=== PATIENT | female | born 1955 | race Caucasian/White ===

== ENCOUNTER 2018-06-19 13:49 | Inpatient (IN) | payer MEDICARE ==
[2018-06-19] MEDS ORDERED: LIDOCAINE 5% (700 MG) TRANSDERMAL ADH..PATCH TP ONE (14:19)
[2018-06-19] MEDS ORDERED: ACETAMINOPHEN 325 MG TABLET PO ONE (14:19)
[2018-06-19] MEDS ORDERED: IBUPROFEN 600 MG TABLET PO ONE (14:19)
--- NOTE | 2018-06-19 14:20 | ER Document Report ---
ED Medical Screen (RME) - General Chief Complaint: Fall Injury Stated Complaint: LEG INJURY Time Seen by Provider: 06/19/18 14:18 TRAVEL OUTSIDE OF THE [place] IN LAST 30 DAYS: No - HPI Notes: 06/19/18 14:20 Left thigh pain after fall last night patient very anxious tachycardia improved upon entering the examination - Related Data Allergies/Adverse Reactions: merbromin [From Mercurochrome] Allergy (Verified 06/19/18 14:18) Past Medical History - Social History Chew tobacco use (# tins/day): No Frequency of alcohol use: None Drug Abuse: None - Past Medical History Cardiac Medical History: Reports: Hx Hypercholesterolemia Endocrine Medical History: Reports: Hx Diabetes Mellitus Type 2 Renal/ Medical History: Denies: Hx Peritoneal Dialysis Psychiatric Medical History: Reports: Hx Schizophrenia - Immunizations Hx Diphtheria, Pertussis, Tetanus Vaccination: Yes Review of Systems - Review of Systems Musculoskeletal: Other - Thigh pain Physical Exam - Vital signs Vitals: Temp Pulse Resp BP Pulse Ox 97.7 F 127 H 24 H 108/57 L 95 06/19/18 14:02 06/19/18 14:02 06/19/18 14:02 06/19/18 14:02 06/19/18 14:02 - Respiratory Respiratory status: No respiratory distress Chest status: Nontender Breath sounds: Normal Chest palpation: Normal Course - Vital Signs Vital signs: Temp Pulse Resp BP Pulse Ox 97.7 F 127 H 24 H 108/57 L 95 06/19/18 14:02 06/19/18 14:02 06/19/18 14:02 06/19/18 14:02 06/19/18 14:02
--- NOTE | 2018-06-19 14:46 | ER Document Report ---
ED Fall - General Chief Complaint: Fall Injury Stated Complaint: LEG INJURY Time Seen by Provider: 06/19/18 14:18 Notes: 62-year-old female with history of schizophrenia and diabetes who fell last night. States that her foot was asleep and gave out from underneath her. Fell and landed on the left side of her body. Had immediate pain in the left hip. Had pain with standing. Did not want to move. This morning family member stated that she needed to get up but she refused to because of the pain. They were able to get her in the car and brought her to the ER for evaluation. Denies any shortness of breath. Denies any abdominal pain. Denies any other major symptoms. Points to the left hip at the area of the worst pain. TRAVEL OUTSIDE OF THE [place] IN LAST 30 DAYS: No - HPI Occurred: Yesterday Where: Home Context: Tripped Associated symptoms: None Location of injury/pain: Hip Quality of pain: Achy Severity: Moderate Pain Level: 3 - Related data Allergies/Adverse Reactions: merbromin [From Mercurochrome] Allergy (Verified 06/19/18 14:18) Past Medical History - General Information source: Patient - Social History Smoking Status: Current Every Day Smoker Chew tobacco use (# tins/day): No Frequency of alcohol use: None Drug Abuse: None Lives with: Family Family History: Reviewed & Not Pertinent Patient has suicidal ideation: No Patient has homicidal ideation: No - Past Medical History Cardiac Medical History: Reports: Hx Hypercholesterolemia Endocrine Medical History: Reports: Hx Diabetes Mellitus Type 2 Renal/ Medical History: Denies: Hx Peritoneal Dialysis Psychiatric Medical History: Reports: Hx Schizophrenia - Immunizations Hx Diphtheria, Pertussis, Tetanus Vaccination: Yes Review of Systems - Review of Systems Notes: Constitutional: denies: Chills, Diaphoresis, Fever, Malaise, Weakness EENT: denies: Eye discharge, Blurred vision, Tearing, Double vision, Nose congestion, Nose discharge, Throat swelling, Mouth pain Cardiovascular: denies: Palpitations, Heart racing, Orthopnea, Dyspnea, Chest pain Respiratory: denies: Cough, Hurts to breathe, Wheezing, Shortness of breath Gastrointestinal: denies: Abdominal pain, Diarrhea, Nausea, Vomiting, Black stools, bright red blood in stool Genitourinary: denies: Burning, Dysuria, Discharge, Frequency, Flank pain, Hematuria Musculoskeletal: Does complain of pain in the left hip and left knee. Mild deformity of the hip on the left. Hematologic/Lymphatic: denies: Anemia, Easy bleeding, Easy bruising, Blood clots Neurological/Psychological: denies: Confusion, Dementia, Depression, Loss of consciousness Skin: No lesions, no masses, no skin breakdown, no abscesses Physical Exam - Vital signs Vitals: Temp Pulse Resp BP Pulse Ox 97.7 F 127 H 24 H 108/57 L 95 06/19/18 14:02 06/19/18 14:02 06/19/18 14:02 06/19/18 14:02 06/19/18 14:02 Interpretation: Normal - General General appearance: Appears well, Alert - HEENT Head: Normocephalic, Atraumatic Eyes: Normal Pupils: PERRL - Respiratory Respiratory status: No respiratory distress Chest status: Nontender Breath sounds: Normal Chest palpation: Normal - Cardiovascular Rhythm: Regular Heart sounds: Normal auscultation Murmur: No - Abdominal Inspection: Normal Distension: No distension Bowel sounds: Normal Tenderness: Nontender Organomegaly: No organomegaly - Back Back: Normal, Nontender - Extremities General upper extremity: Normal inspection, Nontender, Normal color, Normal ROM , Normal temperature General lower extremity: Normal inspection, Tender, Normal color, Normal temperature, Other - There is pain to palpation of the left hip. Pain with range of motion. Slightly shortened and externally rotated left hip.. No: Nontender, Normal ROM, Normal weight bearing, Shirley's sign - Neurological Neuro grossly intact: Yes Cognition: Normal Orientation: AAOx4 [place] Coma Scale Eye Opening: Spontaneous [place] Coma Scale Verbal: Oriented [place] Coma Scale Motor: Obeys Commands [place] Coma Scale Total: 15 Speech: Normal Motor strength normal: LUE, RUE, LLE, RLE Sensory: Normal - Psychological Associated symptoms: Normal affect, Normal mood - Skin Skin Temperature: Warm Skin Moisture: Dry Skin Color: Normal Course - Re-evaluation Re-evalutation: 06/19/18 15:09 Patient has a femoral neck fracture on the left. Will consult with orthopedic surgery. N.p.o. Will get pre surgical screening labs. Pain medication and reassess. 06/19/18 16:13 Patient has an elevated WBC count with some acute renal failure. Consulted with Dr. Lerma as was unable to get in touch with Dr. Hill. He recommends we admit the patient to the medicine service at this time and they will sort out the orthopedic issues later but patient does not appear to need surgery immediately. 06/19/18 16:14 Laboratory 06/19/18 06/19/18 06/19/18 15:18 15:18 15:18 WBC 17.4 H RBC 3.87 Hgb 13.6 Hct 39.7 MCV 103 H MCH 35.1 H MCHC 34.2 RDW 13.5 Plt Count 189 Seg Neutrophils % 85.8 H Lymphocytes % 7.2 L Monocytes % 6.7 Eosinophils % 0.0 Basophils % 0.3 Absolute Neutrophils 14.9 H Absolute Lymphocytes 1.2 Absolute Monocytes 1.2 Absolute Eosinophils 0.0 Absolute Basophils 0.1 PT 13.3 INR 0.96 APTT 26.3 Sodium 138.5 Potassium 5.0 Chloride 104 Carbon Dioxide 20 L Anion Gap 15 BUN 44 H Creatinine 2.58 H Est GFR ( Amer) 23 L Est GFR (Non-Af Amer) 19 L Glucose 274 H Calcium 11.6 H Total Bilirubin 0.8 Direct Bilirubin 0.4 Neonat Total Bilirubin Not Reportable Neonat Direct Bilirubin Not Reportable Neonat Indirect Bili Not Reportable AST 71 H ALT 23 Alkaline Phosphatase 71 Total Protein 7.9 Albumin 4.4 Femur X-Ray 06/19/18 14:18 IMPRESSION: Moderately displaced fracture of the femoral neck. Hip X-Ray 06/19/18 14:18 IMPRESSION: Moderately displaced left femoral neck fracture. Knee X-Ray 06/19/18 14:18 IMPRESSION: No evidence of acute osseous injury. - Vital Signs Vital signs: Temp Pulse Resp BP Pulse Ox 97.7 F 127 H 24 H 148/67 H 94 06/19/18 14:02 06/19/18 14:02 06/19/18 16:01 06/19/18 16:00 06/19/18 16:01 - Laboratory Result Diagrams: 06/19/18 15:18 06/19/18 15:18 Laboratory results interpreted by me: 06/19/18 06/19/18 15:18 15:18 WBC 17.4 H MCV 103 H MCH 35.1 H Seg Neutrophils % 85.8 H Lymphocytes % 7.2 L Absolute Neutrophils 14.9 H Carbon Dioxide 20 L BUN 44 H Creatinine 2.58 H Est GFR ( Amer) 23 L Est GFR (Non-Af Amer) 19 L Glucose 274 H Calcium 11.6 H AST 71 H - EKG Interpretation by Me EKG shows normal: [place], Intervals, QRS Complexes, ST-T Waves Rate: Tachycardia Discharge - Discharge Clinical Impression: Fracture of femoral neck, left, closed Qualifiers: Encounter type: initial encounter Qualified Code(s): S72.002A - Fracture of unspecified part of neck of left femur, initial encounter for closed fracture Acute renal failure (ARF) Qualifiers: Acute renal failure type: unspecified Qualified Code(s): N17.9 - Acute kidney failure, unspecified Condition: Good Disposition: ADMITTED INPATIENT [facility] Admitted: Telemetry
[2018-06-19 15:29] LABS: ABSOLUTE BASOPHILS # (AUTO) 0.1 10^3/uL (0.0-0.2); ABSOLUTE LYMPHOCYTES (AUTO) 1.2 10^3/uL (0.5-4.7); ABSOLUTE MONOCYTES (AUTO) 1.2 10^3/uL (0.1-1.4); ABSOLUTE NEUT (AUTO) 14.9 10^3/uL (1.7-8.2); BASOPHILS % (AUTO) 0.3 % (0-2); HEMATOCRIT 39.7 % (36.0-47.0); HEMOGLOBIN 13.6 g/dL (12.0-15.5); LYMPHOCYTES % (AUTO) 7.2 % (13-45); MEAN CORPUSCULAR HEMOGLOBIN 35.1 pg (27.0-33.4); MEAN CORPUSCULAR HGB CONC 34.2 g/dL (32.0-36.0); MEAN CORPUSCULAR VOLUME 103 fl (80-97); MONOCYTES % (AUTO) 6.7 % (3-13); PLATELET COUNT 189 10^3/uL (150-450); RED BLOOD COUNT 3.87 10^6/uL (3.72-5.28); RED CELL DISTRIBUTION WIDTH 13.5 % (11.5-14.0); SEGMENTED NEUTROPHILS % (AUTO) 85.8 % (42-78); TOTAL CELLS COUNTED % (AUTO) 100 %; WHITE BLOOD COUNT 17.4 10^3/uL (4.0-10.5)
--- NOTE | 2018-06-19 15:31 | RADIOLOGY REPORT (SQ) ---
EXAM DESCRIPTION: FEMUR LEFT COMPLETED DATE/TIME: 06/19/2018 2:56 pm REASON FOR STUDY: fall leg pain COMPARISON: None. NUMBER OF VIEWS: Four views. TECHNIQUE: Two radiographic images acquired of the left femur to include hip and knee in at least on e projection. LIMITATIONS: None. FINDINGS: MINERALIZATION: Osteopenia. BONES: Moderately displaced fracture of the femoral neck. The femoral head remains well seated withi n the acetabulum. SOFT TISSUES: No obvious swelling or foreign body. OTHER: No other significant finding. IMPRESSION: Moderately displaced fracture of the femoral neck. TECHNICAL DOCUMENTATION: JOB ID: [id number] [email or web address]- All Rights Reserved Reading location - IP/workstation name: [email or web address]
--- NOTE | 2018-06-19 15:32 | RADIOLOGY REPORT (SQ) ---
EXAM DESCRIPTION: KNEE LEFT 3 VIEWS COMPLETED DATE/TIME: 06/19/2018 2:56 pm REASON FOR STUDY: fall leg pain COMPARISON: None. NUMBER OF VIEWS: Three views. TECHNIQUE: Frontal, lateral, and oblique radiographic images acquired of the left knee. LIMITATIONS: None. FINDINGS: MINERALIZATION: Osteopenia. BONES: No acute fracture or dislocation. No worrisome bone lesions. JOINT: No effusion. SOFT TISSUES: No soft tissue swelling. No radio-opaque foreign body. OTHER: No other significant finding. IMPRESSION: No evidence of acute osseous injury. TECHNICAL DOCUMENTATION: JOB ID: [id number] [employer]- All Rights Reserved Reading location - IP/workstation name: [email or web address]
--- NOTE | 2018-06-19 15:33 | RADIOLOGY REPORT (SQ) ---
EXAM DESCRIPTION: HIP LEFT AP/LATERAL COMPLETED DATE/TIME: 06/19/2018 2:56 pm REASON FOR STUDY: fall leg pain COMPARISON: None. NUMBER OF VIEWS: Two views. TECHNIQUE: AP pelvis and additional frog-leg view of the left hip. LIMITATIONS: None. FINDINGS: MINERALIZATION: Normal. LEFT HIP: Moderately displaced femoral neck fracture. RIGHT HIP: No fracture or dislocation. No worrisome bone lesions. PUBIS AND ISCHIUM: No fracture. PELVIS: No fracture. SACRUM: No fracture or dislocation. No worrisome bone lesions. LOWER LUMBAR SPINE: No fracture or dislocation. No worrisome bone lesions. No significant disc disea se. SOFT TISSUES: No findings. OTHER: No other significant finding. IMPRESSION: Moderately displaced left femoral neck fracture. TECHNICAL DOCUMENTATION: JOB ID: [id number] [employer]- All Rights Reserved Reading location - IP/workstation name: [email or web address]
[2018-06-19 15:36] LABS: INTERNATIONAL RATION (INR) 0.96; PROTHROMBIN TIME 13.3 SEC (11.4-15.4)
[2018-06-19 15:37] LABS: PARTIAL THROMBOPLASTIN TIME 26.3 SEC (23.5-35.8)
[2018-06-19] MEDS ORDERED: FENTANYL CITRATE INJ/PF 100 MCG/2 ML AMPUL IV ONE (15:37)
[2018-06-19 15:43] LABS: ALANINE AMINOTRANSFERASE 23 U/L (9-52); ALBUMIN 4.4 g/dL (3.5-5.0); ALKALINE PHOSPHATASE 71 U/L (38-126); ANION GAP 15 (5-19); ASPARTATE AMINO TRANSFERASE 71 U/L (14-36); BILIRUBIN,DIRECT 0.4 mg/dL (0.0-0.4); BILIRUBIN,TOTAL 0.8 mg/dL (0.2-1.3); BLOOD UREA NITROGEN 44 mg/dL (7-20); CALCIUM 11.6 mg/dL (8.4-10.2); CARBON DIOXIDE 20 mmol/L (22-30); CHLORIDE 104 mmol/L (98-107); GLUCOSE 274 mg/dL (75-110); SODIUM 138.5 mmol/L (137-145); TOTAL PROTEIN 7.9 g/dL (6.3-8.2)
[2018-06-19] MEDS ORDERED: NORMAL SALINE 1000 ML 1,000 ML IV ONE (15:46)
[2018-06-19] MEDS ORDERED: NICOTINE 21 MG/24 HR PATCH.TD24 TD ONE (16:29)
[2018-06-19] MEDS ORDERED: ACETAMINOPHEN 650 MG SUPP.RECT PR PRN (18:20)
[2018-06-19] MEDS ORDERED: MAG HYDROX/AL HYDROX/SIMETH SUSP 30 ML UDCUP PO PRN (18:20)
[2018-06-19] MEDS ORDERED: TEMAZEPAM 15 MG CAPSULE PO PRN (18:20)
[2018-06-19] MEDS ORDERED: MAGNESIUM HYDROXIDE SUSP 30 ML UDCUP PO PRN (18:20)
[2018-06-19] MEDS ORDERED: ONDANSETRON HCL INJ/PF 4 MG/2 ML SDV IV PRN (18:20)
[2018-06-19] MEDS ORDERED: ONDANSETRON 4 MG TAB.RAPDIS PO PRN (18:20)
[2018-06-19] MEDS ORDERED: MORPHINE SULFATE 10 MG/ML INJ IV PRN (18:30)
[2018-06-19] MEDS ORDERED: NICOTINE 21 MG/24 HR PATCH.TD24 TD PRN (18:34)
[2018-06-19] MEDS ORDERED: PROMETHAZINE HCL INJ 25 MG/1 ML VIAL IV PRN (18:40)
[2018-06-19 19:44] LABS: CREATINE KINASE MB 14.2 ng/mL (<4.55)
[2018-06-19 19:51] LABS: TROPONIN I 4.48 ng/mL
[2018-06-19] MEDS: 1/2 NORMAL SALINE 1,000 ML IV PRN (19:52)
[2018-06-19] MEDS ORDERED: DOCUSATE SODIUM 100 MG CAPSULE PO ONE (20:00)
--- NOTE | 2018-06-19 20:45 | PDOC H&P ---
History of Present Illness Admission Date/PCP: 06/19/18 16:18 HOLDEN RHODES MD Patient complains of: Fall with injury to left hip History of Present Illness: SHIRLEY MONTAGUE is a 62 year old female who complains of a painful left hip since a fall last evening. He states that she was seated and when she stood to walk she noticed that her left foot was "asleep" causing her left leg to get out from underneath her and a subsequent fall to the floor where she landed on the left side of her body striking her hip and pelvic region as the point of first contact. She noted immediate pain in her left hip and had worse pain when she tried to get up and stand. She stayed in the same position for quite some time until her family members found her in the morning and convinced her that she needed to get up and get some help. She refused to stand or move and so they help to lift her to the car and brought her to the emergency room for evaluation. She indicates that the pain that she has is located in the left hip and is not radiating. The pain is described as a sharp grating pain, worse with any movement and lessened by rest/remaining still. At its worst the pain is a 10 out of 10 in severity and at rest the pain is a 0-1 out of 10. She has not had prior similar episodes and has not identified any additional aggravating or ameliorating factors for her hip pain. She has a past history of schizophrenia and diabetes and takes numerous medications. In the emergency room she was found to have significant renal failure with a creatinine of 2.58 and a BUN of 44. She was admitted to the hospitalist service for medical stabilization prior to surgical attention to her left hip. Dr. Hill will be consulted for orthopedic management. Past Medical History Cardiac Medical History: Reports: Hyperlipidema, Other - Diabetes mellitus type 2 Denies: Atrial Fibrillation, Congestive Heart Failure, Coronary Artery Disease, DVT, Myocardial Infarction, Hypertension, Peripheral Vascular Disease, Pulmonary Embolism, Heart Murmur Pulmonary Medical History: Denies: Asthma, Chronic Obstructive Pulmonary Disease (COPD), Respiratory Failure EENT Medical History: Reports: None Neurological Medical History: Denies: Hemorrhagic CVA, Ischemic CVA, Seizures Endocrine Medical History: Reports: Diabetes Mellitus Type 2 Denies: Diabetes Mellitus Type 1, Hyperthyroidism, Hypothyroidism Renal/ Medical History: Denies: Chronic Kidney Disease, Nephrolithiasis Malignancy Medical History: Reports: None GI Medical History: Denies: Crohn's Disease, Peptic Ulcer Disease, Ulcerative Colitis Musculoskeltal Medical History: Denies: Arthritis, Gout Skin Medical History: Denies: Eczema, Psoriasis Psychiatric Medical History: Reports: Tobacco Dependency, Other - Schizophrenia Denies: Alcohol Dependency Traumatic Medical History: Reports: None Hematology: Denies: Hemophilia, Bleeding Tendencies Infectious Medical History: Reports: None Past Surgical History Past Surgical History: Reports: None Social History Information Source: Patient Lives with: Family Smoking Status: Current Every Day Smoker Cigarettes Packs Per Day: 1.5 Number of Years Smokin Frequency of Alcohol Use: None Hx Recreational Drug Use: No Drugs: None Hx Prescription Drug Abuse: No Family History Family History: DM Parental Family History Reviewed: Yes Children Family History Reviewed: NA Sibling(s) Family History Reviewed.: Yes Medication/Allergy Home Medications: Calcium Carbonate/Vitamin D3 [Calcium 600 + Vit D Caplet] 1 tab-cap PO DAILY Linagliptin [Tradjenta] 5 mg PO QPM 06/19/18 Lisinopril [Prinivil 10 mg Tablet] 10 mg PO DAILY 06/19/18 Multivitamin [Multiple Vitamins] 1 each PO QPM 06/19/18 Quetiapine Fumarate [Seroquel 100 mg Tablet] 100 mg PO DAILY 06/19/18 Rosuvastatin Calcium [Crestor 5 mg Tablet] 5 mg PO DAILY 06/19/18 Thiothixene 5 mg PO QID 06/19/18 Allergies/Adverse Reactions: merbromin [From Mercurochrome] Allergy (Verified 06/19/18 14:18) Review of Systems Constitutional: ABSENT: chills, fever(s) Eyes: ABSENT: visual disturbances, other - Ocular pain Ears: ABSENT: hearing changes, other - ear pain Nose, Mouth, and Throat: ABSENT: mouth pain, sore throat Cardiovascular: ABSENT: chest pain, dyspnea on exertion, edema, palpitations Respiratory: ABSENT: cough, dyspnea Gastrointestinal: ABSENT: abdominal pain, constipation, diarrhea, nausea, vomiting Genitourinary: ABSENT: dysuria, hematuria Musculoskeletal: ABSENT: back pain, deformity Integumentary: ABSENT: pruritus, rash Neurological: ABSENT: convulsions, vertigo Psychiatric: ABSENT: anxiety, depression, hallucinations Endocrine: ABSENT: cold intolerance, heat intolerance Hematologic/Lymphatic: ABSENT: easy bleeding, easy bruising Allergic/Immunologic: ABSENT: seasonal rhinorrhea, other - Insect bite allergy Physical Exam Vital Signs: Temp Pulse Resp BP Pulse Ox 98.2 F 105 H 14 128/61 H 93 06/19/18 17:25 06/19/18 17:25 06/19/18 17:25 06/19/18 17:25 06/19/18 17:25 Intake & Output 06/17/18 06/18/18 06/19/18 23:59 23:59 23:59 Intake Total 1000 Balance 1000 Weight 69.8 kg General appearance: PRESENT: no acute distress, cooperative Head exam: PRESENT: atraumatic, normocephalic Eye exam: ABSENT: conjunctival injection, scleral icterus Ear exam: PRESENT: normal external ear exam. ABSENT: drainage Mouth exam: PRESENT: neck supple, tongue midline Neck exam: ABSENT: thyromegaly, tracheal deviation Respiratory exam: PRESENT: clear to auscultation yasmeen, symmetrical, unlabored Cardiovascular exam: PRESENT: RRR. ABSENT: clicks, gallop, rubs Pulses: PRESENT: normal radial pulses, normal dorsalis pedis pul Vascular exam: PRESENT: normal capillary refill. ABSENT: pallor GI/Abdominal exam: PRESENT: normal bowel sounds, soft Rectal exam: PRESENT: deferred Extremities exam: PRESENT: tenderness - Left hip. ABSENT: joint swelling, pedal edema Musculoskeletal exam: PRESENT: deformity - Shortened and externally rotated left lower extremity. ABSENT: dislocation Neurological exam: PRESENT: alert, oriented to person, oriented to place, oriented to time, oriented to situation, CN II-XII grossly intact. ABSENT: motor sensory deficit Psychiatric exam: PRESENT: appropriate affect, normal mood Skin exam: ABSENT: jaundice, rash, urticaria Results Laboratory Results: 06/19/18 19:09 Creatine Kinase 220 H Impressions: Femur X-Ray 06/19/18 14:18 IMPRESSION: Moderately displaced fracture of the femoral neck. Hip X-Ray 06/19/18 14:18 IMPRESSION: Moderately displaced left femoral neck fracture. Knee X-Ray 06/19/18 14:18 IMPRESSION: No evidence of acute osseous injury. Assessment & Plan - Diagnosis (1) Fracture of femoral neck, left, closed Qualifiers: Encounter type: initial encounter Qualified Code(s): S72.002A - Fracture of unspecified part of neck of left femur, initial encounter for closed fracture Is this a current diagnosis for this admission?: Yes Plan: Dr. Hill has been consulted for management of her hip fracture. We will provide analgesia for her utilizing morphine with a sliding scale giving her 2 mg IV every 3 hours as needed pain 1-2/5, 3 mg IV every 2 hours as needed pain 3 -4/5, 4 mg IV every 1 hour as needed pain 5/5. We will also provide supportive cares and other symptomatic cares as needed. (2) Acute renal failure (ARF) Qualifiers: Acute renal failure type: unspecified Qualified Code(s): N17.9 - Acute kidney failure, unspecified Is this a current diagnosis for this admission?: Yes Plan: Run his renal failure is of uncertain duration but we will treat this by addressing her medications and discontinuing the lisinopril she has been taking will also control her blood sugar as well as possible and evaluate her diabetic control with a hemoglobin A1c in the morning. Additionally will avoid any medications that may worsen renal failure and we will hydrate her and reevaluate our therapy in the morning. (3) Hyperlipidemia Qualifiers: Hyperlipidemia type: unspecified Qualified Code(s): E78.5 - Hyperlipidemia , unspecified Is this a current diagnosis for this admission?: Yes Plan: Shirley will be continued on her formulary substitution for Crestor during her hospital course. (4) Schizophrenia Qualifiers: Schizophrenia type: unspecified Qualified Code(s): F20.9 - Schizophrenia, unspecified Is this a current diagnosis for this admission?: Yes Plan: Shirley has chronic schizophrenia and will be maintained on her usual medications or reasonable substitutions per our formulary. (5) Nicotine dependence with current use Is this a current diagnosis for this admission?: Yes Plan: Patient will be given the opportunity to use a nicotine patch as needed for her nicotine withdrawal symptoms should they occur. - Time Time Spent: 50 to 70 Minutes Smoking Cessation Education: 3 to 10 minutes Medications reviewed and adjusted accordingly: Yes - Plan Summary Plan Summary: Admit to the surgical floor for ongoing treatment of her left femoral neck fracture with Dr. Hill consulting.
[2018-06-19] MEDS: METOPROLOL SUCCINATE 50 MG TAB.SR.24H PO SCH (21:07)
[2018-06-19] MEDS: PANTOPRAZOLE SODIUM 40 MG VIAL IV SCH (21:08)
[2018-06-19] MEDS: QUETIAPINE FUMARATE 100 MG TABLET PO SCH (21:08)
[2018-06-19] MEDS: CHLORPROMAZINE HCL 10 MG TABLET PO SCH (21:09)
--- NOTE | 2018-06-19 21:47 | EKG REPORT ---
SEVERITY:- OTHERWISE NORMAL ECG - SINUS TACHYCARDIA : Confirmed by: Vito Garces MD 19-Jun-2018 21:46:20
[2018-06-19] MEDS: MORPHINE SULFATE 10 MG/ML INJ IV PRN (22:50)
[2018-06-20] MEDS: 1/2 NORMAL SALINE 1,000 ML IV PRN ×3 (00:08→11:35)
[2018-06-20 02:49] LABS: CREATINE KINASE MB 10.6 ng/mL (<4.55); TROPONIN I 4.1 ng/mL
[2018-06-20] MEDS: MORPHINE SULFATE 10 MG/ML INJ IV PRN ×3 (03:30→13:06)
[2018-06-20 07:38] LABS: ABSOLUTE BASOPHILS # (AUTO) 0.1 10^3/uL (0.0-0.2); ABSOLUTE EOSINOPHILS # (AUTO) 0.1 10^3/uL (0.0-0.6); ABSOLUTE LYMPHOCYTES (AUTO) 2.9 10^3/uL (0.5-4.7); ABSOLUTE MONOCYTES (AUTO) 1.4 10^3/uL (0.1-1.4); ABSOLUTE NEUT (AUTO) 9.8 10^3/uL (1.7-8.2); BASOPHILS % (AUTO) 0.4 % (0-2); HEMATOCRIT 34.7 % (36.0-47.0); HEMOGLOBIN 11.7 g/dL (12.0-15.5); LYMPHOCYTES % (AUTO) 20.5 % (13-45); MEAN CORPUSCULAR HEMOGLOBIN 35.4 pg (27.0-33.4); MEAN CORPUSCULAR HGB CONC 33.8 g/dL (32.0-36.0); MEAN CORPUSCULAR VOLUME 105 fl (80-97); MONOCYTES % (AUTO) 9.9 % (3-13); PLATELET COUNT 161 10^3/uL (150-450); RED BLOOD COUNT 3.32 10^6/uL (3.72-5.28); RED CELL DISTRIBUTION WIDTH 13.4 % (11.5-14.0); SEGMENTED NEUTROPHILS % (AUTO) 68.2 % (42-78); TOTAL CELLS COUNTED % (AUTO) 100 %; WHITE BLOOD COUNT 14.4 10^3/uL (4.0-10.5)
[2018-06-20 07:59] LABS: ANION GAP 6 (5-19); BLOOD UREA NITROGEN 35 mg/dL (7-20); CALCIUM 9.1 mg/dL (8.4-10.2); CARBON DIOXIDE 23 mmol/L (22-30); CHLORIDE 112 mmol/L (98-107); CHOLESTEROL 142.41 mg/dL (0-200); CREATINE KINASE 304 U/L (30-135); GLUCOSE 146 mg/dL (75-110); POTASSIUM 4.9 mmol/L (3.6-5.0); SODIUM 140.5 mmol/L (137-145); TRIGLYCERIDES 155 mg/dL (<150)
[2018-06-20 08:11] LABS: DIRECT LDL 82 mg/dL (<100)
[2018-06-20 08:12] LABS: CREATINE KINASE MB 8.6 ng/mL (<4.55); TROPONIN I 3.1 ng/mL
[2018-06-20] MEDS: CHLORPROMAZINE HCL 10 MG TABLET PO SCH ×3 (09:27→22:34)
[2018-06-20] MEDS: METOPROLOL SUCCINATE 50 MG TAB.SR.24H PO SCH (09:27)
[2018-06-20] MEDS: DOCUSATE SODIUM 100 MG CAPSULE PO SCH (09:27)
[2018-06-20] MEDS: PANTOPRAZOLE SODIUM 40 MG VIAL IV SCH ×2 (09:27→22:35)
[2018-06-20] MEDS ORDERED: BUDESONIDE NEB 0.5 MG/2 ML AMPUL NEB SCH (10:00)
[2018-06-20] MEDS: IPRATROPIUM BROMIDE 0.02% NEB 0.5 MG/2.5 ML AMPUL NEB SCH ×2 (11:20→16:05)
[2018-06-20] MEDS: LEVALBUTEROL HCL NEB 1.25 MG/3 ML AMPUL NEB SCH ×2 (11:20→16:06)
--- NOTE | 2018-06-20 13:31 | PDOC PROGRESS REPORT ---
Subjective Progress Note for:: 06/20/18 Subjective:: EDITH MONTAGUE is a 62 year old female who complains of a painful left hip since a fall last evening. He states that she was seated and when she stood to walk she noticed that her left foot was "asleep" causing her left leg to get out from underneath her and a subsequent fall to the floor where she landed on the left side of her body striking her hip and pelvic region as the point of first contact. She noted immediate pain in her left hip and had worse pain when she tried to get up and stand. She stayed in the same position for quite some time until her family members found her in the morning and convinced her that she needed to get up and get some help. She refused to stand or move and so they help to lift her to the car and brought her to the emergency room for evaluation. She indicates that the pain that she has is located in the left hip and is not radiating. The pain is described as a sharp grating pain, worse with any movement and lessened by rest/remaining still. At its worst the pain is a 10 out of 10 in severity and at rest the pain is a 0-1 out of 10. She has not had prior similar episodes and has not identified any additional aggravating or ameliorating factors for her hip pain. She has a past history of schizophrenia and diabetes and takes numerous medications. In the emergency room she was found to have significant renal failure with a creatinine of 2.58 and a BUN of 44. She was admitted to the hospitalist service for medical stabilization prior to surgical attention to her left hip. Dr. Hill will be consulted for orthopedic management. 06/20/18: Edith is doing very well today she slept well and she has been tolerating her IVs and the changes that were made to her medical regimen. She acknowledges that she has had good pain control and she denies new problems or symptoms. She has had no nausea, vomiting, chest pain, dyspnea or palpitations. Her cardiac enzymes have been consistently elevated without substantial change other than that attributed to dilution (due to IV rehydration) over the course of the serial evaluations. Her troponin was 4.48 initially and dropped to 3.1 over the 12-hour course. Her CK-MB was also significantly elevated at 14 and dropped to 8 over the 12-hour course. Again these are considered to be delusional changes as the patient's creatinine was initially 2.58 and dropped to 2.10. Her EKG's show a normal sinus rhythm without evidence of ectopy or cardiac ischemia or injury. Electrolytes are normal and her hemoglobin A1c is 6.2. With these findings and with her general improvement after hydration overnight she is judged to be medically stable for surgical intervention for her left hip fracture. Dr. Hill has been informed that the patient is adequately stable and ready for surgery in person as we extensively discussed her case and medical conditions. Reason For Visit: MODERATELY DISPLACED LEFT FEMORAL NECK FRACTURE Physical Exam Vital Signs: Temp Pulse Resp BP Pulse Ox 98.2 F 75 19 110/47 L 96 06/20/18 12:00 06/20/18 12:00 06/20/18 12:00 06/20/18 12:00 06/20/18 12:00 Intake & Output 06/18/18 06/19/18 06/20/18 23:59 23:59 23:59 Intake Total 1000 2898 Balance 1000 2898 Weight 69.8 kg 67.7 kg General appearance: PRESENT: no acute distress, cooperative Head exam: PRESENT: atraumatic, normocephalic Eye exam: ABSENT: conjunctival injection, scleral icterus Ear exam: PRESENT: normal external ear exam. ABSENT: bleeding Mouth exam: PRESENT: neck supple, tongue midline Neck exam: ABSENT: JVD, thyromegaly, tracheal deviation Respiratory exam: PRESENT: clear to auscultation yasmeen, symmetrical, unlabored Cardiovascular exam: PRESENT: RRR. ABSENT: clicks, gallop, rubs Vascular exam: PRESENT: normal capillary refill. ABSENT: pallor GI/Abdominal exam: PRESENT: normal bowel sounds, soft Rectal exam: PRESENT: deferred Extremities exam: PRESENT: tenderness - Tender left hip to palpation or movement. ABSENT: clubbing, pedal edema Musculoskeletal exam: PRESENT: deformity - Shortening and external rotation of the left lower extremity. ABSENT: ambulatory Neurological exam: PRESENT: alert, oriented to person, oriented to place, oriented to time, oriented to situation, CN II-XII grossly intact. ABSENT: motor sensory deficit Psychiatric exam: PRESENT: appropriate affect, normal mood Skin exam: ABSENT: jaundice, rash, urticaria Results Laboratory Results: 06/20/18 07:30 06/20/18 07:30 06/20/18 06/20/18 06/20/18 07:30 07:30 07:30 WBC 14.4 H RBC 3.32 L Hgb 11.7 L Hct 34.7 L MCV 105 H MCH 35.4 H MCHC 33.8 RDW 13.4 Plt Count 161 Seg Neutrophils % 68.2 Lymphocytes % 20.5 Monocytes % 9.9 Eosinophils % 1.0 Basophils % 0.4 Absolute Neutrophils 9.8 H Absolute Lymphocytes 2.9 Absolute Monocytes 1.4 Absolute Eosinophils 0.1 Absolute Basophils 0.1 Sodium 140.5 Potassium 4.9 Chloride 112 H Carbon Dioxide 23 Anion Gap 6 BUN 35 H Creatinine 2.10 H Est GFR ( Amer) 29 L Est GFR (Non-Af Amer) 24 L Glucose 146 H Calcium 9.1 Magnesium 1.7 Triglycerides 155 H Cholesterol 142.41 LDL Cholesterol Direct 82 VLDL Cholesterol 31.0 HDL Cholesterol 45 TSH 4.40 06/19/18 06/19/18 06/20/18 19:09 19:09 01:15 Creatine Kinase 220 H 282 H CK-MB (CK-2) 14.20 H Troponin I 4.480 06/20/18 06/20/18 06/20/18 01:15 07:30 07:30 Creatine Kinase 304 H CK-MB (CK-2) 10.60 H 8.60 H Troponin I 4.100 3.100 Impressions: Femur X-Ray 06/19/18 14:18 IMPRESSION: Moderately displaced fracture of the femoral neck. Hip X-Ray 06/19/18 14:18 IMPRESSION: Moderately displaced left femoral neck fracture. Knee X-Ray 06/19/18 14:18 IMPRESSION: No evidence of acute osseous injury. Assessment & Plan - Diagnosis (1) Fracture of femoral neck, left, closed Qualifiers: Encounter type: initial encounter Qualified Code(s): S72.002A - Fracture of unspecified part of neck of left femur, initial encounter for closed fracture Is this a current diagnosis for this admission?: Yes Plan: Dr. Hill has been consulted for management of her hip fracture. We will provide analgesia for her utilizing morphine with a sliding scale giving her 2 mg IV every 3 hours as needed pain 1-2/5, 3 mg IV every 2 hours as needed pain 3 -4/5, 4 mg IV every 1 hour as needed pain 5/5. We will also provide supportive cares and other symptomatic cares as needed. 06/20/18: Patient is medically cleared for surgical intervention concerning her moderately displaced left femoral neck (subcapital) fracture. (2) Acute renal failure (ARF) Qualifiers: Acute renal failure type: unspecified Qualified Code(s): N17.9 - Acute kidney failure, unspecified Is this a current diagnosis for this admission?: Yes Plan: Run his renal failure is of uncertain duration but we will treat this by addressing her medications and discontinuing the lisinopril she has been taking will also control her blood sugar as well as possible and evaluate her diabetic control with a hemoglobin A1c in the morning. Additionally will avoid any medications that may worsen renal failure and we will hydrate her and reevaluate our therapy in the morning. 06/20/18: Patient's renal failure significantly improved with hydration as her creatinine fell from 2.58 down to 2.10. She will be continued on IV fluids and her current regimen. We will follow her daily lab work and reassess therapy on a regular basis. It is most probable that the patient has an underlying chronic renal insufficiency. (3) Hyperlipidemia Qualifiers: Hyperlipidemia type: unspecified Qualified Code(s): E78.5 - Hyperlipidemia , unspecified Is this a current diagnosis for this admission?: Yes Plan: Edith will be continued on her formulary substitution for Crestor during her hospital course. (4) Schizophrenia Qualifiers: Schizophrenia type: unspecified Qualified Code(s): F20.9 - Schizophrenia, unspecified Is this a current diagnosis for this admission?: Yes Plan: Edith has chronic schizophrenia and will be maintained on her usual medications or reasonable substitutions per our formulary. (5) Nicotine dependence with current use Is this a current diagnosis for this admission?: Yes Plan: Patient will be given the opportunity to use a nicotine patch as needed for her nicotine withdrawal symptoms should they occur. - Time Time Spent with patient: 25-34 minutes
[2018-06-20] MEDS ORDERED: PROMETHAZINE HCL INJ 25 MG/1 ML VIAL IV PRN (14:34)
[2018-06-20] MEDS ORDERED: FENTANYL CITRATE INJ/PF 100 MCG/2 ML AMPUL IV PRN ×3 (14:34)
[2018-06-20] MEDS ORDERED: MEPERIDINE HCL/PF INJ 25 MG/1 ML DISP.SYRIN IV PRN (14:34)
[2018-06-20] MEDS ORDERED: DIPHENHYDRAMINE HCL 50 MG/ML VIAL IV PRN (14:34)
[2018-06-20] MEDS ORDERED: PROPOFOL INJ 200 MG/20 ML VIAL IV ONE (15:01)
[2018-06-20] MEDS ORDERED: TRANEXAMIC ACID INJ/PF 1,000 MG/10 ML SDV IV ONE (15:01)
[2018-06-20] MEDS ORDERED: ONDANSETRON HCL INJ/PF 4 MG/2 ML SDV ONE (15:01)
[2018-06-20] MEDS ORDERED: MIDAZOLAM 2 MG/2 ML INJ ONE (15:01)
[2018-06-20] MEDS ORDERED: BUPIVACAINE HCL/DEX-WATER/PF 15 MG/2 ML AMPULE ONE (15:02)
[2018-06-20] MEDS ORDERED: CEFAZOLIN INJ 1 GM VIAL ONE (15:03)
[2018-06-20] MEDS ORDERED: THROMBIN (BOVINE) 5000 UNIT EPITAXIS KIT ONE (15:12)
--- NOTE | 2018-06-20 15:20 | PDOC CONSULTATION ---
Consultation Consult Date: 06/20/18 Consult reason:: Displaced left femoral neck fracture History of Present Illness Admission Date/PCP: 06/19/18 16:18 HOLDEN RHODES MD History of Present Illness: EDITH MONTAGUE is a 62 year old female female with multiple comorbidities including schizophrenia. She is status post fall suffering a displaced left femoral neck fracture. Patient was brought by EMS evaluated by the ER and x- rayed and confirmed diagnosis of left hip fracture. She complains of pain in the groin and pain in the left side. Inability to weight-bear. Pain is 5 out of 5 with motion and at rest is just 1 2 out of 5. Denies any numbness or tingling or paresthesias. Mild deformity of the left lower extremity weakness second to pain. No other extremity deformity or complaints from the fall. Denies any numbness or tingling or paresthesias and denies any loss of consciousness. Past Medical History Cardiac Medical History: Reports: Hyperlipidema, Other - Diabetes mellitus type 2 Denies: Atrial Fibrillation, Congestive Heart Failure, Coronary Artery Disease, DVT, Myocardial Infarction, Hypertension, Peripheral Vascular Disease, Pulmonary Embolism, Heart Murmur Pulmonary Medical History: Denies: Asthma, Chronic Obstructive Pulmonary Disease (COPD), Respiratory Failure EENT Medical History: Reports: None Neurological Medical History: Denies: Hemorrhagic CVA, Ischemic CVA, Seizures Endocrine Medical History: Reports: Diabetes Mellitus Type 2 Denies: Diabetes Mellitus Type 1, Hyperthyroidism, Hypothyroidism Renal/ Medical History: Denies: Chronic Kidney Disease, Nephrolithiasis Malignancy Medical History: Reports: None GI Medical History: Denies: Crohn's Disease, Peptic Ulcer Disease, Ulcerative Colitis Musculoskeltal Medical History: Denies: Arthritis, Gout Skin Medical History: Denies: Eczema, Psoriasis Psychiatric Medical History: Reports: Tobacco Dependency, Other - Schizophrenia Denies: Alcohol Dependency Traumatic Medical History: Reports: None Hematology: Denies: Hemophilia, Bleeding Tendencies Infectious Medical History: Reports: None Past Surgical History Past Surgical History: Reports: None Social History Lives with: Family Smoking Status: Current Every Day Smoker Cigarettes Packs Per Day: 1.5 Number of Years Smokin Frequency of Alcohol Use: None Hx Recreational Drug Use: No Drugs: None Hx Prescription Drug Abuse: No Family History Family History: DM Parental Family History Reviewed: No Children Family History Reviewed: No Sibling(s) Family History Reviewed.: No Medication/Allergy Home Medications: Calcium Carbonate/Vitamin D3 [Calcium 600 + Vit D Caplet] 1 tab-cap PO DAILY Linagliptin [Tradjenta] 5 mg PO QPM 06/19/18 Lisinopril [Prinivil 10 mg Tablet] 10 mg PO DAILY 06/19/18 Multivitamin [Multiple Vitamins] 1 each PO QPM 06/19/18 Quetiapine Fumarate [Seroquel 100 mg Tablet] 100 mg PO DAILY 06/19/18 Rosuvastatin Calcium [Crestor 5 mg Tablet] 5 mg PO DAILY 06/19/18 Thiothixene 5 mg PO QID 06/19/18 Allergies/Adverse Reactions: merbromin [From Mercurochrome] Allergy (Verified 06/19/18 14:18) Review of Systems Review of Systems: Constitutional: [PRESENT: as per HPI. ABSENT: chills, fever(s), headache(s), weight gain, weight loss] Eyes: [ABSENT: visual disturbances] Ears: [ABSENT: hearing changes] Cardiovascular: [ABSENT: chest pain, dyspnea on exertion, edema, orthropnea, palpitations] Respiratory: [ABSENT: cough, hemoptysis] Gastrointestinal: [ABSENT: abdominal pain, constipation, diarrhea, hematemesis, hematochezia, nausea, vomiting] Genitourinary: [ABSENT: dysuria, hematuria] Musculoskeletal: As per HPI Integumentary: [ABSENT: rash, wounds] Neurological: [ABSENT: abnormal gait, abnormal speech, confusion, dizziness, focal weakness, syncope] Psychiatric: [ABSENT: anxiety, depression, homicidal ideation, suicidal ideation ] Endocrine: [ABSENT: cold intolerance, heat intolerance, menstrual abnormalities , polydipsia, polyuria] Hematologic/Lymphatic: [ABSENT: easy bleeding, easy bruising, lymphadenopathy] Physical Exam Vital Signs: Temp Pulse Resp BP Pulse Ox 36.6 C 72 19 118/76 95 06/20/18 08:00 06/20/18 08:00 06/20/18 08:00 06/20/18 08:00 06/20/18 08:00 Intake & Output 06/19/18 06/20/18 06/21/18 06:59 06:59 06:59 Intake Total 2898 1000 Balance 2898 1000 Weight 67.7 kg General appearance: PRESENT: no acute distress Head exam: PRESENT: atraumatic, normocephalic Eye exam: PRESENT: EOMI, other. ABSENT: nystagmus Ear exam: PRESENT: normal external ear exam - Symmetric round pupils Mouth exam: PRESENT: neck supple Neck exam: ABSENT: lymphadenopathy, thyromegaly, tracheal deviation Respiratory exam: PRESENT: symmetrical, unlabored. ABSENT: accessory muscle use , tachypnea Cardiovascular exam: PRESENT: RRR Pulses: PRESENT: normal dorsalis pedis pul Vascular exam: PRESENT: normal capillary refill. ABSENT: pallor GI/Abdominal exam: PRESENT: soft. ABSENT: organolmegaly, tenderness Neurological exam: PRESENT: alert, awake, oriented to person, oriented to place , oriented to time, oriented to situation Psychiatric exam: PRESENT: appropriate affect, normal mood Skin exam: PRESENT: intact. ABSENT: erythema, rash, skin tears Adult Front & Back Image: 1 - Tender palpation over the groin and femur. Intense pain with attempted logroll flexion. The left lower extremity is shortened and externally rotated in position. She does have EHL FHL and tibialis anterior with intact motor. Good sensation to light touch and good capillary refill. Results Laboratory Results: 06/20/18 07:30 06/20/18 07:30 06/20/18 06/20/18 06/20/18 07:30 07:30 07:30 WBC 14.4 H RBC 3.32 L Hgb 11.7 L Hct 34.7 L MCV 105 H MCH 35.4 H MCHC 33.8 RDW 13.4 Plt Count 161 Seg Neutrophils % 68.2 Lymphocytes % 20.5 Monocytes % 9.9 Eosinophils % 1.0 Basophils % 0.4 Absolute Neutrophils 9.8 H Absolute Lymphocytes 2.9 Absolute Monocytes 1.4 Absolute Eosinophils 0.1 Absolute Basophils 0.1 Sodium 140.5 Potassium 4.9 Chloride 112 H Carbon Dioxide 23 Anion Gap 6 BUN 35 H Creatinine 2.10 H Est GFR ( Amer) 29 L Est GFR (Non-Af Amer) 24 L Glucose 146 H Calcium 9.1 Magnesium 1.7 Triglycerides 155 H Cholesterol 142.41 LDL Cholesterol Direct 82 VLDL Cholesterol 31.0 HDL Cholesterol 45 TSH 4.40 06/19/18 06/19/18 06/20/18 19:09 19:09 01:15 Creatine Kinase 220 H 282 H CK-MB (CK-2) 14.20 H Troponin I 4.480 06/20/18 06/20/18 06/20/18 01:15 07:30 07:30 Creatine Kinase 304 H CK-MB (CK-2) 10.60 H 8.60 H Troponin I 4.100 3.100 Impressions: Femur X-Ray 06/19/18 14:18 IMPRESSION: Moderately displaced fracture of the femoral neck. Hip X-Ray 06/19/18 14:18 IMPRESSION: Moderately displaced left femoral neck fracture. Knee X-Ray 06/19/18 14:18 IMPRESSION: No evidence of acute osseous injury. Status: Image reviewed by me Assessment & Plan - Diagnosis (1) Fracture of femoral neck, left, closed Qualifiers: Encounter type: initial encounter Qualified Code(s): S72.002A - Fracture of unspecified part of neck of left femur, initial encounter for closed fracture Is this a current diagnosis for this admission?: Yes Plan: 62-year-old female multiple comorbidities including schizophrenia. She has a displaced left femoral neck fracture. Due to her age she probably be best served with a total hip arthroplasty for better function and longevity of the prosthesis versus hemiarthroplasty. Discussed the risk and benefits of proceeding with surgery and the patient understood as well as her family member who signed for consent. Patient has been n.p.o. since midnight and will be taken today to the OR for total hip arthroplasty versus hemiarthroplasty.
[2018-06-20] MEDS ORDERED: EPHEDRINE SULFATE INJ 50 MG/1 ML AMPULE ONE ×2 (15:56→16:36)
[2018-06-20] MEDS ORDERED: GLYCOPYRROLATE 1 MG/5 ML SYRINGE ONE (16:03)
[2018-06-20] MEDS ORDERED: PHENYLEPHRINE HCL INJ/PF 10 MG/1 ML SDV ONE (16:03)
[2018-06-20] MEDS: BUDESONIDE NEB 0.5 MG/2 ML AMPUL NEB SCH (16:05)
--- NOTE | 2018-06-20 16:30 | EKG REPORT ---
SEVERITY:- BORDERLINE ECG - SINUS RHYTHM BORDERLINE T ABNORMALITIES, ANT-LAT LEADS : Confirmed by: Vito Garces MD 20-Jun-2018 16:29:25
[2018-06-20] MEDS ORDERED: VASOPRESSIN INJ 20 UNIT/1 ML VIAL ONE (17:01)
--- NOTE | 2018-06-20 18:23 | Operative Report ---
Operative Report DATE OF SURGERY: 06/20/18 PREOPERATIVE DIAGNOSIS: Displaced left femoral neck fracture POSTOPERATIVE DIAGNOSIS: Same OPERATION: Left total hip arthroplasty SURGEON: TRINIDAD HORTON ANESTHESIA: Spinal TISSUE REMOVED OR ALTERED: Femoral head COMPLICATIONS: None ESTIMATED BLOOD LOSS: 400 mL PROCEDURE: Procedure In Detail: Patient was seen and evaluated in the preoperative holding area. The left lower extremity was initialized and marked. Patient received 2g of Ancef IV for bacterial prophylaxis. Patient was taken back to the operative room where transferred to the operative table and placed under spinal anesthesia. Once they were adequately anesthetized patient was placed in the lateral position an axillary roll was placed in nonoperative left lower extremity was carefully padded.. A surgical team debriefing was performed ensuring all instrumentation was available, the surgical procedure was discussed with possible concerns reviewed. The extremity was prepped with chlor prep draped in a sterile fashion. A timeout was done identifying correct patient, procedure and lower extremity, everyone in attendance agree with this and verbalized no concerns. A posterior skin incision was made just posterior to the greater trochanter. Dissection was done down to the gluteus melia and iliotibial band fascia this was split in line with the skin incision. Any peripheral vasculature was carefully coagulated. A Charley retractor was placed after palpation of the sciatic nerve and the sciatic nerve was safely retracted from the wound throughout the entirety of the case. I then identified the external rotators with the use of a Bovie this was carefully elevated off along with underlying capsule from the neck in a T-shaped capsulotomy was made just superior to the piriformis. This was then tagged. The femoral neck was identified and freshening cut was made but the fracture was all way down to the lesser so there was very little neck left. I then used the corkscrew to remove the femoral head from the acetabulum which was then measured on the back table to be a 46 mm. This point we started reaming after removing the labral tissue and ligament and fovea. We placed our acetabular retractors anteriorly inferiorly and then used our reamer with the guide on. Started with a 44 reamer and reamed all way up to a 50 mm. We implanted a 50 mm cup and secured it with one screw. A standard liner with a 10 degree lip was then implanted and secured. I then turned my attention to femoral preparation. A box osteotome was first used to get laterally along the trochanter. I then used the lateralizing reamer to avoid medialization of the stem and ultimately varus malalignment. I then began broaching with a 0 broach and broached up to a 5 broach. I then utilized the calcar reamer reamed out the appropriate level. I then broached up to a 5 broach again which I got good press fit. I began trialing with a 0 neck length and finally ended up with +5 because had good stability through flexion, internal rotation and adduction. There is no instability with external rotation. Leg lengths were found to be compatible and equal to the other side. At this point the trial implants were removed. The wound was irrigated with normal saline. I then implanted my appropriate size stem the good peripheral fit and placement at my predetermined broach level. I then implanted the final head. The hip was reduced once again measures stability and good stability throughout all range of motion with no palpable impingement. Leg lengths were equivalent to the nonoperative side. I then want to get cindy irrigated the wound with normal saline. Utilizing a #5 FiberWire suture I secured the capsule posteriorly into the trochanter. I then irrigated once again with normal saline. The gluteus melia and tensor fascia elio was closed with #1 Vicryl in a [id number] interrupted fashion. I then injected Exparel in multiple locations throughout the subcutaneous tissues, hip wound and the fascia. I then closed the subcutaneous tissues with interrupted 2-0 Vicryl suture. The skin was closed with donald. Acticoat, 4 x 4 and a sterile OpSite dressing was then placed. Sponge counts, instrument counts and needle counts were correct. Patient was then awoken from anesthesia laid supine at which point her leg lengths were once again checked and found to be equal to the nonoperative extremity. Patient was then transferred to the operating stretcher and placed in an abduction pillow. The was no intraoperative crepitations patient tolerated she will was stable to PACU. Postoperative plan: Patient will be started on Lovenox for DVT prophylaxis. She will begin physical therapy on postop day #1. Implants: Accolade II Size 5 127, 50 mm cup with standard liner with a 10 degree lip, +5 Neck Length
[2018-06-20] MEDS: EPHEDRINE SULFATE INJ 50 MG/1 ML AMPULE ONE ×2 (18:26→18:31)
[2018-06-20] MEDS: ENOXAPARIN SODIUM INJ 40 MG/0.4 ML DISP.SYRIN SUBCUT SCH (18:29)
--- NOTE | 2018-06-20 18:58 | RADIOLOGY REPORT (SQ) ---
EXAM DESCRIPTION: HIP LEFT AP/LATERAL COMPLETED DATE/TIME: 06/20/2018 6:48 pm REASON FOR STUDY: Post Op Long Cassette in PACU COMPARISON: 06/19/2018 NUMBER OF VIEWS: Two views. TECHNIQUE: AP pelvis and additional frog-leg view of the left hip. LIMITATIONS: None. FINDINGS: MINERALIZATION: Osteopenia. LEFT HIP: Status post left total hip arthroplasty. RIGHT HIP: No fracture or dislocation. No worrisome bone lesions. PUBIS AND ISCHIUM: No fracture. PELVIS: No fracture. SACRUM: No fracture or dislocation. No worrisome bone lesions. LOWER LUMBAR SPINE: No fracture or dislocation. No worrisome bone lesions. SOFT TISSUES: Subcutaneous gas and skin donald are seen of the left hip. OTHER: A Marinelli bladder catheter projects within the soft tissues of the pelvis. IMPRESSION: Status post left total hip arthroplasty without evidence of complication. Marinelli bladder catheter. TECHNICAL DOCUMENTATION: JOB ID: [id number] All Rights Reserved Reading location - IP/workstation name: [email or web address]
[2018-06-20] MEDS ORDERED: BUPIVACAINE INJ/PF LIPOSOME/PF 266 MG/20 ML SDV ONE (18:59)
[2018-06-20] MEDS ORDERED: IPRATROPIUM/ALBUTEROL 0.5-2.5 MG/3 ML AMPUL NEB ONE (19:16)
[2018-06-20] MEDS ORDERED: DEXTROSE 5%-WATER 250 ML with NOREPINEPHRINE BITARTRATE 4 MG IV PRN ×2 (19:18)
--- NOTE | 2018-06-20 21:47 | EKG REPORT ---
SEVERITY:- BORDERLINE ECG - SINUS RHYTHM BORDERLINE T ABNORMALITIES, ANT-LAT LEADS : Confirmed by: Vito Garces MD 20-Jun-2018 21:46:28
[2018-06-20] MEDS: NOREPINEPHRINE BITARTRATE INJ/PF 4 MG/4 ML SDV IV ONE (22:26)
[2018-06-20] MEDS: RINGERS SOLUTION,LACTATED 1,000 ML IV PRN (22:27)
[2018-06-20] MEDS: QUETIAPINE FUMARATE 100 MG TABLET PO SCH (22:34)
[2018-06-20] MEDS: DEXTROSE 5%-WATER 250 ML with NOREPINEPHRINE BITARTRATE 4 MG IV PRN ×2 (22:39)
[2018-06-21] MEDS ORDERED: CEFAZOLIN 2 GM/D5W RTU 2 GM/50 ML RTUPB IV SCH
[2018-06-21] MEDS: IPRATROPIUM BROMIDE 0.02% NEB 0.5 MG/2.5 ML AMPUL NEB SCH ×3 (00:39→15:43)
[2018-06-21] MEDS: LEVALBUTEROL HCL NEB 1.25 MG/3 ML AMPUL NEB SCH ×3 (00:39→15:43)
[2018-06-21] MEDS: NOREPINEPHRINE BITARTRATE INJ/PF 4 MG/4 ML SDV IV ONE (02:46)
[2018-06-21] MEDS: RINGERS SOLUTION,LACTATED 1,000 ML IV PRN ×2 (02:48→09:04)
[2018-06-21] MEDS ORDERED: DEXTROSE 40% GEL 15 GM TUBE PO PRN (05:22)
[2018-06-21] MEDS ORDERED: DEXTROSE 40% GEL 15 GM TUBE X 2 PO PRN (05:22)
[2018-06-21] MEDS ORDERED: GLUCAGON,HUMAN RECOMB 1 MG INJ IM PRN (05:22)
[2018-06-21] MEDS ORDERED: DEXTROSE 50%-WATER SYRINGE 25 GM/50 ML DOSE IV PRN (05:22)
[2018-06-21] MEDS ORDERED: DEXTROSE 50%-WATER SYRINGE 12.5 GM/25 ML DOSE IV PRN (05:22)
[2018-06-21] MEDS: TRAMADOL HCL 50 MG TABLET PO PRN ×3 (05:26→17:58)
[2018-06-21 05:36] LABS: ABSOLUTE LYMPHOCYTES (AUTO) 1.2 10^3/uL (0.5-4.7); ABSOLUTE NEUT (AUTO) 7.7 10^3/uL (1.7-8.2); BASOPHILS % (AUTO) 0.2 % (0-2); EOSINOPHILS % (AUTO) 0.4 % (0-6); HEMATOCRIT 30.3 % (36.0-47.0); HEMOGLOBIN 10.3 g/dL (12.0-15.5); LYMPHOCYTES % (AUTO) 12.3 % (13-45); MEAN CORPUSCULAR HEMOGLOBIN 35.5 pg (27.0-33.4); MEAN CORPUSCULAR HGB CONC 33.9 g/dL (32.0-36.0); MEAN CORPUSCULAR VOLUME 105 fl (80-97); MONOCYTES % (AUTO) 10.1 % (3-13); PLATELET COUNT 123 10^3/uL (150-450); RED BLOOD COUNT 2.89 10^6/uL (3.72-5.28); RED CELL DISTRIBUTION WIDTH 13.6 % (11.5-14.0); TOTAL CELLS COUNTED % (AUTO) 100 %
[2018-06-21] MEDS: CHLORPROMAZINE HCL 10 MG TABLET PO SCH ×5 (07:25→22:20)
[2018-06-21] MEDS: DOCUSATE SODIUM 100 MG CAPSULE PO SCH ×3 (07:25→17:43)
[2018-06-21] MEDS: INSULIN LISPRO 100 UNIT/ML 3 ML VIAL SUBCUT PRN ×4 (07:33→22:39)
[2018-06-21] MEDS: BUDESONIDE NEB 0.5 MG/2 ML AMPUL NEB SCH ×2 (08:01→15:46)
[2018-06-21 08:21] LABS: ANION GAP 8 (5-19); BLOOD UREA NITROGEN 30 mg/dL (7-20); CALCIUM 7.3 mg/dL (8.4-10.2); CARBON DIOXIDE 18 mmol/L (22-30); CHLORIDE 111 mmol/L (98-107); GLUCOSE 154 mg/dL (75-110); POTASSIUM 5.4 mmol/L (3.6-5.0); SODIUM 136.5 mmol/L (137-145)
[2018-06-21] MEDS ORDERED: NORMAL SALINE 1000 ML 1,000 ML IV PRN (09:21)
[2018-06-21] MEDS: ENOXAPARIN SODIUM INJ 40 MG/0.4 ML DISP.SYRIN SUBCUT SCH (09:32)
[2018-06-21] MEDS: PANTOPRAZOLE SODIUM 40 MG VIAL IV SCH ×2 (09:32→22:19)
[2018-06-21] MEDS: MAGNESIUM SULFATE/D5W 1 GM/100 ML RTUPB IV SCH ×2 (09:52→13:11)
[2018-06-21 11:30] LABS: ANION GAP 7 (5-19); BLOOD UREA NITROGEN 30 mg/dL (7-20); CALCIUM 7.2 mg/dL (8.4-10.2); CARBON DIOXIDE 18 mmol/L (22-30); CHLORIDE 110 mmol/L (98-107); GLUCOSE 183 mg/dL (75-110); POTASSIUM 4.8 mmol/L (3.6-5.0); SODIUM 135.3 mmol/L (137-145)
[2018-06-21] MEDS ORDERED: LIDOCAINE 1% INJ-PF (10 MG/ML) 30 ML SDV ONE (11:41)
--- NOTE | 2018-06-21 12:06 | Operative Report ---
Nonrecallable Operative Report DATE OF SURGERY: 06/21/18 PREOPERATIVE DIAGNOSIS: Respiratory insufficiency POSTOPERATIVE DIAGNOSIS: Same OPERATION: 1. Placement of right subclavian central venous access catheter. 2. Interpretation a portable chest x-ray SURGEON: JONAS RYAN TISSUE REMOVED OR ALTERED: None COMPLICATIONS: None ESTIMATED BLOOD LOSS: Scant INTRAOPERATIVE FINDINGS: See below PROCEDURE: Informed consent was obtained. The patient was placed in Trendelenburg the right neck and chest wall were exposed, and prepped and draped in a sterile fashion. Surgical plan and surgical timeout discussed. The right subclavian area was anesthetized with 1% lidocaine without epinephrine. Using the variable frequency linear transducer, real time, a 18- gauge needle and wire were threaded into the right internal jugular vein. The tract was dilated up, the dilator removed, and the triple-lumen central venous access catheter was threaded into the right subclavian vein uneventfully to the hub. There was excellent aspiration and flush of saline through all 3 lumens. The catheter was affixed to the skin with a Biopatch and 2-0 silk suture; sterile dressing applied. The patient tolerated the procedure well. There were no complications. Portable upright chest x-ray demonstrated no pneumothorax, with tip of the catheter in the right atrium. Results of x-rays shared with nursing staff. May use central line.
--- NOTE | 2018-06-21 12:15 | RADIOLOGY REPORT (SQ) ---
EXAM DESCRIPTION: CHEST SINGLE VIEW COMPLETED DATE/TIME: 06/21/2018 11:58 am REASON FOR STUDY: [employer] COMPARISON: None. EXAM PARAMETERS: NUMBER OF VIEWS: One view. TECHNIQUE: Single frontal radiographic view of the chest acquired. RADIATION DOSE: NA LIMITATIONS: None. FINDINGS: LUNGS AND PLEURA: No opacities, masses or pneumothorax. No pleural effusion. MEDIASTINUM AND HILAR STRUCTURES: No masses. Contour normal. HEART AND VASCULAR STRUCTURES: Heart normal in size. Normal vasculature. BONES: No acute findings. HARDWARE: Port-A-Cath is identified with its tip projected the level of the superior vena cava. OTHER: No other significant finding. IMPRESSION: Port-A-Cath with its tip projected at the level of the superior vena cava. No pneumotho rax is seen. Other findings as noted above TECHNICAL DOCUMENTATION: JOB ID: [id number] [employer]- All Rights Reserved Reading location - IP/workstation name: [email or web address]
[2018-06-21] MEDS ORDERED: DEXTROSE 5%-WATER 1000 ML 1,000 ML with SODIUM BICARBONATE 150 MEQ IV PRN ×4 (12:34→12:35)
--- NOTE | 2018-06-21 13:54 | PDOC PROGRESS REPORT ---
Subjective Progress Note for:: 06/21/18 Subjective:: EDITH MONTAGUE is a 62 year old female who complains of a painful left hip since a fall last evening. He states that she was seated and when she stood to walk she noticed that her left foot was "asleep" causing her left leg to get out from underneath her and a subsequent fall to the floor where she landed on the left side of her body striking her hip and pelvic region as the point of first contact. She noted immediate pain in her left hip and had worse pain when she tried to get up and stand. She stayed in the same position for quite some time until her family members found her in the morning and convinced her that she needed to get up and get some help. She refused to stand or move and so they help to lift her to the car and brought her to the emergency room for evaluation. She indicates that the pain that she has is located in the left hip and is not radiating. The pain is described as a sharp grating pain, worse with any movement and lessened by rest/remaining still. At its worst the pain is a 10 out of 10 in severity and at rest the pain is a 0-1 out of 10. She has not had prior similar episodes and has not identified any additional aggravating or ameliorating factors for her hip pain. She has a past history of schizophrenia and diabetes and takes numerous medications. In the emergency room she was found to have significant renal failure with a creatinine of 2.58 and a BUN of 44. She was admitted to the hospitalist service for medical stabilization prior to surgical attention to her left hip. Dr. iHll will be consulted for orthopedic management. 06/20/18: Edith is doing very well today she slept well and she has been tolerating her IVs and the changes that were made to her medical regimen. She acknowledges that she has had good pain control and she denies new problems or symptoms. She has had no nausea, vomiting, chest pain, dyspnea or palpitations. Her cardiac enzymes have been consistently elevated without substantial change other than that attributed to dilution (due to IV rehydration) over the course of the serial evaluations. Her troponin was 4.48 initially and dropped to 3.1 over the 12-hour course. Her CK-MB was also significantly elevated at 14 and dropped to 8 over the 12-hour course. Again these are considered to be delusional changes as the patient's creatinine was initially 2.58 and dropped to 2.10. Her EKG's show a normal sinus rhythm without evidence of ectopy or cardiac ischemia or injury. Electrolytes are normal and her hemoglobin A1c is 6.2. With these findings and with her general improvement after hydration overnight she is judged to be medically stable for surgical intervention for her left hip fracture. Dr. Hill has been informed that the patient is adequately stable and ready for surgery in person as we extensively discussed her case and medical conditions. 06/21/18: Edith was moved to the ICU after her surgery due to prolonged post-operative/ post-anesthetic hypotension of uncertain etiology. Her blood pressure was definitely depressed and required pressor support with Levophed and continued hydration. Her blood pressure gradually improved and this morning her Levophed was finally discontinued. She is remained stable with no further hypotension since that time but she is being watched closely in the ICU for any recurrence. She is alert and oriented this morning and is happy to have had her surgery. She has moved her leg a little bit and it still hurts but not like it did before. She has been able to eat and drink well with no nausea, vomiting, diarrhea or abdominal pain and she has not been experiencing chest pain or palpitations. She is breathing well and has not been experiencing dyspnea, cough or pleuritic pain. We discussed the fact that she would need rehabilitation after she gets out of the hospital to continue her recovery and she is willing to go to a rehabilitation center for ongoing care. Staff was unable to obtain a peripheral IV site on the patient and after numerous tries a central line was placed with Dr. Farfan being consulted for that procedure. If her blood pressure remained stable throughout the remainder of the day with no need for restarting pressors she will be transferred to the floor tomorrow and possibly discharged on Thursday or . Reason For Visit: MODERATELY DISPLACED LEFT FEMORAL NECK FRACTURE Physical Exam Vital Signs: Temp Pulse Resp BP Pulse Ox 97.2 F 92 22 H 97/46 L 98 06/21/18 12:00 06/21/18 10:00 06/21/18 08:00 06/21/18 08:00 06/21/18 08:00 Intake & Output 06/19/18 06/20/18 06/21/18 23:59 23:59 23:59 Intake Total 1000 6998 1956 Output Total 3150 905 Balance 1000 3849 1051 Weight 69.8 kg 67.7 kg 74.7 kg General appearance: PRESENT: no acute distress, cooperative Head exam: PRESENT: atraumatic, normocephalic Eye exam: ABSENT: conjunctival injection, scleral icterus Ear exam: PRESENT: normal external ear exam. ABSENT: drainage Mouth exam: PRESENT: neck supple, tongue midline Neck exam: ABSENT: thyromegaly, tracheal deviation Respiratory exam: PRESENT: clear to auscultation yasmeen, symmetrical, unlabored Cardiovascular exam: PRESENT: RRR. ABSENT: clicks, gallop, rubs Pulses: PRESENT: normal radial pulses, normal dorsalis pedis pul Vascular exam: PRESENT: normal capillary refill. ABSENT: pallor GI/Abdominal exam: PRESENT: [place] bowel [place] - [address], soft Rectal exam: PRESENT: deferred Extremities exam: ABSENT: joint swelling, pedal edema Musculoskeletal exam: ABSENT: deformity, dislocation Neurological exam: PRESENT: alert, oriented to person, oriented to place, oriented to time, oriented to situation Psychiatric exam: PRESENT: appropriate affect, normal mood Skin exam: ABSENT: jaundice, rash, urticaria Results Laboratory Results: 06/21/18 05:20 06/21/18 10:36 06/21/18 06/21/18 06/21/18 05:20 05:20 07:49 WBC 10.0 RBC 2.89 L Hgb 10.3 L Hct 30.3 L MCV 105 H MCH 35.5 H MCHC 33.9 RDW 13.6 Plt Count 123 L Seg Neutrophils % 77.0 Lymphocytes % 12.3 L Monocytes % 10.1 Eosinophils % 0.4 Basophils % 0.2 Absolute Neutrophils 7.7 Absolute Lymphocytes 1.2 Absolute Monocytes 1.0 Absolute Eosinophils 0.0 Absolute Basophils 0.0 Sodium Cancelled 136.5 L Potassium Cancelled 5.4 H Chloride Cancelled 111 H Carbon Dioxide Cancelled 18 L Anion Gap Cancelled 8 BUN Cancelled 30 H Creatinine Cancelled 1.61 H Est GFR ( Amer) Cancelled 39 L Est GFR (Non-Af Amer) Cancelled 33 L Glucose Cancelled 154 H Calcium Cancelled 7.3 L Magnesium Cancelled 1.4 L 06/21/18 10:36 WBC RBC Hgb Hct MCV MCH MCHC RDW Plt Count Seg Neutrophils % Lymphocytes % Monocytes % Eosinophils % Basophils % Absolute Neutrophils Absolute Lymphocytes Absolute Monocytes Absolute Eosinophils Absolute Basophils Sodium 135.3 L Potassium 4.8 Chloride 110 H Carbon Dioxide 18 L Anion Gap 7 BUN 30 H Creatinine 1.59 H Est GFR ( Amer) 40 L Est GFR (Non-Af Amer) 33 L Glucose 183 H Calcium 7.2 L Magnesium 1.4 L 06/19/18 06/19/18 06/20/18 19:09 19:09 01:15 Creatine Kinase 220 H 282 H CK-MB (CK-2) 14.20 H Troponin I 4.480 06/20/18 06/20/18 06/20/18 01:15 07:30 07:30 Creatine Kinase 304 H CK-MB (CK-2) 10.60 H 8.60 H Troponin I 4.100 3.100 Impressions: Femur X-Ray 06/19/18 14:18 IMPRESSION: Moderately displaced fracture of the femoral neck. Knee X-Ray 06/19/18 14:18 IMPRESSION: No evidence of acute osseous injury. Hip X-Ray 06/20/18 18:27 IMPRESSION: Status post left total hip arthroplasty without evidence of complication. Marinelli bladder catheter. Chest X-Ray 06/21/18 11:45 IMPRESSION: Port-A-Cath with its tip projected at the level of the superior vena cava. No pneumothorax is seen. Other findings as noted above Assessment & Plan - Diagnosis (1) Fracture of femoral neck, left, closed Qualifiers: Encounter type: initial encounter Qualified Code(s): S72.002A - Fracture of unspecified part of neck of left femur, initial encounter for closed fracture Is this a current diagnosis for this admission?: Yes Plan: Dr. Hill has been consulted for management of her hip fracture. We will provide analgesia for her utilizing morphine with a sliding scale giving her 2 mg IV every 3 hours as needed pain 1-2/5, 3 mg IV every 2 hours as needed pain 3 -4/5, 4 mg IV every 1 hour as needed pain 5/5. We will also provide supportive cares and other symptomatic cares as needed. 06/20/18: Patient is medically cleared for surgical intervention concerning her moderately displaced left femoral neck (subcapital) fracture. 06/21/18: The patient had her hip surgical repair yesterday and it was performed under a spinal anesthetic with the complication of a postoperative/post anesthetic prolonged period of hypotension. This required the patient to be placed to the ICU for further care and blood pressure support utilizing Levophed. Surgical management of the patient's hip fracture will be continued by Dr. Hill. (2) Arterial hypotension Qualifiers: Hypotension type: unspecified hypotension type Qualified Code(s): I95.9 - Hypotension, unspecified Is this a current diagnosis for this admission?: Yes Plan: 06/21/18: Patient had not been hypotensive until after she received spinal anesthesia and surgery. She was noted to be hypotensive in the intraoperative and postoperative phases of her surgery. In the postoperative area her blood pressure dropped to the low 80s systolic and she was transferred to the ICU where she was started on Levophed to support her blood pressure. This was continued overnight and her blood pressure responded well and by morning Levophed was able to be withdrawn with her blood pressure continuing to be greater than 90 systolic thereafter. She will be observed for the rest of today and tonight and could be transferred back to the floor from the ICU tomorrow if her pressure stays in a normotensive range. (3) Acute renal failure (ARF) Qualifiers: Acute renal failure type: unspecified Qualified Code(s): N17.9 - Acute kidney failure, unspecified Is this a current diagnosis for this admission?: Yes Plan: Run his renal failure is of uncertain duration but we will treat this by addressing her medications and discontinuing the lisinopril she has been taking will also control her blood sugar as well as possible and evaluate her diabetic control with a hemoglobin A1c in the morning. Additionally will avoid any medications that may worsen renal failure and we will hydrate her and reevaluate our therapy in the morning. 06/20/18: Patient's renal failure significantly improved with hydration as her creatinine fell from 2.58 down to 2.10. She will be continued on IV fluids and her current regimen. We will follow her daily lab work and reassess therapy on a regular basis. It is most probable that the patient has an underlying chronic renal insufficiency. 06/21/18: Patient's renal failure is improved significantly more with her creatinine falling to the 1.6 range on today's labs. Her BUN has also fallen concomitantly with the creatinine. We will continue to observe her daily lab work and continue appropriate hydration. Her episode of hypotension after surgery does not appear to have caused further kidney injury at this time however ongoing evaluation and observation is required. (4) Hyperlipidemia Qualifiers: Hyperlipidemia type: unspecified Qualified Code(s): E78.5 - Hyperlipidemia , unspecified Is this a current diagnosis for this admission?: Yes Plan: Edith will be continued on her formulary substitution for Crestor during her hospital course. (5) Schizophrenia Qualifiers: Schizophrenia type: unspecified Qualified Code(s): F20.9 - Schizophrenia, unspecified Is this a current diagnosis for this admission?: Yes Plan: Edith has chronic schizophrenia and will be maintained on her usual medications or reasonable substitutions per our formulary. (6) Nicotine dependence with current use Is this a current diagnosis for this admission?: Yes Plan: Patient will be given the opportunity to use a nicotine patch as needed for her nicotine withdrawal symptoms should they occur. 06/21/18: Edith's family members feel that her positive Thorazine is considerably better than her response was to thiothixene and have inquired about the potential for her being discharged on Thorazine instead of thiothixene when that time comes. I have instructed them that I will make this note on the chart for the next physician to make up his own mind as to whether he wishes to make that therapeutic substitution. I did let the family know that I could not think of any reason why she should not take Thorazine versus thiothixene as the drugs are of the same class however they do have a slightly different side effect profile. - Time Time Spent with patient: 25-34 minutes Medications reviewed and adjusted accordingly: Yes Anticipated discharge: SNF Within: within 72 hours
[2018-06-21] MEDS: NORMAL SALINE 1000 ML 1,000 ML IV PRN ×3 (15:44→23:34)
[2018-06-21 16:32] LABS: ANION GAP 7 (5-19); BLOOD UREA NITROGEN 26 mg/dL (7-20); CARBON DIOXIDE 17 mmol/L (22-30); CHLORIDE 110 mmol/L (98-107); GLUCOSE 162 mg/dL (75-110); SODIUM 133.9 mmol/L (137-145)
[2018-06-21] MEDS: DEXTROSE 5%-WATER 250 ML with NOREPINEPHRINE BITARTRATE 4 MG IV PRN ×2 (17:51)
--- NOTE | 2018-06-21 19:08 | PDOC PROGRESS REPORT ---
Subjective Progress Note for:: 06/21/18 Subjective:: Patient is alert and awake. States her pain is present but controlled with tramadol. Unable to take narcotics due to hypotension. Reason For Visit: MODERATELY DISPLACED LEFT FEMORAL NECK FRACTURE Physical Exam Vital Signs: Temp Pulse Resp BP Pulse Ox 36.2 C 95 20 97/46 L 96 06/21/18 12:00 06/21/18 15:46 06/21/18 15:46 06/21/18 08:00 06/21/18 15:46 Intake & Output 06/20/18 06/21/18 06/22/18 06:59 06:59 06:59 Intake Total 2898 5879 1279 Output Total 3825 480 Balance 2898 2054 799 Weight 67.7 kg 74.7 kg 74.7 kg Adult Front & Back Image: 1 - Dressing is dry clean and intact. Swelling is appropriate with no ecchymosis. She has soft calves with intact EHL FHL and tibialis anterior. Good sensation to light touch with good capillary refill. Limb lengths are grossly equal. Abduction frame is in good position. Results Laboratory Results: 06/21/18 05:20 06/21/18 16:00 06/21/18 06/21/18 06/21/18 05:20 05:20 07:49 WBC 10.0 RBC 2.89 L Hgb 10.3 L Hct 30.3 L MCV 105 H MCH 35.5 H MCHC 33.9 RDW 13.6 Plt Count 123 L Seg Neutrophils % 77.0 Lymphocytes % 12.3 L Monocytes % 10.1 Eosinophils % 0.4 Basophils % 0.2 Absolute Neutrophils 7.7 Absolute Lymphocytes 1.2 Absolute Monocytes 1.0 Absolute Eosinophils 0.0 Absolute Basophils 0.0 Sodium Cancelled 136.5 L Potassium Cancelled 5.4 H Chloride Cancelled 111 H Carbon Dioxide Cancelled 18 L Anion Gap Cancelled 8 BUN Cancelled 30 H Creatinine Cancelled 1.61 H Est GFR ( Amer) Cancelled 39 L Est GFR (Non-Af Amer) Cancelled 33 L Glucose Cancelled 154 H Calcium Cancelled 7.3 L Magnesium Cancelled 1.4 L Albumin 06/21/18 06/21/18 06/21/18 10:36 16:00 16:49 WBC RBC Hgb Hct MCV MCH MCHC RDW Plt Count Seg Neutrophils % Lymphocytes % Monocytes % Eosinophils % Basophils % Absolute Neutrophils Absolute Lymphocytes Absolute Monocytes Absolute Eosinophils Absolute Basophils Sodium 135.3 L 133.9 L Potassium 4.8 4.0 Chloride 110 H 110 H Carbon Dioxide 18 L 17 L Anion Gap 7 7 BUN 30 H 26 H Creatinine 1.59 H 1.55 H Est GFR ( Amer) 40 L 41 L Est GFR (Non-Af Amer) 33 L 34 L Glucose 183 H 162 H Calcium 7.2 L 7.0 L* Magnesium 1.4 L 2.2 Albumin 2.3 L 06/19/18 06/19/18 06/20/18 19:09 19:09 01:15 Creatine Kinase 220 H 282 H CK-MB (CK-2) 14.20 H Troponin I 4.480 06/20/18 06/20/18 06/20/18 01:15 07:30 07:30 Creatine Kinase 304 H CK-MB (CK-2) 10.60 H 8.60 H Troponin I 4.100 3.100 Impressions: Femur X-Ray 06/19/18 14:18 IMPRESSION: Moderately displaced fracture of the femoral neck. Knee X-Ray 06/19/18 14:18 IMPRESSION: No evidence of acute osseous injury. Hip X-Ray 06/20/18 18:27 IMPRESSION: Status post left total hip arthroplasty without evidence of complication. Marinelli bladder catheter. Chest X-Ray 06/21/18 11:45 IMPRESSION: Port-A-Cath with its tip projected at the level of the superior vena cava. No pneumothorax is seen. Other findings as noted above Status: Image reviewed by me Assessment & Plan - Diagnosis (1) Fracture of femoral neck, left, closed Qualifiers: Encounter type: initial encounter Qualified Code(s): S72.002A - Fracture of unspecified part of neck of left femur, initial encounter for closed fracture Is this a current diagnosis for this admission?: Yes Plan: Patient is 62-year-old female POD #1 from left total hip arthroplasty due to 2 displaced femoral neck fracture. Will refer to ICU for management of her hypotension. H&H will be monitored although today was 06/29 and during surgery last was normal. Continue physical therapy Continue pain control Continue DVT prophylaxis
[2018-06-21] MEDS: QUETIAPINE FUMARATE 100 MG TABLET PO SCH (22:20)
[2018-06-21 23:09] LABS: ANION GAP 7 (5-19); BLOOD UREA NITROGEN 21 mg/dL (7-20); CARBON DIOXIDE 16 mmol/L (22-30); CHLORIDE 112 mmol/L (98-107); GLUCOSE 156 mg/dL (75-110)
[2018-06-21 23:19] LABS: CALCIUM 6.8 mg/dL (8.4-10.2)
[2018-06-22] MEDS: LEVALBUTEROL HCL NEB 1.25 MG/3 ML AMPUL NEB SCH ×3 (00:26→15:54)
[2018-06-22] MEDS: IPRATROPIUM BROMIDE 0.02% NEB 0.5 MG/2.5 ML AMPUL NEB SCH ×3 (00:27→15:54)
[2018-06-22] MEDS: NORMAL SALINE 1000 ML 1,000 ML IV PRN ×2 (04:06→23:14)
[2018-06-22] MEDS: TRAMADOL HCL 50 MG TABLET PO PRN (04:21)
[2018-06-22 06:20] LABS: ABSOLUTE EOSINOPHILS # (AUTO) 0.1 10^3/uL (0.0-0.6); ABSOLUTE LYMPHOCYTES (AUTO) 1.2 10^3/uL (0.5-4.7); ABSOLUTE MONOCYTES (AUTO) 0.9 10^3/uL (0.1-1.4); ABSOLUTE NEUT (AUTO) 5.3 10^3/uL (1.7-8.2); BASOPHILS % (AUTO) 0.2 % (0-2); EOSINOPHILS % (AUTO) 0.7 % (0-6); HEMATOCRIT 20.3 % (36.0-47.0); LYMPHOCYTES % (AUTO) 15.5 % (13-45); MEAN CORPUSCULAR HEMOGLOBIN 36.1 pg (27.0-33.4); MEAN CORPUSCULAR HGB CONC 34.7 g/dL (32.0-36.0); MEAN CORPUSCULAR VOLUME 104 fl (80-97); MONOCYTES % (AUTO) 12.5 % (3-13); PLATELET COUNT 103 10^3/uL (150-450); RED BLOOD COUNT 1.95 10^6/uL (3.72-5.28); RED CELL DISTRIBUTION WIDTH 12.9 % (11.5-14.0); SEGMENTED NEUTROPHILS % (AUTO) 71.1 % (42-78); TOTAL CELLS COUNTED % (AUTO) 100 %; WHITE BLOOD COUNT 7.5 10^3/uL (4.0-10.5)
[2018-06-22 06:29] LABS: ANION GAP 6 (5-19); BLOOD UREA NITROGEN 18 mg/dL (7-20); CARBON DIOXIDE 16 mmol/L (22-30); CHLORIDE 115 mmol/L (98-107); GLUCOSE 141 mg/dL (75-110); SODIUM 137.2 mmol/L (137-145)
[2018-06-22 06:50] LABS: CALCIUM 6.3 mg/dL (8.4-10.2)
[2018-06-22 07:02] LABS: HEMOGLOBIN 7.1 g/dL (12.0-15.5)
[2018-06-22] MEDS: INSULIN LISPRO 100 UNIT/ML 3 ML VIAL SUBCUT PRN ×3 (07:47→20:54)
[2018-06-22] MEDS ORDERED: CALCIUM GLUCONATE 1,000 MG in DEXTROSE 5%-WATER 50 ML IV ONE (08:06)
[2018-06-22] MEDS: BUDESONIDE NEB 0.5 MG/2 ML AMPUL NEB SCH ×2 (08:50→15:54)
[2018-06-22] MEDS: PANTOPRAZOLE SODIUM 40 MG VIAL IV SCH (09:12)
[2018-06-22] MEDS: DOCUSATE SODIUM 100 MG CAPSULE PO SCH ×2 (09:12→17:28)
[2018-06-22] MEDS ORDERED: FUROSEMIDE INJ/PF 20 MG/2 ML SDV IV PRN (09:15)
[2018-06-22] MEDS: CHLORPROMAZINE HCL 10 MG TABLET PO SCH ×4 (09:26→21:02)
[2018-06-22] MEDS ORDERED: CALCIUM GLUCONATE 1000 MG/10 ML INJ IV ONE (09:30)
--- NOTE | 2018-06-22 11:37 | PDOC PROGRESS REPORT ---
Subjective Progress Note for:: 06/22/18 Subjective:: The patient is feeling much improved this morning. She does complain of a cough. She just finished a nebulizer treatment. She still feels weak and it was noted that her hemoglobin has continued to decline. She will be receiving 2 units of packed red blood cells today. Her blood pressure is improving as well. Reason For Visit: MODERATELY DISPLACED LEFT FEMORAL NECK FRACTURE Physical Exam Vital Signs: Temp Pulse Resp BP Pulse Ox 98.4 F 102 H 29 H 124/56 L 94 06/22/18 11:06 06/22/18 11:06 06/22/18 11:06 06/22/18 11:06 06/22/18 11:06 Intake & Output 06/21/18 06/22/18 06/23/18 06:59 06:59 06:59 Intake Total 5879 4454 350 Output Total 3825 2805 530 Balance 2054 1649 -180 Weight 74.7 kg 77.4 kg General appearance: PRESENT: no acute distress, cooperative, well-developed, well-nourished Head exam: PRESENT: atraumatic, normocephalic Eye exam: PRESENT: conjunctiva pale, EOMI. ABSENT: scleral icterus Ear exam: PRESENT: normal external ear exam Mouth exam: PRESENT: dry mucosa Neck exam: PRESENT: full ROM. ABSENT: carotid bruit, JVD, lymphadenopathy Respiratory exam: PRESENT: clear to auscultation yasmeen, symmetrical. ABSENT: rales, rhonchi, wheezes Cardiovascular exam: PRESENT: RRR, +S1, +S2, systolic murmur, other - 2/6 systolic murmur. Pulses: PRESENT: +1 pedal pulses bilateral GI/Abdominal exam: PRESENT: normal bowel sounds, soft. ABSENT: distended, guarding, mass, organolmegaly, rebound, tenderness Rectal exam: PRESENT: deferred Extremities exam: ABSENT: calf tenderness, pedal edema Musculoskeletal exam: PRESENT: normal inspection, other - Recent left femoral neck fracture repair Neurological exam: PRESENT: alert, oriented to person, oriented to place, oriented to time, oriented to situation, CN II-XII grossly intact Psychiatric exam: PRESENT: appropriate affect Skin exam: PRESENT: dry, intact, warm. ABSENT: cyanosis, rash Results Laboratory Results: 06/22/18 06:00 06/22/18 06:00 06/21/18 06/21/18 06/21/18 10:36 16:00 16:49 WBC RBC Hgb Hct MCV MCH MCHC RDW Plt Count Seg Neutrophils % Lymphocytes % Monocytes % Eosinophils % Basophils % Absolute Neutrophils Absolute Lymphocytes Absolute Monocytes Absolute Eosinophils Absolute Basophils Sodium 135.3 L 133.9 L Potassium 4.8 4.0 Chloride 110 H 110 H Carbon Dioxide 18 L 17 L Anion Gap 7 7 BUN 30 H 26 H Creatinine 1.59 H 1.55 H Est GFR ( Amer) 40 L 41 L Est GFR (Non-Af Amer) 33 L 34 L Glucose 183 H 162 H Calcium 7.2 L 7.0 L* Magnesium 1.4 L 2.2 Albumin 2.3 L Blood Type Antibody Screen 06/21/18 06/21/18 06/22/18 22:45 22:45 06:00 WBC RBC Hgb Hct MCV MCH MCHC RDW Plt Count Seg Neutrophils % Lymphocytes % Monocytes % Eosinophils % Basophils % Absolute Neutrophils Absolute Lymphocytes Absolute Monocytes Absolute Eosinophils Absolute Basophils Sodium 135.0 L 137.2 Potassium 4.0 4.0 Chloride 112 H 115 H Carbon Dioxide 16 L 16 L Anion Gap 7 6 BUN 21 H 18 Creatinine 1.44 H 1.26 H Est GFR ( Amer) 45 L 52 L Est GFR (Non-Af Amer) 37 L 43 L Glucose 156 H 141 H Calcium 6.8 L* 6.3 L* Magnesium 2.1 1.9 Albumin 2.2 L Blood Type Antibody Screen 06/22/18 06/22/18 06/22/18 06:00 06:00 07:30 WBC 7.5 RBC 1.95 L Hgb 7.1 L D Hct 20.3 L MCV 104 H MCH 36.1 H MCHC 34.7 RDW 12.9 Plt Count 103 L Seg Neutrophils % 71.1 Lymphocytes % 15.5 Monocytes % 12.5 Eosinophils % 0.7 Basophils % 0.2 Absolute Neutrophils 5.3 Absolute Lymphocytes 1.2 Absolute Monocytes 0.9 Absolute Eosinophils 0.1 Absolute Basophils 0.0 Sodium Potassium Chloride Carbon Dioxide Anion Gap BUN Creatinine Est GFR ( Amer) Est GFR (Non-Af Amer) Glucose Calcium Magnesium Albumin 1.9 L Blood Type O POSITIVE Antibody Screen NEGATIVE 06/19/18 06/19/18 06/20/18 19:09 19:09 01:15 Creatine Kinase 220 H 282 H CK-MB (CK-2) 14.20 H Troponin I 4.480 06/20/18 06/20/18 06/20/18 01:15 07:30 07:30 Creatine Kinase 304 H CK-MB (CK-2) 10.60 H 8.60 H Troponin I 4.100 3.100 Impressions: Femur X-Ray 06/19/18 14:18 IMPRESSION: Moderately displaced fracture of the femoral neck. Knee X-Ray 06/19/18 14:18 IMPRESSION: No evidence of acute osseous injury. Hip X-Ray 06/20/18 18:27 IMPRESSION: Status post left total hip arthroplasty without evidence of complication. Marinelli bladder catheter. Chest X-Ray 06/21/18 11:45 IMPRESSION: Port-A-Cath with its tip projected at the level of the superior vena cava. No pneumothorax is seen. Other findings as noted above Assessment & Plan - Diagnosis (1) Arterial hypotension Qualifiers: Hypotension type: unspecified hypotension type Qualified Code(s): I95.9 - Hypotension, unspecified Is this a current diagnosis for this admission?: Yes Plan: The patient's hypotension etiology is unclear but it was post anesthesia. She continues to taper off of her levo fed. Her IV fluid was decreased to 150 mL/ h. Her blood pressure should also improve with the administration of 2 units of packed red blood cells. She denies any lightheadedness or dizziness and this certainly will be reassessed when she is able to increase her activity. We will consider transfer to the floor once she is off of her Levophed. (2) Acute renal failure (ARF) Qualifiers: Acute renal failure type: unspecified Qualified Code(s): N17.9 - Acute kidney failure, unspecified Is this a current diagnosis for this admission?: Yes Plan: With her large volume of IV fluid as well as today's transfusion, the patient's serum creatinine continues to improve. Her creatinine today is down to 1.26 with an estimated GFR of 43. (3) Fracture of femoral neck, left, closed Qualifiers: Encounter type: initial encounter Qualified Code(s): S72.002A - Fracture of unspecified part of neck of left femur, initial encounter for closed fracture Is this a current diagnosis for this admission?: Yes Plan: This was surgically repaired on June 20. Orthopedic surgery is following the patient. She remains on Lovenox prophylaxis dosing. (4) Acute anemia Is this a current diagnosis for this admission?: Yes Plan: The patient has developed acute anemia. It is likely a combination of aggressive IV hydration with dilution and her recent surgery. There was no reported excessive blood loss. She will receive 2 units of packed red blood cells today with 20 mg of furosemide between the units. She will have blood work within 2 hours of the completion of the second unit of packed cells as well as a CBC tomorrow. (5) Hyperlipidemia Qualifiers: Hyperlipidemia type: unspecified Qualified Code(s): E78.5 - Hyperlipidemia , unspecified Is this a current diagnosis for this admission?: Yes Plan: Continue statin therapy for the duration of her stay. (6) Schizophrenia Qualifiers: Schizophrenia type: unspecified Qualified Code(s): F20.9 - Schizophrenia, unspecified Is this a current diagnosis for this admission?: Yes Plan: The patient was previously on thiothixene for her chronic schizophrenia. During her inpatient stay she has been on Thorazine as well as Seroquel 100 mg at bedtime. Her family feels that she is improved on this regimen. Consideration to continue this regimen as an outpatient will be given. (7) Nicotine dependence with current use Is this a current diagnosis for this admission?: Yes Plan: The patient continues to use the nicotine patch to help prevent withdrawal symptoms.
[2018-06-22] MEDS: ENOXAPARIN SODIUM INJ 40 MG/0.4 ML DISP.SYRIN SUBCUT SCH (13:57)
[2018-06-22 16:35] LABS: ABSOLUTE LYMPHOCYTES (AUTO) 1.3 10^3/uL (0.5-4.7); ABSOLUTE MONOCYTES (AUTO) 0.9 10^3/uL (0.1-1.4); ABSOLUTE NEUT (AUTO) 7.9 10^3/uL (1.7-8.2); BASOPHILS % (AUTO) 0.1 % (0-2); EOSINOPHILS % (AUTO) 0.5 % (0-6); HEMATOCRIT 29.8 % (36.0-47.0); LYMPHOCYTES % (AUTO) 12.7 % (13-45); MEAN CORPUSCULAR HEMOGLOBIN 34.2 pg (27.0-33.4); MEAN CORPUSCULAR HGB CONC 35.3 g/dL (32.0-36.0); MONOCYTES % (AUTO) 8.9 % (3-13); PLATELET COUNT 123 10^3/uL (150-450); RED BLOOD COUNT 3.08 10^6/uL (3.72-5.28); RED CELL DISTRIBUTION WIDTH 16.3 % (11.5-14.0); SEGMENTED NEUTROPHILS % (AUTO) 77.8 % (42-78); TOTAL CELLS COUNTED % (AUTO) 100 %; WHITE BLOOD COUNT 10.2 10^3/uL (4.0-10.5)
[2018-06-22 16:36] LABS: HEMOGLOBIN 10.5 g/dL (12.0-15.5); MEAN CORPUSCULAR VOLUME 97 fl (80-97)
[2018-06-22] MEDS: ACETAMINOPHEN 325 MG TABLET PO PRN (18:53)
[2018-06-22] MEDS: QUETIAPINE FUMARATE 100 MG TABLET PO SCH (21:02)
[2018-06-23] MEDS: LEVALBUTEROL HCL NEB 1.25 MG/3 ML AMPUL NEB SCH ×3 (00:33→16:54)
[2018-06-23] MEDS: IPRATROPIUM BROMIDE 0.02% NEB 0.5 MG/2.5 ML AMPUL NEB SCH ×3 (00:33→16:54)
[2018-06-23] MEDS: NORMAL SALINE 1000 ML 1,000 ML IV PRN ×2 (05:00→13:02)
[2018-06-23 05:11] LABS: HEMATOCRIT 27.1 % (36.0-47.0); HEMOGLOBIN 9.6 g/dL (12.0-15.5); MEAN CORPUSCULAR HEMOGLOBIN 34.2 pg (27.0-33.4); MEAN CORPUSCULAR HGB CONC 35.3 g/dL (32.0-36.0); MEAN CORPUSCULAR VOLUME 97 fl (80-97); PLATELET COUNT 132 10^3/uL (150-450); RED BLOOD COUNT 2.79 10^6/uL (3.72-5.28); RED CELL DISTRIBUTION WIDTH 16.4 % (11.5-14.0)
[2018-06-23 05:28] LABS: ANION GAP 7 (5-19); BLOOD UREA NITROGEN 18 mg/dL (7-20); CALCIUM 7.3 mg/dL (8.4-10.2); CARBON DIOXIDE 17 mmol/L (22-30); CHLORIDE 117 mmol/L (98-107); GLUCOSE 130 mg/dL (75-110); POTASSIUM 3.7 mmol/L (3.6-5.0); SODIUM 140.6 mmol/L (137-145)
[2018-06-23] MEDS: BUDESONIDE NEB 0.5 MG/2 ML AMPUL NEB SCH ×2 (08:30→16:55)
[2018-06-23] MEDS: DOCUSATE SODIUM 100 MG CAPSULE PO SCH ×2 (09:37→17:22)
[2018-06-23] MEDS: CHLORPROMAZINE HCL 10 MG TABLET PO SCH ×4 (09:38→21:20)
[2018-06-23] MEDS: ENOXAPARIN SODIUM INJ 40 MG/0.4 ML DISP.SYRIN SUBCUT SCH (09:38)
[2018-06-23] MEDS: INSULIN LISPRO 100 UNIT/ML 3 ML VIAL SUBCUT PRN ×3 (11:14→21:29)
[2018-06-23] MEDS: POLYETHYLENE GLYCOL 3350 POWDER 17 GM/1 PACKET PO SCH (17:22)
--- NOTE | 2018-06-23 17:51 | PDOC PROGRESS REPORT ---
Subjective Progress Note for:: 06/23/18 Subjective:: Again the patient reports that she is feeling better today. She notes that each day she is feeling stronger. She was out of bed with physical therapy earlier today. She reports no difficulty with her breathing and pain consistent with her hip fracture. She is now off of intravenous pressors and maintaining reasonable blood pressure. Reason For Visit: MODERATELY DISPLACED LEFT FEMORAL NECK FRACTURE Physical Exam Vital Signs: Temp Pulse Resp BP Pulse Ox 99.5 F 117 H 24 H 120/65 97 06/23/18 12:31 06/23/18 16:55 06/23/18 16:55 06/23/18 14:03 06/23/18 16:55 Intake & Output 06/22/18 06/23/18 06/24/18 06:59 06:59 06:59 Intake Total 4454 2565 1688 Output Total 2805 4595 1375 Balance 1649 -2029 313 Weight 77.4 kg 77.2 kg General appearance: PRESENT: no acute distress, cooperative, well-developed, well-nourished Head exam: PRESENT: atraumatic, normocephalic Eye exam: PRESENT: conjunctiva pale, EOMI. ABSENT: scleral icterus Ear exam: PRESENT: normal external ear exam Mouth exam: PRESENT: dry mucosa Neck exam: PRESENT: full ROM. ABSENT: carotid bruit, JVD, tenderness Respiratory exam: PRESENT: clear to auscultation yasmeen, symmetrical. ABSENT: accessory muscle use, chest wall tenderness, rales, rhonchi, wheezes Cardiovascular exam: PRESENT: RRR, systolic murmur Pulses: PRESENT: normal radial pulses, normal dorsalis pedis pul GI/Abdominal exam: PRESENT: normal bowel sounds, soft. ABSENT: tenderness Rectal exam: PRESENT: deferred Extremities exam: ABSENT: calf tenderness, pedal edema, tenderness Musculoskeletal exam: PRESENT: normal inspection Neurological exam: PRESENT: alert, awake, oriented to person, oriented to place , CN II-XII grossly intact Psychiatric exam: PRESENT: appropriate affect, normal mood Skin exam: PRESENT: dry, intact, warm. ABSENT: cyanosis, rash Results Laboratory Results: 06/23/18 05:00 06/23/18 05:00 06/23/18 06/23/18 05:00 05:00 WBC 10.0 RBC 2.79 L Hgb 9.6 L Hct 27.1 L MCV 97 MCH 34.2 H MCHC 35.3 RDW 16.4 H Plt Count 132 L Sodium 140.6 Potassium 3.7 Chloride 117 H Carbon Dioxide 17 L Anion Gap 7 BUN 18 Creatinine 1.45 H Est GFR ( Amer) 44 L Est GFR (Non-Af Amer) 37 L Glucose 130 H Calcium 7.3 L 06/19/18 06/19/18 06/20/18 19:09 19:09 01:15 Creatine Kinase 220 H 282 H CK-MB (CK-2) 14.20 H Troponin I 4.480 06/20/18 06/20/18 06/20/18 01:15 07:30 07:30 Creatine Kinase 304 H CK-MB (CK-2) 10.60 H 8.60 H Troponin I 4.100 3.100 Impressions: Femur X-Ray 06/19/18 14:18 IMPRESSION: Moderately displaced fracture of the femoral neck. Knee X-Ray 06/19/18 14:18 IMPRESSION: No evidence of acute osseous injury. Hip X-Ray 06/20/18 18:27 IMPRESSION: Status post left total hip arthroplasty without evidence of complication. Marinelli bladder catheter. Chest X-Ray 06/21/18 11:45 IMPRESSION: Port-A-Cath with its tip projected at the level of the superior vena cava. No pneumothorax is seen. Other findings as noted above Assessment & Plan - Diagnosis (1) Arterial hypotension Qualifiers: Hypotension type: unspecified hypotension type Qualified Code(s): I95.9 - Hypotension, unspecified Is this a current diagnosis for this admission?: Yes Plan: The patient is now off of intravenous pressors and maintaining reasonable blood pressure. At this point she is stable enough to transition to IM. We will continue to monitor her her blood pressures while adjusting her medications. At this point the patient is stable enough to transfer to [facility]. (2) Acute renal failure (ARF) Qualifiers: Acute renal failure type: unspecified Qualified Code(s): N17.9 - Acute kidney failure, unspecified Is this a current diagnosis for this admission?: Yes Plan: With her large volume of IV fluid as well as today's transfusion, the patient's serum creatinine continues to improve. Her creatinine today is down to 1.26 with an estimated GFR of 43. 06/23/18 the patient serum creatinine increased slightly today. If her blood pressure continues to be stable or improved we will consider adding back her previous medications while monitoring her renal function. If her appetite is poor we may need to supplement her with additional IV fluids. (3) Fracture of femoral neck, left, closed Qualifiers: Encounter type: initial encounter Qualified Code(s): S72.002A - Fracture of unspecified part of neck of left femur, initial encounter for closed fracture Is this a current diagnosis for this admission?: Yes Plan: This was surgically repaired on June 20. She remains on Lovenox prophylaxis dosing. Physical therapy is working with the patient. (4) Acute anemia Is this a current diagnosis for this admission?: Yes Plan: The patient's hemoglobin is down to 9.6 today. Immediately post transfusion her hemoglobin was greater than 10. I will repeat a CBC tomorrow to see if she is now stable. Contributing factors are likely her surgery, volume and her acute kidney injury. (5) Hyperlipidemia Qualifiers: Hyperlipidemia type: unspecified Qualified Code(s): E78.5 - Hyperlipidemia , unspecified Is this a current diagnosis for this admission?: Yes Plan: Continue statin therapy for the duration of her stay. We will utilize atorvastatin [address] of her Crestor. (6) Schizophrenia Qualifiers: Schizophrenia type: unspecified Qualified Code(s): F20.9 - Schizophrenia, unspecified Is this a current diagnosis for this admission?: Yes Plan: The patient was previously on thiothixene for her chronic schizophrenia. During her inpatient stay she has been on Thorazine as well as Seroquel 100 mg at bedtime. Her family feels that she is improved on this regimen. Consideration to continue this regimen as an outpatient will be given. 06/23/18 the patient continues to be stable therefore we will continue the Thorazine and Seroquel. (7) Nicotine dependence with current use Is this a current diagnosis for this admission?: Yes Plan: The patient continues to use the nicotine patch to help prevent withdrawal symptoms. - Time Time Spent with patient: 25-34 minutes Medications reviewed and adjusted accordingly: Yes
--- NOTE | 2018-06-23 19:35 | PDOC PROGRESS REPORT ---
Subjective Progress Note for:: 06/23/18 Subjective:: Patient eating at bedside. Able to get on the commode. Off of vasopressors and will be transferred to [facility] Reason For Visit: MODERATELY DISPLACED LEFT FEMORAL NECK FRACTURE Physical Exam Vital Signs: Temp Pulse Resp BP Pulse Ox 37.5 C 117 H 29 H 120/65 94 06/23/18 12:31 06/23/18 16:55 06/23/18 18:00 06/23/18 14:03 06/23/18 18:00 Intake & Output 06/22/18 06/23/18 06/24/18 06:59 06:59 06:59 Intake Total 4458 8629 1682 Output Total 1304 9252 2274 Balance 2388 -9443 -304 Weight 77.4 kg 77.2 kg General appearance: PRESENT: no acute distress Adult Front & Back Image: 1 - Dressing with mild serous drainage. No erythema. Limb lengths are grossly equal. Patient wearing abduction pillow as indicated. Neurovascular intact distally Results Laboratory Results: 06/23/18 05:00 06/23/18 05:00 06/23/18 06/23/18 05:00 05:00 WBC 10.0 RBC 2.79 L Hgb 9.6 L Hct 27.1 L MCV 97 MCH 34.2 H MCHC 35.3 RDW 16.4 H Plt Count 132 L Sodium 140.6 Potassium 3.7 Chloride 117 H Carbon Dioxide 17 L Anion Gap 7 BUN 18 Creatinine 1.45 H Est GFR ( Amer) 44 L Est GFR (Non-Af Amer) 37 L Glucose 130 H Calcium 7.3 L 06/19/18 06/19/18 06/20/18 19:09 19:09 01:15 Creatine Kinase 220 H 282 H CK-MB (CK-2) 14.20 H Troponin I 4.480 06/20/18 06/20/18 06/20/18 01:15 07:30 07:30 Creatine Kinase 304 H CK-MB (CK-2) 10.60 H 8.60 H Troponin I 4.100 3.100 Impressions: Femur X-Ray 06/19/18 14:18 IMPRESSION: Moderately displaced fracture of the femoral neck. Knee X-Ray 06/19/18 14:18 IMPRESSION: No evidence of acute osseous injury. Hip X-Ray 06/20/18 18:27 IMPRESSION: Status post left total hip arthroplasty without evidence of complication. Marinelli bladder catheter. Chest X-Ray 06/21/18 11:45 IMPRESSION: Port-A-Cath with its tip projected at the level of the superior vena cava. No pneumothorax is seen. Other findings as noted above Assessment & Plan - Diagnosis (1) Fracture of femoral neck, left, closed Qualifiers: Encounter type: initial encounter Qualified Code(s): S72.002A - Fracture of unspecified part of neck of left femur, initial encounter for closed fracture Is this a current diagnosis for this admission?: Yes Plan: Patient is 62-year-old female POD #3 from left total hip arthroplasty after femoral neck fracture. Continue physical therapy Continue pain control Continue DVT prophylaxis Awaiting senior care facility placement
[2018-06-23] MEDS: QUETIAPINE FUMARATE 100 MG TABLET PO SCH (21:20)
[2018-06-23] MEDS: ATORVASTATIN CALCIUM 10 MG TABLET PO SCH (21:20)
[2018-06-23] MEDS: TRAMADOL HCL 50 MG TABLET PO PRN (21:21)
[2018-06-24] MEDS: LEVALBUTEROL HCL NEB 1.25 MG/3 ML AMPUL NEB SCH ×3 (00:20→16:06)
[2018-06-24] MEDS: IPRATROPIUM BROMIDE 0.02% NEB 0.5 MG/2.5 ML AMPUL NEB SCH ×3 (00:20→16:06)
[2018-06-24 04:31] LABS: HEMATOCRIT 26.1 % (36.0-47.0); HEMOGLOBIN 9.1 g/dL (12.0-15.5); MEAN CORPUSCULAR HEMOGLOBIN 34.1 pg (27.0-33.4); MEAN CORPUSCULAR HGB CONC 34.9 g/dL (32.0-36.0); MEAN CORPUSCULAR VOLUME 98 fl (80-97); PLATELET COUNT 160 10^3/uL (150-450); RED BLOOD COUNT 2.66 10^6/uL (3.72-5.28); WHITE BLOOD COUNT 11.1 10^3/uL (4.0-10.5)
[2018-06-24 04:55] LABS: ALBUMIN 2.1 g/dL (3.5-5.0); ANION GAP 8 (5-19); BLOOD UREA NITROGEN 17 mg/dL (7-20); CALCIUM 7.5 mg/dL (8.4-10.2); CARBON DIOXIDE 19 mmol/L (22-30); CHLORIDE 112 mmol/L (98-107); GLUCOSE 130 mg/dL (75-110); PHOSPHORUS 2.8 mg/dL (2.5-4.5); POTASSIUM 4.1 mmol/L (3.6-5.0); SODIUM 139.3 mmol/L (137-145)
[2018-06-24] MEDS: TRAMADOL HCL 50 MG TABLET PO PRN ×3 (05:10→22:39)
[2018-06-24] MEDS: BUDESONIDE NEB 0.5 MG/2 ML AMPUL NEB SCH ×2 (08:36→16:06)
[2018-06-24] MEDS: ENOXAPARIN SODIUM INJ 40 MG/0.4 ML DISP.SYRIN SUBCUT SCH (09:24)
[2018-06-24] MEDS: CHLORPROMAZINE HCL 10 MG TABLET PO SCH ×4 (09:24→22:38)
[2018-06-24] MEDS: POLYETHYLENE GLYCOL 3350 POWDER 17 GM/1 PACKET PO SCH ×2 (09:24→17:52)
[2018-06-24] MEDS: DOCUSATE SODIUM 100 MG CAPSULE PO SCH ×2 (09:24→17:52)
--- NOTE | 2018-06-24 17:08 | PDOC PROGRESS REPORT ---
Subjective Progress Note for:: 06/24/18 Subjective:: No issues overnight. Wearing the pillow between her legs as instructed. Reason For Visit: MODERATELY DISPLACED LEFT FEMORAL NECK FRACTURE Physical Exam Vital Signs: Temp Pulse Resp BP Pulse Ox 36.7 C 106 H 22 H 131/57 H 98 06/24/18 15:28 06/24/18 15:28 06/24/18 15:28 06/24/18 15:28 06/24/18 15:28 Intake & Output 06/23/18 06/24/18 06/25/18 06:59 06:59 06:59 Intake Total 2565 1988 1000 Output Total 4595 2275 Balance -2029 1000 Weight 77.2 kg 77.4 kg General appearance: PRESENT: no acute distress Head exam: PRESENT: atraumatic, normocephalic Adult Front & Back Image: 1 - Dressing was removed and incision is dry clean and intact and another OpSite dressing was applied. Neurovascular intact distally with limb lengths are grossly equal. Results Laboratory Results: 06/24/18 03:45 06/24/18 03:45 06/24/18 06/24/18 03:45 03:45 WBC 11.1 H RBC 2.66 L Hgb 9.1 L Hct 26.1 L MCV 98 H MCH 34.1 H MCHC 34.9 RDW 16.0 H Plt Count 160 Sodium 139.3 Potassium 4.1 Chloride 112 H Carbon Dioxide 19 L Anion Gap 8 BUN 17 Creatinine 1.22 Est GFR ( Amer) 54 L Est GFR (Non-Af Amer) 45 L Glucose 130 H Calcium 7.5 L Phosphorus 2.8 Magnesium 1.6 Albumin 2.1 L 06/19/18 06/19/18 06/20/18 19:09 19:09 01:15 Creatine Kinase 220 H 282 H CK-MB (CK-2) 14.20 H Troponin I 4.480 06/20/18 06/20/18 06/20/18 01:15 07:30 07:30 Creatine Kinase 304 H CK-MB (CK-2) 10.60 H 8.60 H Troponin I 4.100 3.100 Impressions: Femur X-Ray 06/19/18 14:18 IMPRESSION: Moderately displaced fracture of the femoral neck. Knee X-Ray 06/19/18 14:18 IMPRESSION: No evidence of acute osseous injury. Hip X-Ray 06/20/18 18:27 IMPRESSION: Status post left total hip arthroplasty without evidence of complication. Marinelli bladder catheter. Chest X-Ray 06/21/18 11:45 IMPRESSION: Port-A-Cath with its tip projected at the level of the superior vena cava. No pneumothorax is seen. Other findings as noted above Assessment & Plan - Diagnosis (1) Fracture of femoral neck, left, closed Qualifiers: Encounter type: initial encounter Qualified Code(s): S72.002A - Fracture of unspecified part of neck of left femur, initial encounter for closed fracture Is this a current diagnosis for this admission?: Yes Plan: Patient is 62-year-old female POD #for from left total hip arthroplasty after suffering femoral neck fracture. Continue physical therapy Continue pain control Continue DVT prophylaxis Awaiting group home facility placement
[2018-06-24] MEDS ORDERED: CHLORPROMAZINE HCL 10 MG TABLET ONE (22:32)
[2018-06-24] MEDS: QUETIAPINE FUMARATE 100 MG TABLET PO SCH (22:39)
[2018-06-24] MEDS: ATORVASTATIN CALCIUM 10 MG TABLET PO SCH (22:40)
[2018-06-25] MEDS: LEVALBUTEROL HCL NEB 1.25 MG/3 ML AMPUL NEB SCH ×3 (00:15→16:11)
[2018-06-25] MEDS: IPRATROPIUM BROMIDE 0.02% NEB 0.5 MG/2.5 ML AMPUL NEB SCH ×3 (00:15→16:11)
[2018-06-25] MEDS: BUDESONIDE NEB 0.5 MG/2 ML AMPUL NEB SCH ×2 (07:46→16:11)
--- NOTE | 2018-06-25 08:25 | PDOC PROGRESS REPORT ---
Subjective Progress Note for:: 06/24/18 Subjective:: Again the patient reports that she is feeling better today. She notes that each day she is feeling stronger. She was out of bed with physical therapy earlier today. She reports no difficulty with her breathing and pain consistent with her hip fracture. She is now off of intravenous pressors and maintaining reasonable blood pressure. Reason For Visit: MODERATELY DISPLACED LEFT FEMORAL NECK FRACTURE Physical Exam Vital Signs: Temp Pulse Resp BP Pulse Ox 98.5 F 92 16 130/56 H 95 06/25/18 03:33 06/25/18 07:46 06/25/18 07:46 06/25/18 03:33 06/25/18 07:46 Intake & Output 06/24/18 06/25/18 06/26/18 06:59 06:59 06:59 Intake Total 1987 1925 Output Total 2275 575 Balance -287 1350 Weight 77.4 kg 75.6 kg General appearance: PRESENT: no acute distress, well-developed, well-nourished Head exam: PRESENT: atraumatic, normocephalic Eye exam: PRESENT: conjunctiva pale, EOMI. ABSENT: scleral icterus Ear exam: PRESENT: normal external ear exam Neck exam: PRESENT: full ROM. ABSENT: JVD, tenderness Respiratory exam: PRESENT: clear to auscultation yasmeen, symmetrical. ABSENT: rales, rhonchi, wheezes Cardiovascular exam: PRESENT: RRR, +S1, +S2, systolic murmur Pulses: PRESENT: normal radial pulses GI/Abdominal exam: PRESENT: normal bowel sounds, soft. ABSENT: tenderness Gentrourinary exam: PRESENT: erythema - Erythema surrounding the left hip incision. A line of demarcation reveals that the erythema had recessed from last night. There is some tenderness but not unexpected postoperatively. There is no significant induration. Neurological exam: PRESENT: alert, awake, oriented to person, oriented to place , oriented to time, oriented to situation Psychiatric exam: PRESENT: flat affect, normal mood Skin exam: PRESENT: erythema - As above Results Laboratory Results: 06/24/18 03:45 06/24/18 03:45 06/19/18 06/19/18 06/20/18 19:09 19:09 01:15 Creatine Kinase 220 H 282 H CK-MB (CK-2) 14.20 H Troponin I 4.480 06/20/18 06/20/18 06/20/18 01:15 07:30 07:30 Creatine Kinase 304 H CK-MB (CK-2) 10.60 H 8.60 H Troponin I 4.100 3.100 Impressions: Femur X-Ray 06/19/18 14:18 IMPRESSION: Moderately displaced fracture of the femoral neck. Knee X-Ray 06/19/18 14:18 IMPRESSION: No evidence of acute osseous injury. Hip X-Ray 06/20/18 18:27 IMPRESSION: Status post left total hip arthroplasty without evidence of complication. Marinelli bladder catheter. Chest X-Ray 06/21/18 11:45 IMPRESSION: Port-A-Cath with its tip projected at the level of the superior vena cava. No pneumothorax is seen. Other findings as noted above Assessment & Plan - Diagnosis (1) Arterial hypotension Qualifiers: Hypotension type: unspecified hypotension type Qualified Code(s): I95.9 - Hypotension, unspecified Is this a current diagnosis for this admission?: Yes Plan: The patient has transferred from the ICU to [facility]. Her blood pressure has been stable. At this point I do not believe she needs IV fluids. I will recheck tomorrow to see if diuretics are appropriate. She was on multiple cardiac medications before this episode. These will need to be added back cautiously because of her prolonged episode of hypotension. (2) Acute renal failure (ARF) Qualifiers: Acute renal failure type: unspecified Qualified Code(s): N17.9 - Acute kidney failure, unspecified Is this a current diagnosis for this admission?: Yes Plan: Laboratory studies today revealed normal BUN and creatinine. We will need to monitor renal function if we resume her diuretic therapy. Urine output has been appropriate. (3) Fracture of femoral neck, left, closed Qualifiers: Encounter type: initial encounter Qualified Code(s): S72.002A - Fracture of unspecified part of neck of left femur, initial encounter for closed fracture Is this a current diagnosis for this admission?: Yes Plan: Surgery continues to follow the patient. The erythema around the incision is receding. I will defer to them whether or not antibiotic therapy is indicated. (4) Acute anemia Is this a current diagnosis for this admission?: Yes Plan: Patient did receive 2 units of packed red blood cells. Her hemoglobin is trending down slightly. I will reassess once her IV fluids are discontinued. (5) Hyperlipidemia Qualifiers: Hyperlipidemia type: unspecified Qualified Code(s): E78.5 - Hyperlipidemia , unspecified Is this a current diagnosis for this admission?: Yes Plan: Continue statin therapy for the duration of her stay. We will utilize atorvastatin [address] of her Crestor. (6) Schizophrenia Qualifiers: Schizophrenia type: unspecified Qualified Code(s): F20.9 - Schizophrenia, unspecified Is this a current diagnosis for this admission?: Yes Plan: The patient was previously on thiothixene for her chronic schizophrenia. During her inpatient stay she has been on Thorazine as well as Seroquel 100 mg at bedtime. Her family feels that she is improved on this regimen. Consideration to continue this regimen as an outpatient will be given. 06/23/18 the patient continues to be stable therefore we will continue the Thorazine and Seroquel. 06/24 her daughter was visiting today. And she confirmed that she feels her mother is doing better the Thorazine as opposed to the thiothixene. We will likely continue the Thorazine and Seroquel at discharge as noted above. (7) Nicotine dependence with current use Is this a current diagnosis for this admission?: Yes Plan: The patient continues to use the nicotine patch to help prevent withdrawal symptoms. At this point hopefully she will continue the smoking cessation. - Time Time Spent with patient: 25-34 minutes
[2018-06-25] MEDS: POLYETHYLENE GLYCOL 3350 POWDER 17 GM/1 PACKET PO SCH ×2 (09:56→17:17)
[2018-06-25] MEDS: DOCUSATE SODIUM 100 MG CAPSULE PO SCH ×2 (09:56→17:17)
[2018-06-25] MEDS: ENOXAPARIN SODIUM INJ 40 MG/0.4 ML DISP.SYRIN SUBCUT SCH (09:56)
[2018-06-25] MEDS: CHLORPROMAZINE HCL 10 MG TABLET PO SCH ×4 (09:56→21:33)
[2018-06-25] MEDS: FUROSEMIDE 20 MG TABLET PO SCH (13:06)
--- NOTE | 2018-06-25 14:46 | PDOC PROGRESS REPORT ---
Subjective Progress Note for:: 06/24/18 Subjective:: The patient has successfully transitioned from the ICU to the IMCU. She was still receiving gentle IV fluids. Her biggest issue is pain in her left hip postoperatively. There was some redness at the site that was outlined by nursing. She is otherwise resting comfortably. Reason For Visit: MODERATELY DISPLACED LEFT FEMORAL NECK FRACTURE Physical Exam Vital Signs: Temp Pulse Resp BP Pulse Ox 98.2 F 108 H 18 117/47 L 100 06/25/18 11:21 06/25/18 13:50 06/25/18 11:21 06/25/18 11:21 06/25/18 11:21 Intake & Output 06/24/18 06/25/18 06/26/18 06:59 06:59 06:59 Intake Total 1987 1925 473 Output Total 9725 575 Balance -287 1350 473 Weight 77.4 kg 75.6 kg General appearance: PRESENT: no acute distress, cooperative Head exam: PRESENT: atraumatic, normocephalic Eye exam: PRESENT: conjunctiva pale, EOMI. ABSENT: scleral icterus Ear exam: PRESENT: normal external ear exam Mouth exam: PRESENT: moist, tongue midline Neck exam: ABSENT: carotid bruit, JVD, lymphadenopathy, thyromegaly Respiratory exam: PRESENT: clear to auscultation yasmeen. ABSENT: rales, rhonchi, wheezes Cardiovascular exam: PRESENT: RRR, +S1, +S2 Pulses: PRESENT: normal radial pulses, +1 pedal pulses bilateral GI/Abdominal exam: PRESENT: normal bowel sounds, soft. ABSENT: distended, guarding, tenderness Rectal exam: PRESENT: deferred Extremities exam: PRESENT: other - Surgical dressing on the left hip incision. There is surrounding erythema but it has receded from the line of demarcation placed last evening.. ABSENT: clubbing, pedal edema Neurological exam: PRESENT: alert, awake, CN II-XII grossly intact Psychiatric exam: PRESENT: appropriate affect, normal mood Skin exam: PRESENT: other - Surgical wound as noted above. Results Laboratory Results: 06/24/18 03:45 06/24/18 03:45 06/19/18 06/19/18 06/20/18 19:09 19:09 01:15 Creatine Kinase 220 H 282 H CK-MB (CK-2) 14.20 H Troponin I 4.480 06/20/18 06/20/18 06/20/18 01:15 07:30 07:30 Creatine Kinase 304 H CK-MB (CK-2) 10.60 H 8.60 H Troponin I 4.100 3.100 Impressions: Femur X-Ray 06/19/18 14:18 IMPRESSION: Moderately displaced fracture of the femoral neck. Knee X-Ray 06/19/18 14:18 IMPRESSION: No evidence of acute osseous injury. Hip X-Ray 06/20/18 18:27 IMPRESSION: Status post left total hip arthroplasty without evidence of complication. Marinelli bladder catheter. Chest X-Ray 06/21/18 11:45 IMPRESSION: Port-A-Cath with its tip projected at the level of the superior vena cava. No pneumothorax is seen. Other findings as noted above Assessment & Plan - Diagnosis (1) Arterial hypotension Qualifiers: Hypotension type: unspecified hypotension type Qualified Code(s): I95.9 - Hypotension, unspecified Is this a current diagnosis for this admission?: Yes Plan: The patient has transferred from the ICU to [facility]. Her blood pressure has been stable. I have not reinstituted any antihypertensive medication at this point. We will continue to monitor the patient and resume antihypertensives and diuretics when clinically appropriate (2) Acute renal failure (ARF) Qualifiers: Acute renal failure type: unspecified Qualified Code(s): N17.9 - Acute kidney failure, unspecified Is this a current diagnosis for this admission?: Yes Plan: The patient's renal function continues to improve. Today her GFR was up to 45 with a normal creatinine of 1.22. We will continue to monitor her as she continues her oral diet and no IV fluid. (3) Fracture of femoral neck, left, closed Qualifiers: Encounter type: initial encounter Qualified Code(s): S72.002A - Fracture of unspecified part of neck of left femur, initial encounter for closed fracture Is this a current diagnosis for this admission?: Yes Plan: Orthopedic surgery continues to follow the patient. I will defer to their management. She will definitely need senior living placement for ongoing rehab. (4) Acute anemia Is this a current diagnosis for this admission?: Yes Plan: Her hemoglobin has been fairly stable after her 2 units of packed red blood cells. We will continue to monitor at this time. There is no indication for repeat transfusion. (5) Hyperlipidemia Qualifiers: Hyperlipidemia type: unspecified Qualified Code(s): E78.5 - Hyperlipidemia , unspecified Is this a current diagnosis for this admission?: Yes Plan: Continue statin therapy for the duration of her stay. We will utilize atorvastatin [address] of her Crestor. (6) Schizophrenia Qualifiers: Schizophrenia type: unspecified Qualified Code(s): F20.9 - Schizophrenia, unspecified Is this a current diagnosis for this admission?: Yes Plan: The patient was previously on thiothixene for her chronic schizophrenia. During her inpatient stay she has been on Thorazine as well as Seroquel 100 mg at bedtime. Her family feels that she is improved on this regimen. Consideration to continue this regimen as an outpatient will be given. 06/23/18 the patient continues to be stable therefore we will continue the Thorazine and Seroquel. 06/24 her daughter was visiting today. And she confirmed that she feels her mother is doing better the Thorazine as opposed to the thiothixene. We will likely continue the Thorazine and Seroquel at discharge as noted above. 06/25/2018-no family members were present today but the patient is at her baseline communicating appropriately. As noted above we will continue the Thorazine and Seroquel at discharge. (7) Nicotine dependence with current use Is this a current diagnosis for this admission?: Yes Plan: Continue nicotine patch availability. With her extended hospital stay hopefully she will maintain smoking cessation. - Time Time Spent with patient: 25-34 minutes Medications reviewed and adjusted accordingly: Yes
[2018-06-25] MEDS: TRAMADOL HCL 50 MG TABLET PO PRN (17:05)
--- NOTE | 2018-06-25 18:13 | PDOC PROGRESS REPORT ---
Subjective Progress Note for:: 06/25/18 Subjective:: Patient eating her dinner in the chair. Participating with therapy. No issues overnight. Reason For Visit: MODERATELY DISPLACED LEFT FEMORAL NECK FRACTURE Physical Exam Vital Signs: Temp Pulse Resp BP Pulse Ox 36.4 C 96 16 131/51 H 97 06/25/18 15:25 06/25/18 16:11 06/25/18 16:11 06/25/18 15:25 06/25/18 16:11 Intake & Output 06/24/18 06/25/18 06/26/18 06:59 06:59 06:59 Intake Total 1987 1925 710 Output Total 2275 575 Balance -287 1350 710 Weight 77.4 kg 75.6 kg Adult Front & Back Image: 1 - Incision and dressing are dry clean and intact. Limb lengths are grossly equal and she is neurovascular intact distally with soft calf and a negative Homans sign Results Laboratory Results: 06/24/18 03:45 06/24/18 03:45 06/19/18 06/19/18 06/20/18 19:09 19:09 01:15 Creatine Kinase 220 H 282 H CK-MB (CK-2) 14.20 H Troponin I 4.480 06/20/18 06/20/18 06/20/18 01:15 07:30 07:30 Creatine Kinase 304 H CK-MB (CK-2) 10.60 H 8.60 H Troponin I 4.100 3.100 Impressions: Femur X-Ray 06/19/18 14:18 IMPRESSION: Moderately displaced fracture of the femoral neck. Knee X-Ray 06/19/18 14:18 IMPRESSION: No evidence of acute osseous injury. Hip X-Ray 06/20/18 18:27 IMPRESSION: Status post left total hip arthroplasty without evidence of complication. Marinelli bladder catheter. Chest X-Ray 06/21/18 11:45 IMPRESSION: Port-A-Cath with its tip projected at the level of the superior vena cava. No pneumothorax is seen. Other findings as noted above Assessment & Plan - Diagnosis (1) Fracture of femoral neck, left, closed Qualifiers: Encounter type: initial encounter Qualified Code(s): S72.002A - Fracture of unspecified part of neck of left femur, initial encounter for closed fracture Is this a current diagnosis for this admission?: Yes Plan: Patient is 62-year-old female POD #4 from total hip arthroplasty after displaced femoral neck fracture. No need for antibiotics. Redness is due to swelling. No concern for infection.. Continue physical therapy Continue pain control Continue DVT prophylaxis Awaiting senior living facility placement
[2018-06-25] MEDS: ATORVASTATIN CALCIUM 10 MG TABLET PO SCH (21:31)
[2018-06-25] MEDS: INSULIN LISPRO 100 UNIT/ML 3 ML VIAL SUBCUT PRN (21:51)
[2018-06-26] MEDS: LEVALBUTEROL HCL NEB 1.25 MG/3 ML AMPUL NEB SCH ×3 (00:12→15:42)
[2018-06-26] MEDS: IPRATROPIUM BROMIDE 0.02% NEB 0.5 MG/2.5 ML AMPUL NEB SCH ×3 (00:12→15:43)
[2018-06-26] MEDS: TRAMADOL HCL 50 MG TABLET PO PRN ×2 (03:41→09:08)
[2018-06-26 05:26] LABS: HEMATOCRIT 26.1 % (36.0-47.0); HEMOGLOBIN 9.1 g/dL (12.0-15.5); MEAN CORPUSCULAR HEMOGLOBIN 34.2 pg (27.0-33.4); MEAN CORPUSCULAR HGB CONC 34.8 g/dL (32.0-36.0); MEAN CORPUSCULAR VOLUME 98 fl (80-97); PLATELET COUNT 215 10^3/uL (150-450); RED BLOOD COUNT 2.66 10^6/uL (3.72-5.28); RED CELL DISTRIBUTION WIDTH 15.4 % (11.5-14.0); WHITE BLOOD COUNT 9.6 10^3/uL (4.0-10.5)
[2018-06-26 05:39] LABS: ANION GAP 12 (5-19); BLOOD UREA NITROGEN 32 mg/dL (7-20); CALCIUM 8.7 mg/dL (8.4-10.2); CARBON DIOXIDE 21 mmol/L (22-30); CHLORIDE 108 mmol/L (98-107); GLUCOSE 120 mg/dL (75-110); POTASSIUM 3.9 mmol/L (3.6-5.0); SODIUM 140.6 mmol/L (137-145)
[2018-06-26] MEDS: BUDESONIDE NEB 0.5 MG/2 ML AMPUL NEB SCH ×2 (07:34→15:43)
--- NOTE | 2018-06-26 07:40 | PDOC PROGRESS REPORT ---
Subjective Progress Note for:: 06/26/18 Reason For Visit: MODERATELY DISPLACED LEFT FEMORAL NECK FRACTURE 62-year-old white female now postop day 6 status post left hip arthroplasty for femoral neck fracture. Postoperative course notable for intensive care for several days and now on a monitored floor. Physical Exam Vital Signs: Temp Pulse Resp BP Pulse Ox 36.7 C 103 H 16 128/46 H 98 06/26/18 03:22 06/26/18 03:22 06/26/18 03:22 06/26/18 03:22 06/26/18 03:22 Intake & Output 06/25/18 06/26/18 06/27/18 06:59 06:59 06:59 Intake Total 1925 1305 Output Total 575 1000 Balance 1350 305 Weight 75.6 kg 76.7 kg Physical Exam: Overweight if not obese middle-aged white female sitting up in a chair in the room with no complaints of pain. General appearance: PRESENT: no acute distress Respiratory exam: PRESENT: unlabored Cardiovascular exam: PRESENT: RRR Pulses: PRESENT: +1 pedal pulses bilateral Extremities exam: PRESENT: other - Right hip dressing with serous drainage. There is an end of ink pedro on the skin which presumably at some point indicated the demarcation of erythema. Erythema seems to have retreated. Leg lengths are equal. Distal neurovascular examination is intact. Results Laboratory Results: 06/26/18 04:27 06/26/18 04:27 06/26/18 06/26/18 04:27 04:27 WBC 9.6 RBC 2.66 L Hgb 9.1 L Hct 26.1 L MCV 98 H MCH 34.2 H MCHC 34.8 RDW 15.4 H Plt Count 215 Sodium 140.6 Potassium 3.9 Chloride 108 H Carbon Dioxide 21 L Anion Gap 12 BUN 32 H Creatinine 1.36 H Est GFR ( Amer) 48 L Est GFR (Non-Af Amer) 40 L Glucose 120 H Calcium 8.7 06/19/18 06/19/18 06/20/18 19:09 19:09 01:15 Creatine Kinase 220 H 282 H CK-MB (CK-2) 14.20 H Troponin I 4.480 06/20/18 06/20/18 06/20/18 01:15 07:30 07:30 Creatine Kinase 304 H CK-MB (CK-2) 10.60 H 8.60 H Troponin I 4.100 3.100 Impressions: Femur X-Ray 06/19/18 14:18 IMPRESSION: Moderately displaced fracture of the femoral neck. Knee X-Ray 06/19/18 14:18 IMPRESSION: No evidence of acute osseous injury. Hip X-Ray 06/20/18 18:27 IMPRESSION: Status post left total hip arthroplasty without evidence of complication. Marinelli bladder catheter. Chest X-Ray 06/21/18 11:45 IMPRESSION: Port-A-Cath with its tip projected at the level of the superior vena cava. No pneumothorax is seen. Other findings as noted above Status: Imported from PACS Assessment & Plan - Diagnosis (1) Fracture of femoral neck, left, closed Qualifiers: Encounter type: initial encounter Qualified Code(s): S72.002A - Fracture of unspecified part of neck of left femur, initial encounter for closed fracture Is this a current diagnosis for this admission?: Yes Plan: 62-year-old white female status post left hip arthroplasty for femoral neck fracture. Patient now being mobilized with physical therapy and awaiting [facility] facility placement. - Time Time Spent with patient: 15-24 minutes Anticipated discharge: SNF Within: when bed available
[2018-06-26] MEDS: ENOXAPARIN SODIUM INJ 40 MG/0.4 ML DISP.SYRIN SUBCUT SCH (09:08)
[2018-06-26] MEDS: FUROSEMIDE 20 MG TABLET PO SCH (09:08)
[2018-06-26] MEDS: DOCUSATE SODIUM 100 MG CAPSULE PO SCH ×2 (09:08→17:44)
[2018-06-26] MEDS: POLYETHYLENE GLYCOL 3350 POWDER 17 GM/1 PACKET PO SCH ×2 (09:09→17:44)
[2018-06-26] MEDS: CHLORPROMAZINE HCL 10 MG TABLET PO SCH ×4 (09:11→21:33)
[2018-06-26] MEDS: ACETAMINOPHEN 325 MG TABLET PO PRN (12:45)
--- NOTE | 2018-06-26 12:45 | PDOC PROGRESS REPORT ---
Subjective Progress Note for:: 06/26/18 Subjective:: Apparently transferred from ICU to IMCU yesterday. Doing better, hypotension resolved. Pain right hip controlled. No fever or chills, no chest pain or shortness of breath or palpitations. Reason For Visit: MODERATELY DISPLACED LEFT FEMORAL NECK FRACTURE Physical Exam Vital Signs: Temp Pulse Resp BP Pulse Ox 97.4 F 103 H 16 136/49 H 93 06/26/18 07:27 06/26/18 07:34 06/26/18 07:34 06/26/18 07:27 06/26/18 07:34 Intake & Output 06/25/18 06/26/18 06/27/18 06:59 06:59 06:59 Intake Total 1925 1305 Output Total 575 1000 Balance 1350 305 Weight 75.6 kg 76.7 kg General appearance: PRESENT: no acute distress, cooperative Head exam: PRESENT: atraumatic, normocephalic Neck exam: ABSENT: carotid bruit, JVD, lymphadenopathy, thyromegaly Respiratory exam: PRESENT: clear to auscultation yasmeen. ABSENT: rales, rhonchi, wheezes Cardiovascular exam: PRESENT: RRR, +S1, +S2 Pulses: PRESENT: normal radial pulses, +1 pedal pulses bilateral GI/Abdominal exam: PRESENT: normal bowel sounds, soft. ABSENT: distended, guarding, tenderness Rectal exam: PRESENT: deferred Extremities exam: PRESENT: other - Surgical dressing on the left hip incision. There is minimal surrounding erythema but it has markedly receded from the line of demarcation.. ABSENT: clubbing, pedal edema Neurological exam: PRESENT: alert, awake, CN II-XII grossly intact Psychiatric exam: PRESENT: appropriate affect, normal mood. Results Laboratory Results: 06/26/18 04:27 06/26/18 04:27 06/26/18 06/26/18 04:27 04:27 WBC 9.6 RBC 2.66 L Hgb 9.1 L Hct 26.1 L MCV 98 H MCH 34.2 H MCHC 34.8 RDW 15.4 H Plt Count 215 Sodium 140.6 Potassium 3.9 Chloride 108 H Carbon Dioxide 21 L Anion Gap 12 BUN 32 H Creatinine 1.36 H Est GFR ( Amer) 48 L Est GFR (Non-Af Amer) 40 L Glucose 120 H Calcium 8.7 06/19/18 06/19/18 06/20/18 19:09 19:09 01:15 Creatine Kinase 220 H 282 H CK-MB (CK-2) 14.20 H Troponin I 4.480 06/20/18 06/20/18 06/20/18 01:15 07:30 07:30 Creatine Kinase 304 H CK-MB (CK-2) 10.60 H 8.60 H Troponin I 4.100 3.100 Impressions: Femur X-Ray 06/19/18 14:18 IMPRESSION: Moderately displaced fracture of the femoral neck. Knee X-Ray 06/19/18 14:18 IMPRESSION: No evidence of acute osseous injury. Hip X-Ray 06/20/18 18:27 IMPRESSION: Status post left total hip arthroplasty without evidence of complication. Marinelli bladder catheter. Chest X-Ray 06/21/18 11:45 IMPRESSION: Port-A-Cath with its tip projected at the level of the superior vena cava. No pneumothorax is seen. Other findings as noted above Assessment & Plan - Diagnosis (1) Acute renal failure (ARF) Qualifiers: Acute renal failure type: unspecified Qualified Code(s): N17.9 - Acute kidney failure, unspecified Is this a current diagnosis for this admission?: Yes (2) Acute anemia Is this a current diagnosis for this admission?: Yes (3) Arterial hypotension Qualifiers: Hypotension type: unspecified hypotension type Qualified Code(s): I95.9 - Hypotension, unspecified Is this a current diagnosis for this admission?: Yes (4) Fracture of femoral neck, left, closed Qualifiers: Encounter type: initial encounter Qualified Code(s): S72.002A - Fracture of unspecified part of neck of left femur, initial encounter for closed fracture Is this a current diagnosis for this admission?: Yes (5) Hyperlipidemia Qualifiers: Hyperlipidemia type: unspecified Qualified Code(s): E78.5 - Hyperlipidemia , unspecified Is this a current diagnosis for this admission?: Yes (6) Nicotine dependence with current use Is this a current diagnosis for this admission?: Yes (7) Schizophrenia Qualifiers: Schizophrenia type: unspecified Qualified Code(s): F20.9 - Schizophrenia, unspecified Is this a current diagnosis for this admission?: Yes - Plan Summary Plan Summary: Left hip fracture status post left hip arthroplasty 06/20/18. Doing better. Orthopedics follow-up appreciated. Patient awaiting rehab. Schizophrenia controlled on current medications. Will continue regimen. Suspect anemia is secondary to acute blood loss. Hemoglobin stable, status post transfusion of 2 units packed red blood this admission. We will continue to trend H&H. For acute renal failure, follow-up Chem-7.
[2018-06-26] MEDS: NORMAL SALINE INJ/PF 0.9% 10 ML SDV IV PRN ×2 (15:17→21:31)
[2018-06-26] MEDS: INSULIN LISPRO 100 UNIT/ML 3 ML VIAL SUBCUT PRN ×2 (17:41→21:44)
[2018-06-26] MEDS: QUETIAPINE FUMARATE 100 MG TABLET PO SCH (21:30)
[2018-06-26] MEDS: ATORVASTATIN CALCIUM 10 MG TABLET PO SCH (21:32)
[2018-06-27] MEDS: LEVALBUTEROL HCL NEB 1.25 MG/3 ML AMPUL NEB SCH ×3 (00:14→15:52)
[2018-06-27] MEDS: IPRATROPIUM BROMIDE 0.02% NEB 0.5 MG/2.5 ML AMPUL NEB SCH ×3 (00:14→15:52)
[2018-06-27] MEDS: NORMAL SALINE INJ/PF 0.9% 10 ML SDV IV PRN ×3 (05:43→21:25)
[2018-06-27 06:11] LABS: ABSOLUTE EOSINOPHILS # (AUTO) 0.1 10^3/uL (0.0-0.6); ABSOLUTE LYMPHOCYTES (AUTO) 1.5 10^3/uL (0.5-4.7); ABSOLUTE MONOCYTES (AUTO) 1.1 10^3/uL (0.1-1.4); ABSOLUTE NEUT (AUTO) 7.7 10^3/uL (1.7-8.2); BASOPHILS % (AUTO) 0.2 % (0-2); EOSINOPHILS % (AUTO) 1.1 % (0-6); HEMATOCRIT 27.1 % (36.0-47.0); HEMOGLOBIN 9.4 g/dL (12.0-15.5); LYMPHOCYTES % (AUTO) 14.5 % (13-45); MEAN CORPUSCULAR HGB CONC 34.8 g/dL (32.0-36.0); MEAN CORPUSCULAR VOLUME 98 fl (80-97); MONOCYTES % (AUTO) 10.7 % (3-13); PLATELET COUNT 264 10^3/uL (150-450); RED BLOOD COUNT 2.77 10^6/uL (3.72-5.28); RED CELL DISTRIBUTION WIDTH 15.2 % (11.5-14.0); SEGMENTED NEUTROPHILS % (AUTO) 73.5 % (42-78); TOTAL CELLS COUNTED % (AUTO) 100 %; WHITE BLOOD COUNT 10.4 10^3/uL (4.0-10.5)
[2018-06-27 06:27] LABS: ANION GAP 9 (5-19); BLOOD UREA NITROGEN 32 mg/dL (7-20); CALCIUM 9.2 mg/dL (8.4-10.2); CARBON DIOXIDE 24 mmol/L (22-30); CHLORIDE 107 mmol/L (98-107); GLUCOSE 126 mg/dL (75-110); SODIUM 140.2 mmol/L (137-145)
[2018-06-27] MEDS: BUDESONIDE NEB 0.5 MG/2 ML AMPUL NEB SCH ×2 (08:13→15:52)
[2018-06-27] MEDS: ENOXAPARIN SODIUM INJ 40 MG/0.4 ML DISP.SYRIN SUBCUT SCH (09:40)
[2018-06-27] MEDS: FUROSEMIDE 20 MG TABLET PO SCH (09:40)
[2018-06-27] MEDS: TRAMADOL HCL 50 MG TABLET PO PRN ×2 (09:40→21:32)
[2018-06-27] MEDS: CHLORPROMAZINE HCL 10 MG TABLET PO SCH ×4 (09:41→21:23)
[2018-06-27] MEDS: POLYETHYLENE GLYCOL 3350 POWDER 17 GM/1 PACKET PO SCH ×2 (09:42→17:46)
[2018-06-27] MEDS: DOCUSATE SODIUM 100 MG CAPSULE PO SCH ×2 (09:42→17:46)
--- NOTE | 2018-06-27 11:41 | PDOC PROGRESS REPORT ---
Subjective Progress Note for:: 06/27/18 Subjective:: Apparently transferred from ICU to IMCU 06/25. Doing better, hypotension resolved. Pain right hip remains controlled. No fever or chills, no chest pain or shortness of breath or palpitations. Reason For Visit: MODERATELY DISPLACED LEFT FEMORAL NECK FRACTURE Physical Exam Vital Signs: Temp Pulse Resp BP Pulse Ox 98.7 F 89 16 133/45 H 97 06/27/18 07:30 06/27/18 08:15 06/27/18 08:15 06/27/18 07:30 06/27/18 08:15 Intake & Output 06/26/18 06/27/18 06/28/18 06:59 06:59 06:59 Intake Total 1305 1174 Output Total 1000 100 Balance 305 1074 Weight 76.7 kg 73.4 kg General appearance: PRESENT: no acute distress, cooperative Head exam: PRESENT: atraumatic, normocephalic Neck exam: ABSENT: carotid bruit, JVD, lymphadenopathy, thyromegaly Respiratory exam: PRESENT: clear to auscultation yasmeen. ABSENT: rales, rhonchi, wheezes Cardiovascular exam: PRESENT: RRR, +S1, +S2 Pulses: PRESENT: normal radial pulses, +1 pedal pulses bilateral GI/Abdominal exam: PRESENT: normal bowel sounds, soft. ABSENT: distended, guarding, tenderness Rectal exam: PRESENT: deferred Extremities exam: PRESENT: other - Surgical dressing on the left hip incision. There is minimal surrounding erythema but it has almost completely resolved. ABSENT: clubbing, pedal edema Neurological exam: PRESENT: alert, awake, CN II-XII grossly intact Psychiatric exam: PRESENT: appropriate affect, normal mood. Results Laboratory Results: 06/27/18 05:50 06/27/18 05:50 06/27/18 06/27/18 05:50 05:50 WBC 10.4 RBC 2.77 L Hgb 9.4 L Hct 27.1 L MCV 98 H MCH 34.0 H MCHC 34.8 RDW 15.2 H Plt Count 264 Seg Neutrophils % 73.5 Lymphocytes % 14.5 Monocytes % 10.7 Eosinophils % 1.1 Basophils % 0.2 Absolute Neutrophils 7.7 Absolute Lymphocytes 1.5 Absolute Monocytes 1.1 Absolute Eosinophils 0.1 Absolute Basophils 0.0 Sodium 140.2 Potassium 4.0 Chloride 107 Carbon Dioxide 24 Anion Gap 9 BUN 32 H Creatinine 1.30 H Est GFR ( Amer) 50 L Est GFR (Non-Af Amer) 42 L Glucose 126 H Calcium 9.2 06/19/18 06/19/18 06/20/18 19:09 19:09 01:15 Creatine Kinase 220 H 282 H CK-MB (CK-2) 14.20 H Troponin I 4.480 06/20/18 06/20/18 06/20/18 01:15 07:30 07:30 Creatine Kinase 304 H CK-MB (CK-2) 10.60 H 8.60 H Troponin I 4.100 3.100 Impressions: Femur X-Ray 06/19/18 14:18 IMPRESSION: Moderately displaced fracture of the femoral neck. Knee X-Ray 06/19/18 14:18 IMPRESSION: No evidence of acute osseous injury. Hip X-Ray 06/20/18 18:27 IMPRESSION: Status post left total hip arthroplasty without evidence of complication. Marinelli bladder catheter. Chest X-Ray 06/21/18 11:45 IMPRESSION: Port-A-Cath with its tip projected at the level of the superior vena cava. No pneumothorax is seen. Other findings as noted above Assessment & Plan - Diagnosis (1) Acute renal failure (ARF) Qualifiers: Acute renal failure type: unspecified Qualified Code(s): N17.9 - Acute kidney failure, unspecified Is this a current diagnosis for this admission?: Yes (2) Acute anemia Is this a current diagnosis for this admission?: Yes (3) Arterial hypotension Qualifiers: Hypotension type: unspecified hypotension type Qualified Code(s): I95.9 - Hypotension, unspecified Is this a current diagnosis for this admission?: Yes (4) Fracture of femoral neck, left, closed Qualifiers: Encounter type: initial encounter Qualified Code(s): S72.002A - Fracture of unspecified part of neck of left femur, initial encounter for closed fracture Is this a current diagnosis for this admission?: Yes (5) Hyperlipidemia Qualifiers: Hyperlipidemia type: unspecified Qualified Code(s): E78.5 - Hyperlipidemia , unspecified Is this a current diagnosis for this admission?: Yes (6) Nicotine dependence with current use Is this a current diagnosis for this admission?: Yes (7) Schizophrenia Qualifiers: Schizophrenia type: unspecified Qualified Code(s): F20.9 - Schizophrenia, unspecified Is this a current diagnosis for this admission?: Yes - Plan Summary Plan Summary: ESTHER continues to improve, almost completely resolved. Encouraged oral fluids. Will continue to monitor. Follow up chem 7 in a.m. Left hip fracture status post left hip arthroplasty 06/20/18. Doing better. Orthopedics following. Patient awaiting rehab SNF, likely after the weekend. Schizophrenia controlled on current medications. Will continue regimen. Suspect anemia is secondary to acute blood loss. Hemoglobin stable, status post transfusion of 2 units packed red blood this admission. We will continue to trend H&H.
[2018-06-27] MEDS: INSULIN LISPRO 100 UNIT/ML 3 ML VIAL SUBCUT PRN ×2 (17:23→21:37)
[2018-06-27] MEDS: ATORVASTATIN CALCIUM 10 MG TABLET PO SCH (21:23)
[2018-06-27] MEDS: QUETIAPINE FUMARATE 100 MG TABLET PO SCH (21:24)
[2018-06-28] MEDS: IPRATROPIUM BROMIDE 0.02% NEB 0.5 MG/2.5 ML AMPUL NEB SCH ×3 (00:23→16:07)
[2018-06-28] MEDS: LEVALBUTEROL HCL NEB 1.25 MG/3 ML AMPUL NEB SCH ×3 (00:23→16:09)
[2018-06-28] MEDS: NORMAL SALINE INJ/PF 0.9% 10 ML SDV IV PRN (05:25)
[2018-06-28 06:22] LABS: ABSOLUTE EOSINOPHILS # (AUTO) 0.1 10^3/uL (0.0-0.6); ABSOLUTE LYMPHOCYTES (AUTO) 1.6 10^3/uL (0.5-4.7); ABSOLUTE NEUT (AUTO) 8.7 10^3/uL (1.7-8.2); BASOPHILS % (AUTO) 0.3 % (0-2); EOSINOPHILS % (AUTO) 0.6 % (0-6); HEMATOCRIT 28.7 % (36.0-47.0); HEMOGLOBIN 9.6 g/dL (12.0-15.5); LYMPHOCYTES % (AUTO) 13.8 % (13-45); MEAN CORPUSCULAR HGB CONC 33.5 g/dL (32.0-36.0); MEAN CORPUSCULAR VOLUME 99 fl (80-97); MONOCYTES % (AUTO) 8.6 % (3-13); PLATELET COUNT 320 10^3/uL (150-450); RED BLOOD COUNT 2.91 10^6/uL (3.72-5.28); SEGMENTED NEUTROPHILS % (AUTO) 76.7 % (42-78); TOTAL CELLS COUNTED % (AUTO) 100 %; WHITE BLOOD COUNT 11.4 10^3/uL (4.0-10.5)
[2018-06-28 06:43] LABS: ANION GAP 9 (5-19); BLOOD UREA NITROGEN 39 mg/dL (7-20); CALCIUM 8.4 mg/dL (8.4-10.2); CARBON DIOXIDE 25 mmol/L (22-30); CHLORIDE 105 mmol/L (98-107); GLUCOSE 138 mg/dL (75-110); SODIUM 138.5 mmol/L (137-145)
[2018-06-28] MEDS: BUDESONIDE NEB 0.5 MG/2 ML AMPUL NEB SCH ×2 (09:07→16:07)
[2018-06-28] MEDS: ENOXAPARIN SODIUM INJ 40 MG/0.4 ML DISP.SYRIN SUBCUT SCH (10:01)
[2018-06-28] MEDS: CHLORPROMAZINE HCL 10 MG TABLET PO SCH ×2 (10:02→14:10)
[2018-06-28] MEDS: FUROSEMIDE 20 MG TABLET PO SCH (10:02)
[2018-06-28] MEDS: ACETAMINOPHEN 325 MG TABLET PO PRN (10:05)
[2018-06-28] MEDS: DOCUSATE SODIUM 100 MG CAPSULE PO SCH (10:08)
[2018-06-28] MEDS: POLYETHYLENE GLYCOL 3350 POWDER 17 GM/1 PACKET PO SCH (10:08)
[2018-06-28] MEDS: INSULIN LISPRO 100 UNIT/ML 3 ML VIAL SUBCUT PRN (12:19)
--- NOTE | 2018-06-28 12:27 | PDOC TRANSFER SUMMARY ---
General - Admit/Disc Date/PCP Admission Date/Primary Care Provider: 06/19/18 16:18 HOLDEN RHODES MD Discharge Date: 06/28/18 - Discharge Diagnosis (1) Fracture of femoral neck, left, closed Is this a current diagnosis for this admission?: Yes (2) Acute renal failure (ARF) Is this a current diagnosis for this admission?: Yes (3) Acute anemia Is this a current diagnosis for this admission?: Yes Summary: Suspect secondary to acute blood loss. (4) Arterial hypotension Is this a current diagnosis for this admission?: Yes (5) Hyperlipidemia Is this a current diagnosis for this admission?: Yes (6) Nicotine dependence with current use Is this a current diagnosis for this admission?: Yes (7) Schizophrenia Is this a current diagnosis for this admission?: Yes - Additional Information Resuscitation Status: Full Code Discharge Diet: Regular Prescriptions: Ferrous Sulfate 325 mg PO DAILY 30 Days #30 tablet Home Medications: Calcium Carbonate/Vitamin D3 [Calcium 600-Vit D3 400 Caplet] 1 tab-cap PO DAILY 06/19/18 Linagliptin [Tradjenta] 5 mg PO QPM 06/19/18 Lisinopril [Prinivil 10 mg Tablet] 10 mg PO DAILY 06/19/18 Multivitamin [Multiple Vitamins] 1 each PO QPM 06/19/18 Rosuvastatin Calcium [Crestor 5 mg Tablet] 5 mg PO DAILY 06/19/18 Thiothixene 5 mg PO QID 06/19/18 Acetaminophen [Tylenol 325 mg Tablet] 650 mg PO Q4HP PRN tablet 06/28/18 Docusate Sodium [Colace 100 mg Capsule] 100 mg PO BID capsule 06/28/18 Ferrous Sulfate 325 mg PO DAILY 30 Days #30 tablet 06/28/18 Nicotine [Nicoderm 21 mg/24 Hr Transderm Patch] 1 each TD DAILYP PRN patch.td24 06/28/18 Quetiapine Fumarate [Seroquel 100 mg Tablet] 100 mg PO QHS tablet 06/28/18 History of Present Illness Admission Date/PCP: 06/19/18 16:18 HOLDEN RHODES MD History of Present Illness: EDITH MONTAGUE is a 62 year old female Hospital Course Hospital Course: 62-year-old female admitted after she fell and sustained a left hip fracture as in HPI below: "EDITH MONTAGUE is a 62 year old female who complains of a painful left hip since a fall last evening. He states that she was seated and when she stood to walk she noticed that her left foot was "asleep" causing her left leg to get out from underneath her and a subsequent fall to the floor where she landed on the left side of her body striking her hip and pelvic region as the point of first contact. She noted immediate pain in her left hip and had worse pain when she tried to get up and stand. She stayed in the same position for quite some time until her family members found her in the morning and convinced her that she needed to get up and get some help. She refused to stand or move and so they help to lift her to the car and brought her to the emergency room for evaluation. She indicates that the pain that she has is located in the left hip and is not radiating. The pain is described as a sharp grating pain, worse with any movement and lessened by rest/remaining still. At its worst the pain is a 10 out of 10 in severity and at rest the pain is a 0-1 out of 10. She has not had prior similar episodes and has not identified any additional aggravating or ameliorating factors for her hip pain. She has a past history of schizophrenia and diabetes and takes numerous medications. In the emergency room she was found to have significant renal failure with a creatinine of 2.58 and a BUN of 44. She was admitted to the hospitalist service for medical stabilization prior to surgical attention to her left hip. Dr. Hill will be consulted for orthopedic management." Patient was admitted. She is status post left arthroplasty on [address] Liz Wiseman of orthopedics. Post-operatively patient developed hypotension and was observed in the ICU. Hospital course also significant for acute kidney injury. She was treated with IV fluids for bot hypotension and her acute kidney injury. Patient's psych medications were also continued during hospitalization and she did well. She is doing better now, blood pressure better, kidney function has improved. She has been cleared by orthopedics, and is being discharged to care home facility for rehab. She is to follow-up with her primary care physician within 1 week. She is also to follow-up with orthopedic surgery in about 1 week. She is to follow-up with mental health clinic. Patient is counseled about smoking cessation. She was treated with nicotine patch during hospitalization, will continue at this time. Suspect patient's anemia is secondary to acute blood loss. She received 2 units packed red blood cells during this hospitalization. She'll also be treated with iron sulfate. Please follow-up CBC. Suspect mild leukocytosis is reactive. Please continue to follow. Physical Exam Vital Signs: Temp Pulse Resp BP Pulse Ox 98.1 F 111 H 26 H 140/54 H 90 L 06/28/18 07:10 06/28/18 09:07 06/28/18 09:07 06/28/18 07:10 06/28/18 09:07 Intake & Output 06/27/18 06/28/18 06/29/18 06:59 06:59 06:59 Intake Total 1174 1368 Output Total 100 Balance 1074 1368 Weight 73.4 kg 71.1 kg General appearance: PRESENT: no acute distress, cooperative Head exam: PRESENT: atraumatic, normocephalic Neck exam: ABSENT: carotid bruit, JVD, lymphadenopathy, thyromegaly Respiratory exam: PRESENT: clear to auscultation yasmeen. ABSENT: rales, rhonchi, wheezes Cardiovascular exam: PRESENT: RRR, +S1, +S2 Pulses: PRESENT: normal radial pulses, +1 pedal pulses bilateral GI/Abdominal exam: PRESENT: normal bowel sounds, soft. ABSENT: distended, guarding, tenderness Rectal exam: PRESENT: deferred Extremities exam: PRESENT: other - Surgical dressing on the left hip incision. There is minimal surrounding erythema but it has almost completely resolved. ABSENT: clubbing, pedal edema Neurological exam: PRESENT: alert, awake, CN II-XII grossly intact Psychiatric exam: PRESENT: appropriate affect, normal mood. Results Laboratory Results: 06/28/18 05:30 06/28/18 05:30 06/28/18 06/28/18 05:30 05:30 WBC 11.4 H RBC 2.91 L Hgb 9.6 L Hct 28.7 L MCV 99 H MCH 33.0 MCHC 33.5 RDW 15.0 H Plt Count 320 Seg Neutrophils % 76.7 Lymphocytes % 13.8 Monocytes % 8.6 Eosinophils % 0.6 Basophils % 0.3 Absolute Neutrophils 8.7 H Absolute Lymphocytes 1.6 Absolute Monocytes 1.0 Absolute Eosinophils 0.1 Absolute Basophils 0.0 Sodium 138.5 Potassium 5.0 D Chloride 105 Carbon Dioxide 25 Anion Gap 9 BUN 39 H Creatinine 1.28 H Est GFR ( Amer) 51 L Est GFR (Non-Af Amer) 42 L Glucose 138 H Calcium 8.4 06/19/18 06/19/18 06/20/18 19:09 19:09 01:15 Creatine Kinase 220 H 282 H CK-MB (CK-2) 14.20 H Troponin I 4.480 06/20/18 06/20/18 06/20/18 01:15 07:30 07:30 Creatine Kinase 304 H CK-MB (CK-2) 10.60 H 8.60 H Troponin I 4.100 3.100 Impressions: Femur X-Ray 06/19/18 14:18 IMPRESSION: Moderately displaced fracture of the femoral neck. Knee X-Ray 06/19/18 14:18 IMPRESSION: No evidence of acute osseous injury. Hip X-Ray 06/20/18 18:27 IMPRESSION: Status post left total hip arthroplasty without evidence of complication. Marinelli bladder catheter. Chest X-Ray 06/21/18 11:45 IMPRESSION: Port-A-Cath with its tip projected at the level of the superior vena cava. No pneumothorax is seen. Other findings as noted above Transfer Plan - Time Spent with Patient Time spent with patient: Greater than 30 Minutes Qualifiers - * PATIENT BEING DISCHARGED WITH ANY OF THE FOLLOWING DIAGNOSIS: No
[2018-06-28 15:31] VITALS: BP 120/68
== END 2018-06-28 16:44 | DRG 470 ==
LOC: ER 13:49 → EH 16:18 → 4S 17:26 → ICU 06-20 19:48 → 3S 06-23 21:50
PROVIDERS: ADMIT Emergency Medicine; ATTEND Emergency Medicine
PROC: 3E0F73Z Introduction of Anti-inflammatory into Respiratory Tract, Via Natural or Artificial Opening (ICD-10-PCS; 2018-06-20)
PROC: 0SRB02A Replacement of Left Hip Joint with Metal on Polyethylene Synthetic Substitute, Uncemented, Open Approach (ICD-10-PCS; principal; 2018-06-20 16:00)
PROC: 02H633Z Insertion of Infusion Device into Right Atrium, Percutaneous Approach (ICD-10-PCS; 2018-06-21)
PROC: 30233N1 Transfusion of Nonautologous Red Blood Cells into Peripheral Vein, Percutaneous Approach (ICD-10-PCS; 2018-06-22)
PROC: 3E02340 Introduction of Influenza Vaccine into Muscle, Percutaneous Approach (ICD-10-PCS; 2018-06-28)
DX: S72.002A Fracture of unspecified part of neck of left femur, initial encounter for closed fracture (principal); N17.9 Acute kidney failure, unspecified; D62 Acute posthemorrhagic anemia; W01.0XXA Fall on same level from slipping, tripping and stumbling without subsequent striking against object, initial encounter; I95.9 Hypotension, unspecified; E78.00 Pure hypercholesterolemia, unspecified; F20.9 Schizophrenia, unspecified; E11.9 Type 2 diabetes mellitus without complications; F17.210 Nicotine dependence, cigarettes, uncomplicated; Z23 Encounter for immunization; Z79.899 Other long term (current) drug therapy; Z88.8 Allergy status to other drugs, medicaments and biological substances; Z83.3 Family history of diabetes mellitus
CPT/HCPCS: 01214; 36415; 36430; 71045; 80048; 80053; 80061; 80069; 82040; 82550; 82553; 82962; 83036; 83735; 84443; 84484; 85025; 85027; 85610; 85730; 86850; 86900; 86901; 86920; 88305; 88311; 90686; 93005; 93010; 94640; 94799; 96374; 99285; C1713; C1751; C1776; C9290; G8978-GP; G8979-GP; G8987-GO; G8988-GO; J0610; J0690; J1642; J1650; J1815; J1940; J2250; J2270; J2370; J2405; J2704; J3010; J3475; J3490; J7030; J7060; J7120; J7620; P9016; S0164

== ENCOUNTER 2018-07-05 13:08 | Inpatient (IN) | payer MEDICARE ==
[2018-07-05] MEDS ORDERED: ONDANSETRON 4 MG TAB.RAPDIS SL PRN (15:14)
[2018-07-05 15:45] LABS: ABSOLUTE BASOPHILS # (AUTO) 0.1 10^3/uL (0.0-0.2); ABSOLUTE EOSINOPHILS # (AUTO) 0.1 10^3/uL (0.0-0.6); ABSOLUTE LYMPHOCYTES (AUTO) 2.5 10^3/uL (0.5-4.7); ABSOLUTE MONOCYTES (AUTO) 0.9 10^3/uL (0.1-1.4); ABSOLUTE NEUT (AUTO) 8.1 10^3/uL (1.7-8.2); BASOPHILS % (AUTO) 0.4 % (0-2); EOSINOPHILS % (AUTO) 1.1 % (0-6); HEMATOCRIT 34.7 % (36.0-47.0); HEMOGLOBIN 11.7 g/dL (12.0-15.5); LYMPHOCYTES % (AUTO) 21.5 % (13-45); MEAN CORPUSCULAR HEMOGLOBIN 33.5 pg (27.0-33.4); MEAN CORPUSCULAR HGB CONC 33.7 g/dL (32.0-36.0); MEAN CORPUSCULAR VOLUME 99 fl (80-97); MONOCYTES % (AUTO) 8.1 % (3-13); PLATELET COUNT 608 10^3/uL (150-450); RED BLOOD COUNT 3.49 10^6/uL (3.72-5.28); SEGMENTED NEUTROPHILS % (AUTO) 68.9 % (42-78); TOTAL CELLS COUNTED % (AUTO) 100 %; WHITE BLOOD COUNT 11.7 10^3/uL (4.0-10.5)
[2018-07-05 15:51] LABS: INTERNATIONAL RATION (INR) 0.95; PROTHROMBIN TIME 13.2 SEC (11.4-15.4)
[2018-07-05 15:52] LABS: PARTIAL THROMBOPLASTIN TIME 28.2 SEC (23.5-35.8)
[2018-07-05 16:07] LABS: ANION GAP 10 (5-19); BLOOD UREA NITROGEN 56 mg/dL (7-20); C-REACTIVE PROTEIN 39.7 mg/L (<10.0); CALCIUM 10.3 mg/dL (8.4-10.2); CARBON DIOXIDE 28 mmol/L (22-30); CHLORIDE 104 mmol/L (98-107); GLUCOSE 108 mg/dL (75-110); POTASSIUM 5.9 mmol/L (3.6-5.0); SODIUM 141.5 mmol/L (137-145)
[2018-07-05 16:22] LABS: ERYTHROCYTE SEDIMENTATION RATE 115 mm/hr (0-30)
--- NOTE | 2018-07-05 16:51 | PDOC CONSULTATION ---
Consultation Consult Date: 07/05/18 Attending physician:: TRINIDAD HORTON Consult reason:: Preop evaluation for left hip surgery History of Present Illness Admission Date/PCP: 07/05/18 13:08 HOLDEN RHODES MD Patient complains of: Left hip pain History of Present Illness: EDITH MONTAGUE is a 62 year old female history of schizophrenia, recent left hip fracture status post left arthroplasty on 06/20/[address] Liz Horton of orthopedics. Post-operatively patient developed hypotension and was observed in the ICU. Hospital course during that admission also significant for acute kidney injury. She was treated with IV fluids for both hypotension and her acute kidney injury. Patient improved, kidney function has improved, she was cleared by orthopedics and was discharged to [facility] facility for rehab. Patient also had anemia likely related to blood loss from surgery during that admission and received 2 units packed red blood cells. Patient apparently followed up with orthopedist in clinic today and was suspected of having hardware malfunction on the left hip. Patient complains of pain, currently about 3 out of 10. States she has been unable to ambulate without assistance. She was referred to the hospital for admission, with plans for possible revision surgery tomorrow. Patient denies fever or chills, no chest pain or shortness of breath or palpitations. Denies history of CAD or CVA. Past Medical History Cardiac Medical History: Reports: Hyperlipidema Denies: Atrial Fibrillation, Congestive Heart Failure, Coronary Artery Disease, DVT, Myocardial Infarction, Hypertension, Peripheral Vascular Disease, Pulmonary Embolism, Heart Murmur Pulmonary Medical History: Denies: Asthma, Chronic Obstructive Pulmonary Disease (COPD), Respiratory Failure Neurological Medical History: Denies: Seizures Endocrine Medical History: Reports: Diabetes Mellitus Type 2 Denies: Diabetes Mellitus Type 1, Hyperthyroidism, Hypothyroidism GI Medical History: Denies: Crohn's Disease, Ulcerative Colitis Musculoskeltal Medical History: Denies: Arthritis, Gout Skin Medical History: Denies: Eczema, Psoriasis Hematology: Denies: Hemophilia, Bleeding Tendencies Social History Smoking Status: Smoker,Current Status Unk Frequency of Alcohol Use: None Hx Recreational Drug Use: No Drugs: None Hx Prescription Drug Abuse: No - Advance Directive Resuscitation Status: Full Code Family History Family History: DM Parental Family History Reviewed: Yes Children Family History Reviewed: Yes Sibling(s) Family History Reviewed.: Yes Medication/Allergy Home Medications: Calcium Carbonate/Vitamin D3 [Calcium 600-Vit D3 400 Caplet] 1 tab PO QAM Linagliptin [Tradjenta] 5 mg PO QPM 06/19/18 Lisinopril [Prinivil 10 mg Tablet] 10 mg PO QAM 06/19/18 Multivitamin [Multiple Vitamins] 1 each PO QPM 06/19/18 Thiothixene 5 mg PO QID 06/19/18 Docusate Sodium [Colace 100 mg Capsule] 100 mg PO BID capsule 06/28/18 Quetiapine Fumarate [Seroquel 100 mg Tablet] 100 mg PO QHS tablet 06/28/18 Acetaminophen [Tylenol 325 mg Tablet] 650 mg PO Q6HP PRN 07/05/18 Atorvastatin Calcium [Lipitor 20 mg Tablet] 20 mg PO QHS 07/05/18 Ferrous Sulfate 325 mg PO QAM 07/05/18 Insulin Lispro [Humalog Insulin 100 Unit/1 ml 3 ml Vial] 0 unit SUBCUT .SLD SCALE 07/05/18 Nicotine [Nicoderm 21 mg/24 Hr Transderm Patch] 1 each TD DAILYP PRN 07/05/18 Allergies/Adverse Reactions: merbromin [From Mercurochrome] Allergy (Verified 07/05/18 14:44) Review of Systems Review of Systems: CONSTITUTIONAL : Fever, chills -- No; unexpalined fatigue -- No EENT: Denies eye, ear, throat, or mouth pain or symptoms. Denies nasal or sinus congestion or discharge. Denies throat, tongue, or mouth swelling or difficulty swallowing. CARDIOVASCULAR: Denies chest pain. No racing heart RESPIRATORY: Denies cough, no shortness of breath, difficulty breathing. GASTROINTESTINAL: Denies abdominal pain or distention. Denies nausea, vomiting , or diarrhea. No rectal bleeding. GENITOURINARY: Urinary symptoms -- no. MUSCULOSKELETAL: No acute weakness SKIN: Denies rash, lesions or sores. HEMATOLOGIC : Denies easy bruising or bleeding. LYMPHATIC: Denies swollen, enlarged glands. NEUROLOGICAL: New weakness, headaches, slured speach - No PSYCHIATRIC: Changes anxiety or stress, depression, suicidal ideation, or homicidal ideation -- No ALL OTHER SYSTEMS REVIEWED AND NEGATIVE. Physical Exam Vital Signs: GENERAL: Well-developed, well-nourished female, no acute distress HEENT: Normocephalic/atraumatic NECK supple, no JVD CARDIOVASCULAR: RRR, normal S1-S2, no appreciable murmur LUNGS: CTA bilaterally ABDOMEN: Soft, NT, NL bowel sounds EXTREMITIES: 1+ edema, no clubbing or cyanosis; left hip recent surgical scar, no erythema NEUROLOGICAL: Alert, oriented x 3, nonfocal Results Laboratory Results: 07/05/18 15:25 07/05/18 15:25 WBC 11.7 H RBC 3.49 L Hgb 11.7 L Hct 34.7 L MCV 99 H MCH 33.5 H MCHC 33.7 RDW 15.0 H Plt Count 608 H Seg Neutrophils % 68.9 Lymphocytes % 21.5 Monocytes % 8.1 Eosinophils % 1.1 Basophils % 0.4 Absolute Neutrophils 8.1 Absolute Lymphocytes 2.5 Absolute Monocytes 0.9 Absolute Eosinophils 0.1 Absolute Basophils 0.1 Assessment & Plan - Diagnosis (1) Left hip pain Is this a current diagnosis for this admission?: Yes (2) Hyperlipidemia Qualifiers: Hyperlipidemia type: unspecified Qualified Code(s): E78.5 - Hyperlipidemia , unspecified Is this a current diagnosis for this admission?: Yes (3) Schizophrenia Qualifiers: Schizophrenia type: unspecified Qualified Code(s): F20.9 - Schizophrenia, unspecified Is this a current diagnosis for this admission?: Yes (4) Pre-op evaluation Is this a current diagnosis for this admission?: Yes (5) ESTHER (acute kidney injury) Is this a current diagnosis for this admission?: Yes (6) Hyperkalemia Is this a current diagnosis for this admission?: Yes - Plan Summary Plan Summary: Patient currently stable, no angina symptoms, no palpitations. She should be at standard risk for surgical revision of left hip hardware. Labs today with mild ESTHER, hyperkalemia. Will treat with gentle hydration and follow-up CBC and Chem-7 in a.m. prior to surgery. Check EKG.
[2018-07-05] MEDS ORDERED: NICOTINE 21 MG/24 HR PATCH.TD24 TD PRN (18:05)
[2018-07-05] MEDS ORDERED: SODIUM POLYSTYRENE SULFONATE 15 GM/60 ML PO ONE (18:10)
[2018-07-05] MEDS: OXYCODONE HCL IR 5 MG TABLET PO PRN (18:52)
[2018-07-05] MEDS: NORMAL SALINE 1000 ML 1,000 ML IV PRN (18:53)
--- NOTE | 2018-07-05 19:54 | RADIOLOGY REPORT (SQ) ---
EXAM DESCRIPTION: CT PELVIS WITHOUT COMPLETED DATE/TIME: 07/05/2018 7:01 pm REASON FOR STUDY: EVAL L ACETABULAR DEFECT COMPARISON: None. TECHNIQUE: CT scan of the pelvis performed without intravenous or oral contrast. Images reviewed wi th soft tissue and bone windows. Reconstructed coronal and sagittal MPR images reviewed. All images stored on PACS. All CT scanners at this facility use dose modulation, iterative reconstruction, and/or weight based d osing when appropriate to reduce radiation dose to as low as reasonably achievable (ALARA). [facility]: Dose Right [facility]: CareDose [facility]: Dose Right [facility]: Teradose 4D [facility]: [employer] RADIATION DOSE: CT Rad equipment meets quality standard of care and radiation dose reduction techniq ues were employed. CTDIvol: 18.8 mGy. DLP: 581 mGy-cm. mGy. LIMITATIONS: None. FINDINGS: PELVIC BONES: There is a fracture of the left acetabulum with protrusio acetabula. VISUALIZED SPINE: No acute findings. HIP(S): Left acetabular fracture. Left hip arthroplasty. PELVIC SOFT TISSUES: Left side pelvic hematoma along the iliacus muscle. EXTRAPELVIC SOFT TISSUES: No significant findings. OTHER: No other significant finding. IMPRESSION: Left left acetabular fracture as described. Small left pelvic hematoma. TECHNICAL DOCUMENTATION: JOB ID: [id number] Quality ID # [id number]: Final reports with documentation of one or more dose reduction techniques (e.g., Au tomated exposure control, adjustment of the mA and/or kV according to patient size, use of iterative reconstruction technique) 2010 [employer]- All Rights Reserved Reading location - IP/workstation name: [email or web address]
[2018-07-05] MEDS: QUETIAPINE FUMARATE 100 MG TABLET PO SCH (22:25)
[2018-07-05] MEDS: ATORVASTATIN CALCIUM 20 MG TABLET PO SCH (22:25)
[2018-07-05] MEDS: CHLORPROMAZINE HCL 10 MG TABLET PO SCH (22:25)
[2018-07-05] MEDS: ENOXAPARIN SODIUM INJ 30 MG/0.3 ML DISP.SYRIN SUBCUT SCH (22:26)
[2018-07-05] MEDS: MORPHINE SULFATE 10 MG/ML INJ IV PRN (22:39)
[2018-07-06 04:23] LABS: ABSOLUTE BASOPHILS # (AUTO) 0.1 10^3/uL (0.0-0.2); ABSOLUTE EOSINOPHILS # (AUTO) 0.1 10^3/uL (0.0-0.6); ABSOLUTE LYMPHOCYTES (AUTO) 3.7 10^3/uL (0.5-4.7); ABSOLUTE MONOCYTES (AUTO) 0.8 10^3/uL (0.1-1.4); ABSOLUTE NEUT (AUTO) 6.3 10^3/uL (1.7-8.2); BASOPHILS % (AUTO) 0.9 % (0-2); EOSINOPHILS % (AUTO) 1.3 % (0-6); HEMOGLOBIN 11.4 g/dL (12.0-15.5); LYMPHOCYTES % (AUTO) 33.8 % (13-45); MEAN CORPUSCULAR HGB CONC 34.4 g/dL (32.0-36.0); MEAN CORPUSCULAR VOLUME 99 fl (80-97); MONOCYTES % (AUTO) 7.6 % (3-13); PLATELET COUNT 483 10^3/uL (150-450); RED BLOOD COUNT 3.34 10^6/uL (3.72-5.28); RED CELL DISTRIBUTION WIDTH 14.9 % (11.5-14.0); SEGMENTED NEUTROPHILS % (AUTO) 56.4 % (42-78); TOTAL CELLS COUNTED % (AUTO) 100 %; WHITE BLOOD COUNT 11.1 10^3/uL (4.0-10.5)
[2018-07-06 04:46] LABS: ANION GAP 11 (5-19); BLOOD UREA NITROGEN 49 mg/dL (7-20); CALCIUM 9.8 mg/dL (8.4-10.2); CARBON DIOXIDE 24 mmol/L (22-30); CHLORIDE 107 mmol/L (98-107); GLUCOSE 130 mg/dL (75-110); POTASSIUM 5.1 mmol/L (3.6-5.0); SODIUM 141.8 mmol/L (137-145)
--- NOTE | 2018-07-06 06:09 | PDOC H&P ---
History of Present Illness Admission Date/PCP: 07/05/18 13:08 HOLDEN RHODES MD History of Present Illness: EDITH MONTAGUE is a 62 year old female The patient is a 62-year-old white female who initially presented to the emergency room on June 19, 2018 with a left femoral neck fracture. She was taken to the operating room and underwent a left hip arthroplasty to treat the femoral neck fracture. The patient had postoperative hypotension requiring intensive care stay. She was subsequently discharged and represented to the office yesterday with a protrusio of the acetabular component. She is readmitted with the anticipation of revision arthroplasty. Past Medical History Cardiac Medical History: Reports: Hyperlipidema Denies: Atrial Fibrillation, Congestive Heart Failure, Coronary Artery Disease, DVT, Myocardial Infarction, Hypertension, Peripheral Vascular Disease, Pulmonary Embolism, Heart Murmur Pulmonary Medical History: Denies: Asthma, Chronic Obstructive Pulmonary Disease (COPD), Respiratory Failure Neurological Medical History: Denies: Seizures Endocrine Medical History: Reports: Diabetes Mellitus Type 2 Denies: Diabetes Mellitus Type 1, Hyperthyroidism, Hypothyroidism GI Medical History: Denies: Crohn's Disease, Ulcerative Colitis Musculoskeltal Medical History: Denies: Arthritis, Gout Skin Medical History: Denies: Eczema, Psoriasis Hematology: Denies: Hemophilia, Bleeding Tendencies Past Surgical History Past Surgical History: Reports: Orthopedic Surgery - Left hip arthroplasty 06/20 Social History Information Source: Patient, Dr. Myers, [facility] Records Smoking Status: Former Smoker Frequency of Alcohol Use: None Hx Recreational Drug Use: No Drugs: None Hx Prescription Drug Abuse: No - Advance Directive Resuscitation Status: Full Code Family History Family History: Reviewed & Not Pertinent, DM Parental Family History Reviewed: No Children Family History Reviewed: No Sibling(s) Family History Reviewed.: No Medication/Allergy Home Medications: Calcium Carbonate/Vitamin D3 [Calcium 600-Vit D3 400 Caplet] 1 tab PO QAM Linagliptin [Tradjenta] 5 mg PO QPM 06/19/18 Lisinopril [Prinivil 10 mg Tablet] 10 mg PO QAM 06/19/18 Multivitamin [Multiple Vitamins] 1 each PO QPM 06/19/18 Thiothixene 5 mg PO QID 06/19/18 Docusate Sodium [Colace 100 mg Capsule] 100 mg PO BID capsule 06/28/18 Quetiapine Fumarate [Seroquel 100 mg Tablet] 100 mg PO QHS tablet 06/28/18 Acetaminophen [Tylenol 325 mg Tablet] 650 mg PO Q6HP PRN 07/05/18 Atorvastatin Calcium [Lipitor 20 mg Tablet] 20 mg PO QHS 07/05/18 Ferrous Sulfate 325 mg PO QAM 07/05/18 Insulin Lispro [Humalog Insulin 100 Unit/1 ml 3 ml Vial] 0 unit SUBCUT .SLD SCALE 07/05/18 Nicotine [Nicoderm 21 mg/24 Hr Transderm Patch] 1 each TD DAILYP PRN 07/05/18 Allergies/Adverse Reactions: merbromin [From Mercurochrome] Allergy (Verified 07/05/18 14:44) Review of Systems All systems: as per PMH Constitutional: ABSENT: anorexia, chills, fatigue, fever(s), headache(s), night sweats, weakness, weight gain, weight loss Physical Exam Vital Signs: Temp Pulse Resp BP Pulse Ox 36.5 C 90 18 125/54 L 98 07/05/18 23:31 07/05/18 23:31 07/05/18 19:21 07/05/18 23:31 07/05/18 23:31 Intake & Output 07/04/18 07/05/18 07/06/18 06:59 06:59 06:59 Intake Total 973 Output Total 2 Balance 971 Physical Exam: The patient is an obese middle-aged white female lying in hospital bed in minor distress. She is alert and oriented and understands she is being readmitted for revision surgery. She is confused about today's date as well as anticipated date of surgery. General appearance: PRESENT: no acute distress, mild distress, obese Respiratory exam: PRESENT: unlabored Cardiovascular exam: PRESENT: RRR Pulses: PRESENT: +1 pedal pulses bilateral Vascular exam: PRESENT: normal capillary refill GI/Abdominal exam: PRESENT: soft Rectal exam: PRESENT: deferred Extremities exam: PRESENT: other - Leg length inequality. Brisk capillary refill Psychiatric exam: PRESENT: normal mood, unusual affect Skin exam: PRESENT: dry, intact, warm. ABSENT: cyanosis, rash Results Laboratory Results: 07/06/18 03:38 07/06/18 03:38 07/05/18 07/05/18 07/05/18 15:25 15:25 15:25 WBC 11.7 H RBC 3.49 L Hgb 11.7 L Hct 34.7 L MCV 99 H MCH 33.5 H MCHC 33.7 RDW 15.0 H Plt Count 608 H Seg Neutrophils % 68.9 Lymphocytes % 21.5 Monocytes % 8.1 Eosinophils % 1.1 Basophils % 0.4 Absolute Neutrophils 8.1 Absolute Lymphocytes 2.5 Absolute Monocytes 0.9 Absolute Eosinophils 0.1 Absolute Basophils 0.1 Sodium 141.5 Potassium 5.9 H Chloride 104 Carbon Dioxide 28 Anion Gap 10 BUN 56 H Creatinine 1.63 H Est GFR ( Amer) 39 L Est GFR (Non-Af Amer) 32 L Glucose 108 Calcium 10.3 H Magnesium C-Reactive Protein 39.7 H Blood Type O POSITIVE Antibody Screen NEGATIVE 07/05/18 07/06/18 07/06/18 23:49 03:38 03:38 WBC 11.1 H RBC 3.34 L Hgb 11.4 L Hct 33.0 L MCV 99 H MCH 34.0 H MCHC 34.4 RDW 14.9 H Plt Count 483 H Seg Neutrophils % 56.4 Lymphocytes % 33.8 Monocytes % 7.6 Eosinophils % 1.3 Basophils % 0.9 Absolute Neutrophils 6.3 Absolute Lymphocytes 3.7 Absolute Monocytes 0.8 Absolute Eosinophils 0.1 Absolute Basophils 0.1 Sodium 141.8 Potassium 4.9 D 5.1 H Chloride 107 Carbon Dioxide 24 Anion Gap 11 BUN 49 H Creatinine 1.28 H Est GFR ( Amer) 51 L Est GFR (Non-Af Amer) 42 L Glucose 130 H Calcium 9.8 Magnesium 1.9 C-Reactive Protein Blood Type Antibody Screen Impressions: Pelvis CT 07/05/18 14:53 IMPRESSION: Left left acetabular fracture as described. Small left pelvic hematoma. 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 Patient also has elevated sedimentation rate and C-reactive protein which are concerning for an underlying surgical site infection. Plan will be for surgery tomorrow either to revise the acetabular component or to remove the components in place a cement spacer pending on frozen section at the time of surgery. - Time Time Spent: 50 to 70 Minutes Anticipated discharge: Other Within: Other
[2018-07-06] MEDS: NORMAL SALINE 1000 ML 1,000 ML IV PRN ×2 (06:22→22:20)
--- NOTE | 2018-07-06 07:38 | EKG REPORT ---
SEVERITY:- BORDERLINE ECG - SINUS RHYTHM V2 LEAD PLACEMENT ERROR : Confirmed by: Vito Garces MD 06-Jul-2018 07:37:49
[2018-07-06] MEDS: FERROUS SULFATE 325 MG TABLET PO SCH (08:12)
[2018-07-06] MEDS: OXYCODONE HCL IR 5 MG TABLET PO PRN (08:16)
[2018-07-06] MEDS: ENOXAPARIN SODIUM INJ 30 MG/0.3 ML DISP.SYRIN SUBCUT SCH ×2 (10:52→22:21)
[2018-07-06] MEDS: CHLORPROMAZINE HCL 10 MG TABLET PO SCH ×4 (10:53→22:22)
[2018-07-06 12:18] LABS: APPEARANCE,URINE TURBID; BILIRUBIN,URINE NEGATIVE (NEGATIVE); COLOR,URINE YELLOW; GLUCOSE, URINE 50 mg/dL (NEGATIVE); KETONES,URINE NEGATIVE (NEGATIVE); LEUKOCYTE ESTERASE,URINE LARGE (NEGATIVE); NITRITE,URINE POSITIVE (NEGATIVE); PROTEIN,URINE 100 mg/dL (NEGATIVE); URINE SPECIFIC GRAVITY 1.011; UROBILINOGEN,URINE NEGATIVE mg/dL (<2.0)
[2018-07-06] MEDS: MORPHINE SULFATE 10 MG/ML INJ IV PRN ×2 (12:47→18:54)
[2018-07-06] MEDS ORDERED: DEXTROSE 40% GEL 15 GM TUBE X 2 PO PRN (13:21)
[2018-07-06] MEDS ORDERED: DEXTROSE 50%-WATER SYRINGE 25 GM/50 ML DOSE IV PRN (13:21)
[2018-07-06] MEDS ORDERED: GLUCAGON,HUMAN RECOMB 1 MG INJ IM PRN (13:21)
[2018-07-06] MEDS ORDERED: DEXTROSE 50%-WATER SYRINGE 12.5 GM/25 ML DOSE IV PRN (13:21)
[2018-07-06] MEDS ORDERED: DEXTROSE 40% GEL 15 GM TUBE PO PRN (13:21)
--- NOTE | 2018-07-06 13:59 | PDOC PROGRESS REPORT ---
Subjective Progress Note for:: 07/06/18 Subjective:: Doing okay, pain control. Has some urinary frequency, no dysuria. No polyuria polydipsia. No chest pain or shortness of breath, no palpitations. Reason For Visit: MECHANICAL COMPLICATION OF LEFT HIP Physical Exam Vital Signs: Temp Pulse Resp BP Pulse Ox 98.3 F 109 H 16 120/45 L 97 07/06/18 11:28 07/06/18 11:28 07/06/18 11:28 07/06/18 11:28 07/06/18 11:28 Intake & Output 07/05/18 07/06/18 07/07/18 06:59 06:59 06:59 Intake Total 1834 Output Total 2 Balance 1832 GENERAL: Well-developed, well-nourished female, no acute distress HEENT: Normocephalic/atraumatic NECK supple, no JVD CARDIOVASCULAR: RRR, normal S1-S2, no appreciable murmur LUNGS: CTA bilaterally ABDOMEN: Soft, NT, NL bowel sounds EXTREMITIES: 1+ edema, no clubbing or cyanosis; left hip recent surgical scar, no erythema NEUROLOGICAL: Alert, oriented x 3, nonfocal Results Laboratory Results: 07/06/18 03:38 07/06/18 03:38 07/05/18 07/05/18 07/05/18 15:25 15:25 15:25 WBC 11.7 H RBC 3.49 L Hgb 11.7 L Hct 34.7 L MCV 99 H MCH 33.5 H MCHC 33.7 RDW 15.0 H Plt Count 608 H Seg Neutrophils % 68.9 Lymphocytes % 21.5 Monocytes % 8.1 Eosinophils % 1.1 Basophils % 0.4 Absolute Neutrophils 8.1 Absolute Lymphocytes 2.5 Absolute Monocytes 0.9 Absolute Eosinophils 0.1 Absolute Basophils 0.1 Sodium 141.5 Potassium 5.9 H Chloride 104 Carbon Dioxide 28 Anion Gap 10 BUN 56 H Creatinine 1.63 H Est GFR ( Amer) 39 L Est GFR (Non-Af Amer) 32 L Glucose 108 Calcium 10.3 H Magnesium C-Reactive Protein 39.7 H Urine Color Urine Appearance Urine pH Ur Specific [place] Urine Protein Urine Glucose (UA) Urine Ketones Urine Blood Urine Nitrite Ur Leukocyte Esterase Urine WBC (Auto) Urine RBC (Auto) Blood Type O POSITIVE Antibody Screen NEGATIVE 11/01/1507/06/18 07/06/18 23:49 03:38 03:38 WBC 11.1 H RBC 3.34 L Hgb 11.4 L Hct 33.0 L MCV 99 H MCH 34.0 H MCHC 34.4 RDW 14.9 H Plt Count 483 H Seg Neutrophils % 56.4 Lymphocytes % 33.8 Monocytes % 7.6 Eosinophils % 1.3 Basophils % 0.9 Absolute Neutrophils 6.3 Absolute Lymphocytes 3.7 Absolute Monocytes 0.8 Absolute Eosinophils 0.1 Absolute Basophils 0.1 Sodium 141.8 Potassium 4.9 D 5.1 H Chloride 107 Carbon Dioxide 24 Anion Gap 11 BUN 49 H Creatinine 1.28 H Est GFR ( Amer) 51 L Est GFR (Non-Af Amer) 42 L Glucose 130 H Calcium 9.8 Magnesium 1.9 C-Reactive Protein Urine Color Urine Appearance Urine pH Ur Specific [place] Urine Protein Urine Glucose (UA) Urine Ketones Urine Blood Urine Nitrite Ur Leukocyte Esterase Urine WBC (Auto) Urine RBC (Auto) Blood Type Antibody Screen 07/06/18 11:40 WBC RBC Hgb Hct MCV MCH MCHC RDW Plt Count Seg Neutrophils % Lymphocytes % Monocytes % Eosinophils % Basophils % Absolute Neutrophils Absolute Lymphocytes Absolute Monocytes Absolute Eosinophils Absolute Basophils Sodium Potassium Chloride Carbon Dioxide Anion Gap BUN Creatinine Est GFR ( Amer) Est GFR (Non-Af Amer) Glucose Calcium Magnesium C-Reactive Protein Urine Color YELLOW Urine Appearance TURBID Urine pH 6.0 Ur Specific [place] 1.011 Urine Protein 100 H Urine Glucose (UA) 50 H Urine Ketones NEGATIVE Urine Blood MODERATE H Urine Nitrite POSITIVE H Ur Leukocyte Esterase LARGE H Urine WBC (Auto) >182 Urine RBC (Auto) 22 Blood Type Antibody Screen Impressions: Pelvis CT 07/05/18 14:53 IMPRESSION: Left left acetabular fracture as described. Small left pelvic hematoma. Assessment & Plan - Diagnosis (1) Left hip pain Is this a current diagnosis for this admission?: Yes (2) Hyperlipidemia Qualifiers: Hyperlipidemia type: unspecified Qualified Code(s): E78.5 - Hyperlipidemia , unspecified Is this a current diagnosis for this admission?: Yes (3) Schizophrenia Qualifiers: Schizophrenia type: unspecified Qualified Code(s): F20.9 - Schizophrenia, unspecified Is this a current diagnosis for this admission?: Yes (4) Pre-op evaluation Is this a current diagnosis for this admission?: Yes (5) ESTHER (acute kidney injury) Is this a current diagnosis for this admission?: Yes (6) Hyperkalemia Is this a current diagnosis for this admission?: Yes (7) UTI (urinary tract infection) Is this a current diagnosis for this admission?: Yes - Plan Summary Plan Summary: Patient remains stable. Urinalysis suspicious for UTI. Will treat with Rocephin, follow-up urine culture. Acute kidney injury improving, as is hyperkalemia. We will continue IV fluid. Follow-up CBC and Chem-7 in a.m. Plan for revision of left hip surgery per orthopedics. Schizophrenia also stable. Continue medical management otherwise.
[2018-07-06] MEDS: CEFTAZIDIME PENTAHYDRATE 1 GM in DEXTROSE 5%-WATER 50 ML IV SCH ×2 (14:57→22:21)
[2018-07-06 17:54] LABS: ANION GAP 7 (5-19); BLOOD UREA NITROGEN 43 mg/dL (7-20); CALCIUM 9.4 mg/dL (8.4-10.2); CARBON DIOXIDE 28 mmol/L (22-30); CHLORIDE 106 mmol/L (98-107); GLUCOSE 121 mg/dL (75-110); SODIUM 140.7 mmol/L (137-145)
[2018-07-06] MEDS: ATORVASTATIN CALCIUM 20 MG TABLET PO SCH (22:21)
[2018-07-06] MEDS: QUETIAPINE FUMARATE 100 MG TABLET PO SCH (22:22)
[2018-07-07 05:47] LABS: ABSOLUTE BASOPHILS # (AUTO) 0.1 10^3/uL (0.0-0.2); ABSOLUTE EOSINOPHILS # (AUTO) 0.1 10^3/uL (0.0-0.6); ABSOLUTE LYMPHOCYTES (AUTO) 2.4 10^3/uL (0.5-4.7); ABSOLUTE MONOCYTES (AUTO) 0.7 10^3/uL (0.1-1.4); BASOPHILS % (AUTO) 0.6 % (0-2); EOSINOPHILS % (AUTO) 1.6 % (0-6); HEMATOCRIT 28.4 % (36.0-47.0); LYMPHOCYTES % (AUTO) 28.8 % (13-45); MEAN CORPUSCULAR HEMOGLOBIN 34.8 pg (27.0-33.4); MEAN CORPUSCULAR HGB CONC 35.1 g/dL (32.0-36.0); MEAN CORPUSCULAR VOLUME 99 fl (80-97); MONOCYTES % (AUTO) 8.8 % (3-13); PLATELET COUNT 412 10^3/uL (150-450); RED BLOOD COUNT 2.87 10^6/uL (3.72-5.28); RED CELL DISTRIBUTION WIDTH 14.9 % (11.5-14.0); SEGMENTED NEUTROPHILS % (AUTO) 60.2 % (42-78); TOTAL CELLS COUNTED % (AUTO) 100 %; WHITE BLOOD COUNT 8.3 10^3/uL (4.0-10.5)
[2018-07-07] MEDS: CEFTAZIDIME PENTAHYDRATE 1 GM in DEXTROSE 5%-WATER 50 ML IV SCH ×2 (06:09→20:11)
[2018-07-07 06:12] LABS: ANION GAP 11 (5-19); BLOOD UREA NITROGEN 35 mg/dL (7-20); CALCIUM 9.9 mg/dL (8.4-10.2); CARBON DIOXIDE 23 mmol/L (22-30); CHLORIDE 108 mmol/L (98-107); GLUCOSE 105 mg/dL (75-110); POTASSIUM 5.1 mmol/L (3.6-5.0); SODIUM 142.1 mmol/L (137-145)
[2018-07-07] MEDS: ENOXAPARIN SODIUM INJ 30 MG/0.3 ML DISP.SYRIN SUBCUT SCH ×2 (09:47→22:39)
[2018-07-07] MEDS: CHLORPROMAZINE HCL 10 MG TABLET PO SCH ×4 (09:48→22:40)
[2018-07-07] MEDS ORDERED: BUPIVACAINE HCL 0.25% /EPINEPHRINE INJ/PF 30 ML SDV ONE (10:21)
[2018-07-07] MEDS ORDERED: THROMBIN (BOVINE) TOPICAL 5000 UNIT VIAL ONE (10:21)
[2018-07-07] MEDS ORDERED: TRANEXAMIC ACID INJ/PF 1,000 MG/10 ML SDV IV ONE ×2 (11:00→11:11)
[2018-07-07] MEDS ORDERED: EPINEPHRINE INJ/PF 1 MG/1 ML AMPULE ONE (11:09)
[2018-07-07] MEDS ORDERED: BUPIVACAINE HCL/DEX-WATER/PF 15 MG/2 ML AMPULE ONE (11:09)
[2018-07-07] MEDS ORDERED: MIDAZOLAM 2 MG/2 ML INJ ONE (11:10)
[2018-07-07] MEDS ORDERED: FENTANYL CITRATE INJ/PF 100 MCG/2 ML AMPUL ONE (11:10)
[2018-07-07] MEDS ORDERED: EPHEDRINE SULFATE INJ 50 MG/1 ML AMPULE ONE (11:11)
[2018-07-07] MEDS ORDERED: PROPOFOL INJ 200 MG/20 ML VIAL IV ONE (11:11)
[2018-07-07] MEDS ORDERED: ONDANSETRON HCL INJ/PF 4 MG/2 ML SDV ONE (11:11)
[2018-07-07] MEDS ORDERED: DEXAMETHASONE SOD PHOSPHATE INJ 4 MG/1 ML VIAL ONE (11:11)
[2018-07-07] MEDS ORDERED: ACETAMINOPHEN 1,000 MG/100 ML RTUPB IV ONE (11:11)
[2018-07-07] MEDS ORDERED: BACITRACIN INJ 50,000 UNIT VIAL ONE (11:19)
[2018-07-07] MEDS ORDERED: VANCOMYCIN HCL INJ 1000 MG VIAL ONE (12:08)
[2018-07-07] MEDS ORDERED: MORPHINE SULFATE 10 MG/ML INJ IV PRN (12:26)
[2018-07-07] MEDS ORDERED: DIPHENHYDRAMINE HCL 50 MG/ML VIAL IV PRN (12:26)
[2018-07-07] MEDS ORDERED: PROMETHAZINE HCL INJ 25 MG/1 ML VIAL IV PRN ×2 (12:26)
[2018-07-07] MEDS ORDERED: FENTANYL CITRATE INJ/PF 100 MCG/2 ML AMPUL IV PRN ×3 (12:26)
[2018-07-07] MEDS ORDERED: OXYCODONE-ACETAMINOPHEN 5-325 MG TABLET PO PRN ×2 (12:26)
[2018-07-07] MEDS ORDERED: ONDANSETRON HCL INJ/PF 4 MG/2 ML SDV IV PRN (12:26)
[2018-07-07] MEDS ORDERED: MEPERIDINE HCL/PF INJ 25 MG/1 ML DISP.SYRIN IV PRN (12:26)
--- NOTE | 2018-07-07 12:58 | Operative Report ---
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 Removal of hip prosthesis. Insertion of cement spacer SURGEON: JUDITH MOTA ANESTHESIA: Spinal TISSUE REMOVED OR ALTERED: Cultures x2 to microbiology. Soft tissue to pathology. Implants to CSS ESTIMATED BLOOD LOSS: 75 PROCEDURE: With the patient in a right lateral decubitus position on the operative table left lower extremity hindquarter prepped and draped in sterile fashion. In line with the previous posterior approach the hip a curvilinear incision is made over the greater trochanter. Upon carrying the incision through the subcutaneous tissue a large amount of chocolate milk type fluid is encountered measuring possibly 500 cc. This is sent for culture and sensitivity. Further dissection down to the implant led to sampling of the synovium and this is sent for frozen section analysis. Frozen section analysis is returned consistent with acute inflammation. At this point the sciatic nerve is identified coming out of the sciatic notch. Its traced down to the gluteal sling. Is protected throughout the remainder of the case. The femoral head is disimpacted from the femoral stem. The femoral stem is next removed using an appropriate jig and a mallet. The soft tissues cleared off the face of the acetabulum. The polyethylene is removed. The underlying screw was removed. Next the shell is removed. The acetabular is explored and there are structural defects in both the anterior posterior columns. Because of the periprosthetic infection a decision was made to implant a cement spacer. This is constructed out of a single Steinmann pin with 3 bags of PMMA containing tobramycin and vancomycin. The wound is irrigated with 3 L normal saline 10 bacitracin and 3 L normal saline using pulse lavage. The cement spacer was then impacted into the femoral nail and reduced proximally into the acetabulum. The wound is then closed in layers interrupted PDS followed by donald. A sterile compressive dressing is applied and the patient's return to PACU in satisfactory condition.
[2018-07-07] MEDS ORDERED: VANCOMYCIN HCL 0 MG in DEXTROSE 5%-WATER 250 ML IV NR (14:00)
[2018-07-07] MEDS ORDERED: CEFTRIAXONE SODIUM 1,000 MG in DEXTROSE 5%-WATER 50 ML IV SCH (15:00)
[2018-07-07] MEDS ORDERED: PHENYLEPHRINE HCL INJ/PF 10 MG/1 ML SDV ONE (16:07)
[2018-07-07] MEDS: FERROUS SULFATE 325 MG TABLET PO SCH (17:16)
[2018-07-07] MEDS: CEFTRIAXONE SODIUM 2,000 MG in DEXTROSE 5%-WATER 100 ML IV SCH (17:17)
[2018-07-07] MEDS ORDERED: VANCOMYCIN HCL 1,000 MG in DEXTROSE 5%-WATER 250 ML IV SCH (18:00)
[2018-07-07] MEDS: OXYCODONE HCL IR 5 MG TABLET PO PRN (18:31)
--- NOTE | 2018-07-07 18:55 | PDOC PROGRESS REPORT ---
Subjective Progress Note for:: 07/07/18 Subjective:: Doing okay, pain controlled, status post mechanical failure left hip arthroplasty with suspected periprosthetic infection, status post removal of hip prosthesis and insertion of cement spacer today. No fever or chills. No chest pain or shortness of breath, no palpitations. Reason For Visit: MECHANICAL COMPLICATION OF LEFT HIP Physical Exam Vital Signs: Temp Pulse Resp BP Pulse Ox 98.0 F 95 17 141/47 H 98 07/07/18 16:40 07/07/18 16:40 07/07/18 16:40 07/07/18 16:40 07/07/18 16:40 Intake & Output 07/06/18 07/07/18 07/08/18 06:59 06:59 06:59 Intake Total 1834 1707 1850 Output Total 2 1800 675 Balance 1832 -93 1175 Weight 77.2 kg GENERAL: Well-developed, well-nourished female, no acute distress HEENT: Normocephalic/atraumatic NECK supple, no JVD CARDIOVASCULAR: RRR, normal S1-S2, no appreciable murmur LUNGS: CTA bilaterally ABDOMEN: Soft, NT, NL bowel sounds EXTREMITIES: 1+ edema, no clubbing or cyanosis; left hip dressing clean/dry/ intact NEUROLOGICAL: Alert, oriented x 3, nonfocal Results Laboratory Results: 07/07/18 04:52 07/07/18 04:52 07/06/18 07/07/18 07/07/18 17:20 04:52 04:52 WBC 8.3 RBC 2.87 L Hgb 10.0 L Hct 28.4 L MCV 99 H MCH 34.8 H MCHC 35.1 RDW 14.9 H Plt Count 412 Seg Neutrophils % 60.2 Lymphocytes % 28.8 Monocytes % 8.8 Eosinophils % 1.6 Basophils % 0.6 Absolute Neutrophils 5.0 Absolute Lymphocytes 2.4 Absolute Monocytes 0.7 Absolute Eosinophils 0.1 Absolute Basophils 0.1 Sodium 140.7 142.1 Potassium 5.0 5.1 H Chloride 106 108 H Carbon Dioxide 28 23 Anion Gap 7 11 BUN 43 H 35 H Creatinine 1.60 H 1.28 H Est GFR ( Amer) 40 L 51 L Est GFR (Non-Af Amer) 33 L 42 L Glucose 121 H 105 Calcium 9.4 9.9 Magnesium 1.8 Impressions: Pelvis CT 07/05/18 14:53 IMPRESSION: Left left acetabular fracture as described. Small left pelvic hematoma. Assessment & Plan - Diagnosis (1) Left hip pain Is this a current diagnosis for this admission?: Yes (2) Hyperlipidemia Qualifiers: Hyperlipidemia type: unspecified Qualified Code(s): E78.5 - Hyperlipidemia , unspecified Is this a current diagnosis for this admission?: Yes (3) Schizophrenia Qualifiers: Schizophrenia type: unspecified Qualified Code(s): F20.9 - Schizophrenia, unspecified Is this a current diagnosis for this admission?: Yes (4) Pre-op evaluation Is this a current diagnosis for this admission?: Yes (5) ESTHER (acute kidney injury) Is this a current diagnosis for this admission?: Yes (6) Hyperkalemia Is this a current diagnosis for this admission?: Yes (7) UTI (urinary tract infection) Is this a current diagnosis for this admission?: Yes - Plan Summary Plan Summary: Postop care per orthopedist. Urine culture growing gram-negative charles. We will continue antibiotic regimen, including Rocephin. Follow-up identification and sensitivity, follow-up surgical wound cultures results. Follow-up CBC and Chem- 7 in a.m.
[2018-07-07] MEDS: MORPHINE SULFATE 10 MG/ML INJ IV PRN (22:38)
[2018-07-07] MEDS: ATORVASTATIN CALCIUM 20 MG TABLET PO SCH (22:39)
[2018-07-07] MEDS: QUETIAPINE FUMARATE 100 MG TABLET PO SCH (22:40)
[2018-07-07] MEDS: INSULIN LISPRO 100 UNIT/ML 3 ML VIAL SUBCUT PRN (23:14)
[2018-07-08 05:31] LABS: ABSOLUTE LYMPHOCYTES (AUTO) 1.4 10^3/uL (0.5-4.7); ABSOLUTE NEUT (AUTO) 12.2 10^3/uL (1.7-8.2); BASOPHILS % (AUTO) 0.3 % (0-2); HEMATOCRIT 27.7 % (36.0-47.0); HEMOGLOBIN 9.6 g/dL (12.0-15.5); LYMPHOCYTES % (AUTO) 9.7 % (13-45); MEAN CORPUSCULAR HGB CONC 34.8 g/dL (32.0-36.0); MEAN CORPUSCULAR VOLUME 98 fl (80-97); MONOCYTES % (AUTO) 6.7 % (3-13); PLATELET COUNT 394 10^3/uL (150-450); RED BLOOD COUNT 2.84 10^6/uL (3.72-5.28); RED CELL DISTRIBUTION WIDTH 14.6 % (11.5-14.0); SEGMENTED NEUTROPHILS % (AUTO) 83.3 % (42-78); TOTAL CELLS COUNTED % (AUTO) 100 %; WHITE BLOOD COUNT 14.6 10^3/uL (4.0-10.5)
[2018-07-08 05:57] LABS: ANION GAP 11 (5-19); BLOOD UREA NITROGEN 30 mg/dL (7-20); CALCIUM 9.8 mg/dL (8.4-10.2); CARBON DIOXIDE 25 mmol/L (22-30); CHLORIDE 104 mmol/L (98-107); GLUCOSE 170 mg/dL (75-110); SODIUM 139.9 mmol/L (137-145)
[2018-07-08] MEDS: CHLORPROMAZINE HCL 10 MG TABLET PO SCH ×4 (09:08→21:56)
[2018-07-08] MEDS: ENOXAPARIN SODIUM INJ 30 MG/0.3 ML DISP.SYRIN SUBCUT SCH ×2 (09:08→21:56)
[2018-07-08] MEDS: FERROUS SULFATE 325 MG TABLET PO SCH (09:08)
[2018-07-08] MEDS: OXYCODONE HCL IR 5 MG TABLET PO PRN ×2 (11:08→21:57)
[2018-07-08] MEDS: RINGERS SOLUTION,LACTATED 1,000 ML IV PRN (11:08)
[2018-07-08] MEDS: INSULIN LISPRO 100 UNIT/ML 3 ML VIAL SUBCUT PRN (12:19)
[2018-07-08] MEDS: VANCOMYCIN HCL 1,250 MG in DEXTROSE 5%-WATER 250 ML IV SCH (12:19)
--- NOTE | 2018-07-08 16:11 | PDOC PROGRESS REPORT ---
Subjective Progress Note for:: 07/08/18 Subjective:: No complaint at this time, pain controlled, status post mechanical failure left hip arthroplasty with suspected periprosthetic infection, status post removal of hip prosthesis and insertion of cement spacer 07/07/18. No fever or chills. No chest pain or shortness of breath, no palpitations. Reason For Visit: MECHANICAL COMPLICATION OF LEFT HIP Physical Exam Vital Signs: Temp Pulse Resp BP Pulse Ox 98.1 F 106 H 12 134/53 H 97 07/08/18 07:28 07/08/18 07:28 07/08/18 07:28 07/08/18 07:28 07/08/18 07:28 Intake & Output 07/07/18 07/08/18 07/09/18 06:59 06:59 06:59 Intake Total 1707 2687 Output Total 1800 675 Balance -93 2011 Weight 77.2 kg 78.3 kg Results Laboratory Results: 07/08/18 05:05 07/08/18 05:05 07/08/18 07/08/18 05:05 05:05 WBC 14.6 H RBC 2.84 L Hgb 9.6 L Hct 27.7 L MCV 98 H MCH 34.0 H MCHC 34.8 RDW 14.6 H Plt Count 394 Seg Neutrophils % 83.3 H Lymphocytes % 9.7 L Monocytes % 6.7 Eosinophils % 0.0 Basophils % 0.3 Absolute Neutrophils 12.2 H Absolute Lymphocytes 1.4 Absolute Monocytes 1.0 Absolute Eosinophils 0.0 Absolute Basophils 0.0 Sodium 139.9 Potassium 5.0 Chloride 104 Carbon Dioxide 25 Anion Gap 11 BUN 30 H Creatinine 1.23 Est GFR ( Amer) 54 L Est GFR (Non-Af Amer) 44 L Glucose 170 H Calcium 9.8 Magnesium 1.7 07/06/18 11:40 Clean Catch Midstream Urine Culture - Final Enterobacter Cloacae Proteus Mirabilis Impressions: Pelvis CT 07/05/18 14:53 IMPRESSION: Left left acetabular fracture as described. Small left pelvic hematoma. Assessment & Plan - Diagnosis (1) Left hip pain Is this a current diagnosis for this admission?: Yes (2) Hyperlipidemia Qualifiers: Hyperlipidemia type: unspecified Qualified Code(s): E78.5 - Hyperlipidemia , unspecified Is this a current diagnosis for this admission?: Yes (3) Schizophrenia Qualifiers: Schizophrenia type: unspecified Qualified Code(s): F20.9 - Schizophrenia, unspecified Is this a current diagnosis for this admission?: Yes (4) Pre-op evaluation Is this a current diagnosis for this admission?: Yes (5) ESTHER (acute kidney injury) Is this a current diagnosis for this admission?: Yes (6) Hyperkalemia Is this a current diagnosis for this admission?: Yes (7) UTI (urinary tract infection) Is this a current diagnosis for this admission?: Yes - Plan Summary Plan Summary: Urine culture growing E Cloacae C and P mirabilis, both sensitive to Rocephin. We will continue Rocephin. Patient also on Vanco secondary to suspected infection left hip. Continue to follow his surgical culture result. Continue medical management otherwise. Continue IV fluids for now. Follow-up CBC and Chem-7 in a.m. If persistent leukocytosis, will consider consulting [facility].
[2018-07-08] MEDS: CEFTRIAXONE SODIUM 2,000 MG in DEXTROSE 5%-WATER 100 ML IV SCH (17:12)
[2018-07-08] MEDS: QUETIAPINE FUMARATE 100 MG TABLET PO SCH (21:56)
[2018-07-08] MEDS: ATORVASTATIN CALCIUM 20 MG TABLET PO SCH (21:56)
[2018-07-09 05:16] LABS: ABSOLUTE EOSINOPHILS # (AUTO) 0.1 10^3/uL (0.0-0.6); ABSOLUTE MONOCYTES (AUTO) 0.9 10^3/uL (0.1-1.4); ABSOLUTE NEUT (AUTO) 7.9 10^3/uL (1.7-8.2); BASOPHILS % (AUTO) 0.3 % (0-2); EOSINOPHILS % (AUTO) 0.6 % (0-6); HEMATOCRIT 27.8 % (36.0-47.0); HEMOGLOBIN 9.9 g/dL (12.0-15.5); LYMPHOCYTES % (AUTO) 18.6 % (13-45); MEAN CORPUSCULAR HEMOGLOBIN 34.6 pg (27.0-33.4); MEAN CORPUSCULAR HGB CONC 35.4 g/dL (32.0-36.0); MEAN CORPUSCULAR VOLUME 98 fl (80-97); MONOCYTES % (AUTO) 8.4 % (3-13); PLATELET COUNT 383 10^3/uL (150-450); RED BLOOD COUNT 2.84 10^6/uL (3.72-5.28); RED CELL DISTRIBUTION WIDTH 14.4 % (11.5-14.0); SEGMENTED NEUTROPHILS % (AUTO) 72.1 % (42-78); TOTAL CELLS COUNTED % (AUTO) 100 %; WHITE BLOOD COUNT 10.9 10^3/uL (4.0-10.5)
[2018-07-09 05:52] LABS: ANION GAP 13 (5-19); BLOOD UREA NITROGEN 28 mg/dL (7-20); CALCIUM 9.6 mg/dL (8.4-10.2); CARBON DIOXIDE 24 mmol/L (22-30); CHLORIDE 102 mmol/L (98-107); GLUCOSE 103 mg/dL (75-110); SODIUM 138.5 mmol/L (137-145)
--- NOTE | 2018-07-09 06:12 | PDOC PROGRESS REPORT ---
Subjective Progress Note for:: 07/09/18 Reason For Visit: MECHANICAL COMPLICATION OF LEFT HIP 62-year-old white female status post a resection arthroplasty left hip. Patient with minimal complaints of pain today. Making mild to moderate progress with physical therapy. Intraoperative cultures remain no growth so far. Physical Exam Vital Signs: Temp Pulse Resp BP Pulse Ox 36.6 C 90 18 123/69 99 07/09/18 04:00 07/09/18 04:00 07/09/18 04:00 07/09/18 04:00 07/09/18 04:00 Intake & Output 07/07/18 07/08/18 07/09/18 06:59 06:59 06:59 Intake Total 1707 2687 2536 Output Total 1988 002 1365 Balance -93 2011 Weight 77.2 kg 78.3 kg 74.6 kg General appearance: PRESENT: no acute distress, obese, well-nourished Head exam: PRESENT: normocephalic Respiratory exam: PRESENT: unlabored Cardiovascular exam: PRESENT: RRR Pulses: PRESENT: +1 pedal pulses bilateral Vascular exam: PRESENT: normal capillary refill GI/Abdominal exam: PRESENT: soft Rectal exam: PRESENT: deferred Extremities exam: PRESENT: other - Left hip dressing remains clean dry and intact. Results Laboratory Results: 07/09/18 04:52 07/09/18 04:52 07/09/18 07/09/18 04:52 04:52 WBC 10.9 H RBC 2.84 L Hgb 9.9 L Hct 27.8 L MCV 98 H MCH 34.6 H MCHC 35.4 RDW 14.4 H Plt Count 383 Seg Neutrophils % 72.1 Lymphocytes % 18.6 Monocytes % 8.4 Eosinophils % 0.6 Basophils % 0.3 Absolute Neutrophils 7.9 Absolute Lymphocytes 2.0 Absolute Monocytes 0.9 Absolute Eosinophils 0.1 Absolute Basophils 0.0 Sodium 138.5 Potassium 5.0 Chloride 102 Carbon Dioxide 24 Anion Gap 13 BUN 28 H Creatinine 1.15 Est GFR ( Amer) 58 L Est GFR (Non-Af Amer) 48 L Glucose 103 Calcium 9.6 07/06/18 11:40 Clean Catch Midstream Urine Culture - Final Enterobacter Cloacae Proteus Mirabilis Impressions: Pelvis CT 07/05/18 14:53 IMPRESSION: Left left acetabular fracture as described. Small left pelvic hematoma. Status: Imported from [facility] Assessment & Plan - Diagnosis (1) Mechanical complication associated with orthopedic device Qualifiers: Encounter type: subsequent encounter Qualified Code(s): T84.498D - Other mechanical complication of other internal orthopedic devices, implants and grafts, subsequent encounter Is this a current diagnosis for this admission?: Yes Plan: 62-year-old female status post resection of the left hip prosthesis because of a concern of underlying primary periprosthetic infection. Patient maintained on empiric vancomycin and Rocephin. Intraoperative cultures remain no growth so far. Anticipate discharge home with home health services. I think it would be most appropriate to await the final culture results prior to discharge. Patient can continue to work with physical therapy and mobilization. - Time Time Spent with patient: 15-24 minutes Anticipated discharge: Home with Homehealth Within: Other
[2018-07-09] MEDS: CHLORPROMAZINE HCL 10 MG TABLET PO SCH ×4 (09:11→21:47)
[2018-07-09] MEDS: FERROUS SULFATE 325 MG TABLET PO SCH (09:11)
[2018-07-09] MEDS: ENOXAPARIN SODIUM INJ 30 MG/0.3 ML DISP.SYRIN SUBCUT SCH ×2 (09:11→21:44)
[2018-07-09] MEDS: OXYCODONE HCL IR 5 MG TABLET PO PRN ×2 (11:05→21:53)
[2018-07-09] MEDS: VANCOMYCIN HCL 1,250 MG in DEXTROSE 5%-WATER 250 ML IV SCH (11:14)
[2018-07-09] MEDS: POLYETHYLENE GLYCOL 3350 POWDER 17 GM/1 PACKET PO SCH (11:20)
[2018-07-09] MEDS ORDERED: MAGNESIUM CITRATE 296 ML BOTTLE PO ONE (11:30)
[2018-07-09] MEDS: INSULIN LISPRO 100 UNIT/ML 3 ML VIAL SUBCUT PRN (14:21)
--- NOTE | 2018-07-09 16:03 | PDOC PROGRESS REPORT ---
Subjective Progress Note for:: 07/09/18 Subjective:: No complaint at this time, pain controlled, status post mechanical failure left hip arthroplasty with suspected periprosthetic infection, status post removal of hip prosthesis and insertion of cement spacer 07/07/18. Patient reports pain controlled, no fever or chills. No chest pain or shortness of breath, no palpitations. Reason For Visit: MECHANICAL COMPLICATION OF LEFT HIP Physical Exam Vital Signs: Temp Pulse Resp BP Pulse Ox 98.0 F 108 H 17 130/56 H 96 07/09/18 11:12 07/09/18 11:12 07/09/18 11:12 07/09/18 11:12 07/09/18 11:12 Intake & Output 07/08/18 07/09/18 07/10/18 06:59 06:59 06:59 Intake Total 2687 2536 250 Output Total 675 1550 Balance 2011 986 250 Weight 78.3 kg 74.6 kg GENERAL: Well-developed, well-nourished female, no acute distress NECK supple, no JVD CARDIOVASCULAR: RRR, normal S1-S2, no appreciable murmur LUNGS: CTA bilaterally ABDOMEN: Soft, NT, NL bowel sounds EXTREMITIES: 1+ edema, no clubbing or cyanosis; left hip surgical wound looks good NEUROLOGICAL: Alert, oriented x 3, nonfocal Results Laboratory Results: 07/09/18 04:52 07/09/18 04:52 07/09/18 07/09/18 04:52 04:52 WBC 10.9 H RBC 2.84 L Hgb 9.9 L Hct 27.8 L MCV 98 H MCH 34.6 H MCHC 35.4 RDW 14.4 H Plt Count 383 Seg Neutrophils % 72.1 Lymphocytes % 18.6 Monocytes % 8.4 Eosinophils % 0.6 Basophils % 0.3 Absolute Neutrophils 7.9 Absolute Lymphocytes 2.0 Absolute Monocytes 0.9 Absolute Eosinophils 0.1 Absolute Basophils 0.0 Sodium 138.5 Potassium 5.0 Chloride 102 Carbon Dioxide 24 Anion Gap 13 BUN 28 H Creatinine 1.15 Est GFR ( Amer) 58 L Est GFR (Non-Af Amer) 48 L Glucose 103 Calcium 9.6 07/06/18 11:40 Clean Catch Midstream Urine Culture - Final Enterobacter Cloacae Proteus Mirabilis Impressions: Pelvis CT 11/05/18 14:53 IMPRESSION: Left left acetabular fracture as described. Small left pelvic hematoma. Assessment & Plan - Diagnosis (1) UTI (urinary tract infection) Is this a current diagnosis for this admission?: Yes (2) ESTHER (acute kidney injury) Is this a current diagnosis for this admission?: Yes (3) Left hip pain Is this a current diagnosis for this admission?: Yes (4) Hyperlipidemia Qualifiers: Hyperlipidemia type: unspecified Qualified Code(s): E78.5 - Hyperlipidemia , unspecified Is this a current diagnosis for this admission?: Yes (5) Schizophrenia Qualifiers: Schizophrenia type: unspecified Qualified Code(s): F20.9 - Schizophrenia, unspecified Is this a current diagnosis for this admission?: Yes (6) Pre-op evaluation Is this a current diagnosis for this admission?: Yes (7) Hyperkalemia Is this a current diagnosis for this admission?: Yes - Plan Summary Plan Summary: Urine culture growing E Cloacae C and P mirabilis, both sensitive to Rocephin. We will continue Rocephin. Patient also on Vanco secondary to suspected infection of left hip arthroplasty that has now been removed. Continue to follow his surgical culture result. Orthopedist note appreciated. Encouraging is that white blood cells improved today. Continue medical management otherwise. Medicare has improved, we will continue IV fluids for now. Follow-up CBC and Chem-7 in a.m. If persistent leukocytosis or concerns, consider consulting [facility]. I will be of service by tomorrow, but hospitalist team will continue to follow patient.
[2018-07-09] MEDS: CEFTRIAXONE SODIUM 2,000 MG in DEXTROSE 5%-WATER 100 ML IV SCH (17:12)
[2018-07-09] MEDS: QUETIAPINE FUMARATE 100 MG TABLET PO SCH (21:44)
[2018-07-09] MEDS: ATORVASTATIN CALCIUM 20 MG TABLET PO SCH (21:44)
[2018-07-10 05:36] LABS: ABSOLUTE BASOPHILS # (AUTO) 0.1 10^3/uL (0.0-0.2); ABSOLUTE EOSINOPHILS # (AUTO) 0.1 10^3/uL (0.0-0.6); ABSOLUTE LYMPHOCYTES (AUTO) 2.4 10^3/uL (0.5-4.7); ABSOLUTE MONOCYTES (AUTO) 0.9 10^3/uL (0.1-1.4); BASOPHILS % (AUTO) 0.8 % (0-2); HEMATOCRIT 30.9 % (36.0-47.0); HEMOGLOBIN 10.5 g/dL (12.0-15.5); LYMPHOCYTES % (AUTO) 25.1 % (13-45); MEAN CORPUSCULAR HEMOGLOBIN 33.4 pg (27.0-33.4); MEAN CORPUSCULAR VOLUME 98 fl (80-97); MONOCYTES % (AUTO) 9.5 % (3-13); PLATELET COUNT 335 10^3/uL (150-450); RED BLOOD COUNT 3.15 10^6/uL (3.72-5.28); RED CELL DISTRIBUTION WIDTH 14.6 % (11.5-14.0); SEGMENTED NEUTROPHILS % (AUTO) 63.6 % (42-78); TOTAL CELLS COUNTED % (AUTO) 100 %; WHITE BLOOD COUNT 9.5 10^3/uL (4.0-10.5)
[2018-07-10 06:05] LABS: ANION GAP 12 (5-19); BLOOD UREA NITROGEN 36 mg/dL (7-20); CALCIUM 9.8 mg/dL (8.4-10.2); CARBON DIOXIDE 25 mmol/L (22-30); CHLORIDE 101 mmol/L (98-107); GLUCOSE 122 mg/dL (75-110); POTASSIUM 5.7 mmol/L (3.6-5.0); SODIUM 137.9 mmol/L (137-145)
[2018-07-10] MEDS: POLYETHYLENE GLYCOL 3350 POWDER 17 GM/1 PACKET PO SCH (09:02)
[2018-07-10] MEDS: FERROUS SULFATE 325 MG TABLET PO SCH (09:06)
[2018-07-10] MEDS: CHLORPROMAZINE HCL 10 MG TABLET PO SCH ×4 (09:06→21:35)
[2018-07-10] MEDS: ENOXAPARIN SODIUM INJ 30 MG/0.3 ML DISP.SYRIN SUBCUT SCH ×2 (09:06→21:35)
[2018-07-10] MEDS: OXYCODONE HCL IR 5 MG TABLET PO PRN ×2 (09:10→17:44)
[2018-07-10] MEDS: VANCOMYCIN HCL 1,250 MG in DEXTROSE 5%-WATER 250 ML IV SCH (12:33)
--- NOTE | 2018-07-10 12:33 | PDOC PROGRESS REPORT ---
Subjective Progress Note for:: 07/10/18 - seen on rounds this morning Subjective:: states she has left knee pain- mostly of the thigh area- states her hip feels fine. states the pain is mostly when she's moving. otherwise she has no other acute complaints at this time- denies c/p, SOB or abdominal pain, n/v. she was working with PT this morning. Reason For Visit: MECHANICAL COMPLICATION OF LEFT HIP Physical Exam Vital Signs: Temp Pulse Resp BP Pulse Ox 98.3 F 103 H 16 124/53 L 96 07/10/18 11:44 07/10/18 11:44 07/10/18 11:44 07/10/18 11:44 07/10/18 11:44 Intake & Output 07/09/18 07/10/18 07/11/18 06:59 06:59 06:59 Intake Total 2536 1236 Output Total 1550 1150 Balance 986 86 Weight 164 lb 7.437 oz 176 lb 2.389 oz General appearance: PRESENT: no acute distress, mild distress - left leg pain Head exam: PRESENT: atraumatic, normocephalic Eye exam: PRESENT: EOMI. ABSENT: scleral icterus Mouth exam: PRESENT: moist, tongue midline Neck exam: ABSENT: tracheal deviation Respiratory exam: PRESENT: clear to auscultation yasmeen, symmetrical Cardiovascular exam: PRESENT: +S1, +S2 Pulses: PRESENT: +1 pedal pulses bilateral - left LE distally GI/Abdominal exam: PRESENT: normal bowel sounds, soft. ABSENT: tenderness Musculoskeletal exam: PRESENT: tenderness - left hip tenderness to palpation- dressing noted- C/D/I. left thigh- minimal tendernesss- diffuse left knee- non tender left upper leg- no skin changes noted, no warmth, sensation intact Neurological exam: PRESENT: alert, awake, oriented to person, oriented to place , oriented to time, oriented to situation, CN II-XII grossly intact Skin exam: PRESENT: dry, warm Results Laboratory Results: 07/10/18 04:33 07/10/18 04:33 07/10/18 07/10/18 04:33 04:33 WBC 9.5 RBC 3.15 L Hgb 10.5 L Hct 30.9 L MCV 98 H MCH 33.4 MCHC 34.0 RDW 14.6 H Plt Count 335 Seg Neutrophils % 63.6 Lymphocytes % 25.1 Monocytes % 9.5 Eosinophils % 1.0 Basophils % 0.8 Absolute Neutrophils 6.0 Absolute Lymphocytes 2.4 Absolute Monocytes 0.9 Absolute Eosinophils 0.1 Absolute Basophils 0.1 Sodium 137.9 Potassium 5.7 H Chloride 101 Carbon Dioxide 25 Anion Gap 12 BUN 36 H Creatinine 1.28 H Est GFR ( Amer) 51 L Est GFR (Non-Af Amer) 42 L Glucose 122 H Calcium 9.8 Impressions: Pelvis CT 07/05/18 14:53 IMPRESSION: Left left acetabular fracture as described. Small left pelvic hematoma. Assessment & Plan - Diagnosis (1) Mechanical complication associated with orthopedic device Qualifiers: Encounter type: subsequent encounter Qualified Code(s): T84.498D - Other mechanical complication of other internal orthopedic devices, implants and grafts, subsequent encounter Is this a current diagnosis for this admission?: Yes (2) UTI (urinary tract infection) Is this a current diagnosis for this admission?: Yes (3) ESTHER (acute kidney injury) Is this a current diagnosis for this admission?: Yes (4) Hyperkalemia Is this a current diagnosis for this admission?: Yes (5) Left hip pain Is this a current diagnosis for this admission?: Yes (6) Hyperlipidemia Qualifiers: Hyperlipidemia type: unspecified Qualified Code(s): E78.5 - Hyperlipidemia , unspecified Is this a current diagnosis for this admission?: Yes - Time Time Spent with patient: 15-24 minutes - Plan Summary Plan Summary: Left hip - revision of left hip arthroplasty completed on 07/07/18. concern was for infection of previous prosthesis on 05/2018. she's currently on IV Rocephin and Vanco. Vanco was started yesterday. her WBC has trended down. May have to talk to ID from [facility] to discuss length of antibiotic therapy. thankfully her BCx has remained negative. continues to have left leg pain- pain control as needed. patient had left femoral neck fracture with arthroplasty in 05/2018 and returned to hospital for revision UTI- on Rocephin IV ESTHER- not sure if this is Acute or chronic. i think she might have ?CKD 3. will monitor for now- might need to follow up with PCP and discuss this further. Hyperkalemia- will repeat BMP this afternoon. she remain asymptomatic. monitor for now. will consider kayexalate and calcium gluconate
[2018-07-10] MEDS ORDERED: NORMAL SALINE 1000 ML 500 ML IV ONE (12:35)
[2018-07-10] MEDS ORDERED: CALCIUM GLUCONATE 1000 MG/10 ML INJ IV ONE (13:00)
[2018-07-10 13:28] LABS: VANCOMYCIN,TROUGH 12.1 ug/mL (5.0-20.0)
[2018-07-10] MEDS ORDERED: SODIUM POLYSTYRENE SULFONATE 15 GM/60 ML PO ONE (13:33)
[2018-07-10] MEDS: CEFTRIAXONE SODIUM 2,000 MG in DEXTROSE 5%-WATER 100 ML IV SCH (17:38)
[2018-07-10] MEDS: RINGERS SOLUTION,LACTATED 1,000 ML IV PRN (17:40)
[2018-07-10 19:54] LABS: ANION GAP 13 (5-19); BLOOD UREA NITROGEN 36 mg/dL (7-20); CARBON DIOXIDE 27 mmol/L (22-30); CHLORIDE 98 mmol/L (98-107); GLUCOSE 217 mg/dL (75-110)
[2018-07-10 19:59] LABS: POTASSIUM 4.5 mmol/L (3.6-5.0)
[2018-07-10] MEDS: INSULIN LISPRO 100 UNIT/ML 3 ML VIAL SUBCUT PRN (21:35)
[2018-07-10] MEDS: ATORVASTATIN CALCIUM 20 MG TABLET PO SCH (21:35)
[2018-07-10] MEDS: QUETIAPINE FUMARATE 100 MG TABLET PO SCH (21:38)
--- NOTE | 2018-07-11 06:50 | PDOC PROGRESS REPORT ---
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 Patient complains about being unable to bear weight on the left lower extremity. Cultures remain no growth so far. Patient remains afebrile. Physical Exam Vital Signs: Temp Pulse Resp BP Pulse Ox 36.9 C 114 H 18 123/55 L 96 07/10/18 23:06 07/10/18 23:06 07/10/18 23:06 07/10/18 23:06 07/10/18 23:06 Intake & Output 07/09/18 07/10/18 07/11/18 06:59 06:59 06:59 Intake Total 2536 1236 2658 Output Total 1550 1150 0 Balance 008 89 1861 Weight 74.6 kg 79.9 kg 74.1 kg General appearance: PRESENT: no acute distress, obese Respiratory exam: PRESENT: unlabored Cardiovascular exam: PRESENT: RRR Extremities exam: PRESENT: other - Left hip dressing remains clean dry and intact Results Laboratory Results: 07/10/18 04:33 07/10/18 19:28 07/10/18 07/10/18 14:52 19:28 Sodium Cancelled 138.0 Potassium Cancelled 4.5 D Chloride Cancelled 98 Carbon Dioxide Cancelled 27 Anion Gap Cancelled 13 BUN Cancelled 36 H Creatinine Cancelled 1.35 H Est GFR ( Amer) Cancelled 48 L Est GFR (Non-Af Amer) Cancelled 40 L Glucose Cancelled 217 H Calcium Cancelled 9.0 Impressions: Pelvis CT 07/05/18 14:53 IMPRESSION: Left left acetabular fracture as described. Small left pelvic hematoma. Status: Imported from PACS Assessment & Plan - Diagnosis (1) Mechanical complication associated with orthopedic device Qualifiers: Encounter type: subsequent encounter Qualified Code(s): T84.498D - Other mechanical complication of other internal orthopedic devices, implants and grafts, subsequent encounter Is this a current diagnosis for this admission?: Yes Plan: 62-year-old status post resection arthroplasty. Patient's cultures are no growth so far and this may reflect the fact that she had seen antibiotics prior to taking cultures for a recognized urinary tract infection? At this point I think the patient should be treated empirically for 6 weeks of IV antibiotic therapy. At that time she can come off antibiotic therapy and be reassessed 2 weeks later to assure that there is no residual infection. Following this reconstruction can be entertained. - Time Time Spent with patient: 15-24 minutes Anticipated discharge: SNF Within: when bed available
[2018-07-11] MEDS: FERROUS SULFATE 325 MG TABLET PO SCH (08:11)
[2018-07-11] MEDS: POLYETHYLENE GLYCOL 3350 POWDER 17 GM/1 PACKET PO SCH (09:03)
[2018-07-11] MEDS: OXYCODONE HCL IR 5 MG TABLET PO PRN ×2 (09:03→21:29)
[2018-07-11] MEDS: ENOXAPARIN SODIUM INJ 30 MG/0.3 ML DISP.SYRIN SUBCUT SCH ×2 (09:03→21:29)
[2018-07-11] MEDS: CHLORPROMAZINE HCL 10 MG TABLET PO SCH ×4 (09:04→21:25)
[2018-07-11] MEDS: VANCOMYCIN HCL 1,250 MG in DEXTROSE 5%-WATER 250 ML IV SCH (11:18)
[2018-07-11] MEDS: INSULIN LISPRO 100 UNIT/ML 3 ML VIAL SUBCUT PRN (11:51)
--- NOTE | 2018-07-11 12:59 | PDOC PROGRESS REPORT ---
Subjective Progress Note for:: 07/11/18 - seen on rounds this morning Subjective:: spoke with patient this morning- she was sleeping - states her left leg still hurts - but it is better than yesterday. denies chest pain, SOB, abdominal pain or n/v Reason For Visit: MECHANICAL COMPLICATION OF LEFT HIP Physical Exam Vital Signs: Temp Pulse Resp BP Pulse Ox 97.9 F 110 H 16 114/51 L 98 07/11/18 11:25 07/11/18 11:25 07/11/18 11:25 07/11/18 11:25 07/11/18 11:25 Intake & Output 07/10/18 07/11/18 07/12/18 06:59 06:59 06:59 Intake Total 1236 2658 355 Output Total 1150 0 1300 Balance 86 2658 -945 Weight 176 lb 2.389 oz 163 lb 5.8 oz General appearance: PRESENT: no acute distress Head exam: PRESENT: atraumatic, normocephalic Eye exam: PRESENT: EOMI, PERRLA. ABSENT: scleral icterus Ear exam: PRESENT: normal external ear exam Teeth exam: PRESENT: poor dentation Neck exam: ABSENT: tracheal deviation Respiratory exam: PRESENT: clear to auscultation yasmeen, symmetrical Cardiovascular exam: PRESENT: +S1, +S2 Pulses: PRESENT: +2 pedal pulses bilateral GI/Abdominal exam: PRESENT: normal bowel sounds, soft. ABSENT: tenderness Extremities exam: ABSENT: pedal edema Musculoskeletal exam: PRESENT: tenderness - left hip surgical site- dressing noted- mild edema with mild TTP- dressing C/D/I Neurological exam: PRESENT: alert, awake, oriented to person, oriented to place , oriented to time, oriented to situation, CN II-XII grossly intact Skin exam: PRESENT: dry, warm Results Laboratory Results: 07/10/18 04:33 07/10/18 19:28 07/10/18 07/10/18 14:52 19:28 Sodium Cancelled 138.0 Potassium Cancelled 4.5 D Chloride Cancelled 98 Carbon Dioxide Cancelled 27 Anion Gap Cancelled 13 BUN Cancelled 36 H Creatinine Cancelled 1.35 H Est GFR ( Amer) Cancelled 48 L Est GFR (Non-Af Amer) Cancelled 40 L Glucose Cancelled 217 H Calcium Cancelled 9.0 07/07/18 12:02 Hip - Superficial Gram Stain - Final 07/07/18 12:02 Hip - Superficial Wound Culture - Final NO AEROBIC OR ANAEROBIC ORGANISMS RECOVERED 07/07/18 12:02 Hip - Deep Wound Gram Stain - Final 07/07/18 12:02 Hip - Deep Wound Wound Culture - Final NO AEROBIC OR ANAEROBIC ORGANISMS RECOVERED Impressions: Pelvis CT 07/05/18 14:53 IMPRESSION: Left left acetabular fracture as described. Small left pelvic hematoma. Assessment & Plan - Diagnosis (1) Mechanical complication associated with orthopedic device Qualifiers: Encounter type: subsequent encounter Qualified Code(s): T84.498D - Other mechanical complication of other internal orthopedic devices, implants and grafts, subsequent encounter Is this a current diagnosis for this admission?: Yes (2) UTI (urinary tract infection) Is this a current diagnosis for this admission?: Yes (3) ESTHER (acute kidney injury) Is this a current diagnosis for this admission?: Yes (4) Hyperkalemia Is this a current diagnosis for this admission?: Yes (5) Left hip pain Is this a current diagnosis for this admission?: Yes (6) Hyperlipidemia Qualifiers: Hyperlipidemia type: unspecified Qualified Code(s): E78.5 - Hyperlipidemia , unspecified Is this a current diagnosis for this admission?: Yes - Time Time Spent with patient: 15-24 minutes - Plan Summary Plan Summary: Left hip - improving- revision of left hip arthroplasty completed on 07/07/18. concern was for infection of previous prosthesis on 05/2018. she's currently on IV Rocephin and Vanco. Vanco was started 07/08/18 by primary attending on case. as per ortho not- she will need 6 weeks IV antibiotics- if that is the case then she might need a PICC line. May have to talk to ID from [facility] [place] to discuss choice of ABx. thankfully her BCx has remained negative. continues to have left leg pain- pain control as needed. patient had left femoral neck fracture with arthroplasty in 05/2018 and returned to hospital for revision UTI- on Rocephin IV and vanco. UCx has grown enterobacter so far. ESTHER- Cr is elevated- not sure if this is Acute or chronic- no prior diagnosis. i think she might have ?CKD 3. will monitor for now- might need to follow up with PCP and discuss this further. Hyperkalemia- resolved- she remains asymptomatic. did give her meds yesterday monitor for now.
[2018-07-11] MEDS: CEFTRIAXONE SODIUM 2,000 MG in DEXTROSE 5%-WATER 100 ML IV SCH (17:09)
[2018-07-11] MEDS: RINGERS SOLUTION,LACTATED 1,000 ML IV PRN (17:13)
[2018-07-11] MEDS: ATORVASTATIN CALCIUM 20 MG TABLET PO SCH (21:25)
[2018-07-11] MEDS: QUETIAPINE FUMARATE 100 MG TABLET PO SCH (21:25)
[2018-07-12] MEDS: RINGERS SOLUTION,LACTATED 1,000 ML IV PRN (04:35)
[2018-07-12 05:50] LABS: ALANINE AMINOTRANSFERASE 30 U/L (9-52); ALBUMIN 2.7 g/dL (3.5-5.0); ALKALINE PHOSPHATASE 133 U/L (38-126); ANION GAP 11 (5-19); ASPARTATE AMINO TRANSFERASE 23 U/L (14-36); BILIRUBIN,DIRECT 0.2 mg/dL (0.0-0.4); BILIRUBIN,TOTAL 0.3 mg/dL (0.2-1.3); BLOOD UREA NITROGEN 30 mg/dL (7-20); CALCIUM 9.5 mg/dL (8.4-10.2); CARBON DIOXIDE 24 mmol/L (22-30); CHLORIDE 105 mmol/L (98-107); GLUCOSE 102 mg/dL (75-110); POTASSIUM 4.8 mmol/L (3.6-5.0); SODIUM 140.3 mmol/L (137-145); TOTAL PROTEIN 5.6 g/dL (6.3-8.2)
[2018-07-12] MEDS: FERROUS SULFATE 325 MG TABLET PO SCH (07:11)
[2018-07-12] MEDS: OXYCODONE HCL IR 5 MG TABLET PO PRN (08:16)
[2018-07-12] MEDS: POLYETHYLENE GLYCOL 3350 POWDER 17 GM/1 PACKET PO SCH (09:35)
[2018-07-12] MEDS: ENOXAPARIN SODIUM INJ 30 MG/0.3 ML DISP.SYRIN SUBCUT SCH ×2 (09:36→23:07)
[2018-07-12] MEDS: CHLORPROMAZINE HCL 10 MG TABLET PO SCH ×4 (09:36→23:07)
--- NOTE | 2018-07-12 13:41 | PDOC PROGRESS REPORT ---
Subjective Progress Note for:: 07/12/18 - seen on rounds this morning Subjective:: she tells me today that she actually feels better- states her pain on the left side is much better this morning. she denies any acute complaints this morning- no chest pain, SOB or abdominal pain Reason For Visit: MECHANICAL COMPLICATION OF LEFT HIP Physical Exam Vital Signs: Temp Pulse Resp BP Pulse Ox 97.8 F 102 H 16 123/50 L 92 07/12/18 11:25 07/12/18 11:25 07/12/18 11:25 07/12/18 11:25 07/12/18 11:25 Intake & Output 07/11/18 07/12/18 07/13/18 06:59 06:59 06:59 Intake Total 2658 2237 355 Output Total 0 2200 1100 Balance 2658 37 -745 Weight 163 lb 5.8 oz 155 lb 3.287 oz General appearance: PRESENT: no acute distress Head exam: PRESENT: atraumatic, normocephalic Eye exam: PRESENT: EOMI. ABSENT: scleral icterus Ear exam: PRESENT: normal external ear exam Mouth exam: PRESENT: tongue midline Neck exam: ABSENT: tracheal deviation Respiratory exam: PRESENT: clear to auscultation yasmeen, symmetrical Cardiovascular exam: PRESENT: +S1, +S2 Pulses: PRESENT: +2 pedal pulses bilateral GI/Abdominal exam: PRESENT: normal bowel sounds, soft. ABSENT: tenderness Extremities exam: ABSENT: pedal edema Musculoskeletal exam: PRESENT: other - left hip- dressing noted- minimal TTP over the surgical site- C/D/I dressing- sensation intact Neurological exam: PRESENT: alert, awake, oriented to person, oriented to place , oriented to time, oriented to situation, CN II-XII grossly intact Skin exam: PRESENT: dry, warm Results Laboratory Results: 07/10/18 04:33 07/12/18 04:32 07/12/18 04:32 Sodium 140.3 Potassium 4.8 Chloride 105 Carbon Dioxide 24 Anion Gap 11 BUN 30 H Creatinine 1.10 Est GFR ( Amer) > 60 Est GFR (Non-Af Amer) 50 L Glucose 102 Calcium 9.5 Magnesium 1.9 Total Bilirubin 0.3 AST 23 ALT 30 Alkaline Phosphatase 133 H Total Protein 5.6 L Albumin 2.7 L 07/07/18 12:02 Hip - Superficial Gram Stain - Final 07/07/18 12:02 Hip - Superficial Wound Culture - Final NO AEROBIC OR ANAEROBIC ORGANISMS RECOVERED 07/07/18 12:02 Hip - Deep Wound Gram Stain - Final 07/07/18 12:02 Hip - Deep Wound Wound Culture - Final NO AEROBIC OR ANAEROBIC ORGANISMS RECOVERED Impressions: Pelvis CT 07/05/18 14:53 IMPRESSION: Left left acetabular fracture as described. Small left pelvic hematoma. Assessment & Plan - Diagnosis (1) Mechanical complication associated with orthopedic device Qualifiers: Encounter type: subsequent encounter Qualified Code(s): T84.498D - Other mechanical complication of other internal orthopedic devices, implants and grafts, subsequent encounter Is this a current diagnosis for this admission?: Yes (2) UTI (urinary tract infection) Is this a current diagnosis for this admission?: Yes (3) ESTHER (acute kidney injury) Is this a current diagnosis for this admission?: Yes (4) Hyperkalemia Is this a current diagnosis for this admission?: Yes (5) Left hip pain Is this a current diagnosis for this admission?: Yes (6) Hyperlipidemia Qualifiers: Hyperlipidemia type: unspecified Qualified Code(s): E78.5 - Hyperlipidemia , unspecified Is this a current diagnosis for this admission?: Yes - Time Time Spent with patient: 15-24 minutes - Plan Summary Plan Summary: Left hip - better this morning - revision of left hip arthroplasty completed on 07/07/18. concern was for infection of previous prosthesis on 05/2018. she's currently on IV Rocephin and Vanco. Vanco was started 07/08/18 by primary attending on case. as per ortho note- she will need 6 weeks IV antibiotics-I have ordered a PICC line today- I have called pharmacy about choice of antibiotics - awaiting call back- her BCx has remained negative. continues to have some left leg pain- pain control as needed per ortho patient had left femoral neck fracture with arthroplasty in 05/2018 and returned to hospital for revision UTI- on Rocephin IV and vanco. UCx has grown enterobacter so far. ESTHER- higher than normal Cr- not sure if this is Acute or chronic- no prior diagnosis. i think she might have ?CKD 3. will monitor for now- might need to follow up with PCP and discuss this further. Hyperkalemia- resolved- she remains asymptomatic. did give her meds yesterday monitor for now
[2018-07-12] MEDS: VANCOMYCIN HCL 1,250 MG in DEXTROSE 5%-WATER 250 ML IV SCH (14:22)
--- NOTE | 2018-07-12 15:19 | RADIOLOGY REPORT (SQ) ---
EXAM DESCRIPTION: PICC INSERTION; FLUORO/CV PLACEMENT; U/S GUIDE FOR VASCULAR ACCESS COMPLETED DATE/TIME: 07/12/2018 2:49 pm REASON FOR STUDY: home health abx treatment; IV ABX; IV ACCESS COMPARISON: Chest films 06/21/2018 FLUOROSCOPY TIME: 18 seconds 1 digital fluoroscopic image and 1 ultrasound images saved to PACS. TECHNIQUE: Fluoroscopic and ultrasound guided PICC placement. LIMITATIONS: None. PROCEDURE: After written consent and assessment were obtained, the patient was brought into the fluo roscopy room and placed supine on the table. Ultrasound evaluation of potential access sites were per formed. After successfully identifying a patent left basilic vein, the left arm was prepped and drape d in a sterile fashion along with the ultrasound probe. The entry site was anesthetized with 1% lidoc pancho. A 21 gauge 7 cm needle was advanced through the skin and into the basilic vein under live ultra sound guidance. An ultrasound image was saved to PACS confirming access site. A .018 guide wire was then inserted through the needle and into the venous system. The needle was then removed and an 11 b lade scalpel was used to make a 1cm skin incision. A 5 fr peel-away sheath was advanced over the wir e and into the venous system. A measurement was then made using the existing wire and live fluoroscop ic guidance. The wire was then removed and trimmed. The PICC was advanced through the peel-away sheat h and into the venous system. The peel-away sheath was removed and the catheter was adhered to the pa tients arm with a stat lock. The catheter was then aspirated and flushed and a sterile bandage was pl aced over the access site. A fluoroscopic spot image was saved to PACS confirming the catheter tip w ithin the superior vena cava. IMPRESSION: SUCCESSFUL PLACEMENT OF A 5 FR DUAL LUMEN 39 CM PICC IN THE LEFT BASILIC VEIN. COMMENT: Patient medication list reviewed: Yes- Quality ID# [id number]:Eligible professional attests to doc umenting in the medical record they obtained, updated, or reviewed the patient's current medications. . Quality ID 145: Final reports for procedures using fluoroscopy that document radiation exposure adri joanne, or exposure time and number of fluorographic images (if radiation exposure indices are not avail able) Quality ID #76: The patient was prepped and draped using maximum sterile barrier technique including cap, mask, sterile gown, sterile gloves, a large sterile sheet, hand hygiene, and 2% Chlorhexidine fo r cutaneous antisepsis. When ultrasound is used, sterile ultrasound techniques are followed requiring sterile gel and sterile probes. TECHNICAL DOCUMENTATION: JOB ID: [id number] [employer]- All Rights Reserved rev-01/15 Reading location - IP/workstation name: [email or web address] [id number]
--- NOTE | 2018-07-12 15:26 | Progress Note ---
Provider Note Provider Note: called and spoke with TEO Villasenor from [facility]. she went over the case with me- she reviewed patients labs, meds, procedures and current medical problems. she recommends IV vanco daily for 6 weeks and Cipro 750mg BID for 6 weeks total therapy. due to use of Cipro she recommends no concurrent use of chelating substances like Iron or calcium pills to be given at the times time with Cipro. Iron and calcium dosing schedules can be changed to different times of the day
--- NOTE | 2018-07-12 16:49 | Progress Note ---
Provider Note Provider Note: ID Consult Note Asked to provide antibiotic management recommendations for Shirley Mahmood, a 62 year old woman admitted initially by her Orthopaedic Surgeon for early periprosthetic hip joint infection, now s/p removal of the prosthesis and implantation of a spacer (2 stage exchange). Pt not seen or examined. Pt discussed with her hospitalist Dr Mendez via telephone. Pt had L femoral neck fx causing her presentation to the ED on 06/19/18, and she underwent L hip arthroplasty to treat this. She had post-operative hypotension and required ICU stay but was discharged subsequently and followed up with Orthopaedic Surgery, at which time she was noted to have L acetabular fx , small L pelvic hematoma, and protrusio acetabula requiring revision. Pt was admitted on 06/04. She ESR was 115 and CRP was 39.7. She was taken to the OR where a "large amount of chocolate milk type fluid" was encountered upon incision into subcutaneous tissue. Frozen section revealed evidence of acute inflammation, and cultures were taken in the OR. Unfortunately, these cultures grew no bacteria, and none were seen on Gram stain. Impression: L periprosthetic hip infection, 2 stage revision (s/p removal of hardware, implantation of spacer), with negative cultures - With elevated inflammatory markers and intraoperative findings, pt may indeed have an early periprosthetic infection. The patient received at least one day of cefepime prior to cultures being taken, which potentially could obscure or adversely affect the culture yield. - In this setting, I think that the most prudent way of proceeding is to treat the patient for the most common potential causes of prosthetic joint infection ( Gram positive cocci such as Staph species and to a lesser extent Strep species and aerobic Gram negative bacilli). - Goal vancomycing troughs vary depending on the nature of the infection and the organism involved. Without MRSA being identified, it is difficult to justify pushing up the dose of vancomycin to achieve troughs of 15-20, which are associated with greater risk for nephrotoxicity. Recommendations - Recommend continuing IV vancomycin dosed with the assistance of a clinical pharmacist, to achieve goal troughs of 10-15, plus PO Cipro 750 mg BID. Vancomycin trough, CBC, and CMP should be monitored at least weekly. Inflammatory markers ESR and CRP can be monitored periodically during therapy. Suggest treating the patient for 6 weeks; anticipated end date Aug 18. - Daptomycin 500 mg IV daily can be an alternative to vancomycin (monitor CPK in addition to CBC, CMP and inflammatory markers) to be given with Cipro 750 mg BID PO. However, daptomycin is more expensive typically. Also, if daptomycin is used, atorvastatin may need to be held unless absolutely necessary; if statin therapy is necessary, then consider switch to pravastatin 40 mg (since pravastatin may have less associated myopathy risk than atorvastatin) and monitor twice weekly CPK. - Recommend scheduling any multivalent cations containing medications (iron, magnesium, calcium or zinc supplements or multivitamin, Tums, etc.) to avoid coadministration with Cipro, since multivalent cations will chelate and reduce exposure to Cipro. For Ms. Mahmood, her iron supplementation can be taken at noon to avoid overlapping with BID Cipro. Lucio Hinojosa MD [facility] Infectious Diseases pager [phone]
[2018-07-12] MEDS: CEFTRIAXONE SODIUM 2,000 MG in DEXTROSE 5%-WATER 100 ML IV SCH (17:41)
[2018-07-12] MEDS: QUETIAPINE FUMARATE 100 MG TABLET PO SCH (23:07)
[2018-07-12] MEDS: ATORVASTATIN CALCIUM 20 MG TABLET PO SCH (23:07)
[2018-07-13] MEDS ORDERED: NORMAL SALINE 10 ML SDV (AFTER EACH USE) IV PRN ×2 (01:07→08:34)
[2018-07-13] MEDS: OXYCODONE HCL IR 5 MG TABLET PO PRN ×2 (06:08→15:37)
[2018-07-13] MEDS: NORMAL SALINE 10 ML SDV (SCHEDULED) IV SCH ×2 (09:18→21:47)
[2018-07-13] MEDS: FERROUS SULFATE 325 MG TABLET PO SCH (09:18)
[2018-07-13] MEDS: ENOXAPARIN SODIUM INJ 30 MG/0.3 ML DISP.SYRIN SUBCUT SCH ×2 (09:18→21:47)
[2018-07-13] MEDS: POLYETHYLENE GLYCOL 3350 POWDER 17 GM/1 PACKET PO SCH (09:21)
[2018-07-13] MEDS: CHLORPROMAZINE HCL 10 MG TABLET PO SCH ×4 (09:36→21:46)
[2018-07-13] MEDS ORDERED: NORMAL SALINE 10 ML SDV (SCHEDULED) IV SCH (10:00)
[2018-07-13] MEDS: VANCOMYCIN HCL 1,250 MG in DEXTROSE 5%-WATER 250 ML IV SCH (11:00)
[2018-07-13] MEDS: INSULIN LISPRO 100 UNIT/ML 3 ML VIAL SUBCUT PRN (13:03)
--- NOTE | 2018-07-13 19:00 | PDOC PROGRESS REPORT ---
Subjective Progress Note for:: 07/13/18 - Seen on rounds this afternoon Subjective:: Patient tells me that she is doing much better today and has no acute complaints. I discussed about her antibiotic management going forward. Reason For Visit: MECHANICAL COMPLICATION OF LEFT HIP Physical Exam Vital Signs: Temp Pulse Resp BP Pulse Ox 97.9 F 88 14 115/63 96 07/13/18 16:15 07/13/18 16:15 07/13/18 16:15 07/13/18 16:15 07/13/18 16:15 Intake & Output 07/12/18 07/13/18 07/14/18 06:59 06:59 06:59 Intake Total 2237 1349 1077 Output Total 2200 2400 Balance 37 -1051 1077 Weight 155 lb 3.287 oz 157 lb 6.561 oz General appearance: PRESENT: no acute distress Head exam: PRESENT: atraumatic, normocephalic Eye exam: PRESENT: EOMI, PERRLA. ABSENT: scleral icterus Ear exam: PRESENT: normal external ear exam Mouth exam: PRESENT: tongue midline Neck exam: ABSENT: tracheal deviation Respiratory exam: PRESENT: clear to auscultation yasmeen, symmetrical Cardiovascular exam: PRESENT: +S1, +S2 Pulses: PRESENT: +2 pedal pulses bilateral Extremities exam: ABSENT: pedal edema Musculoskeletal exam: PRESENT: tenderness - Left hip impingement palpation- dressing noted-C/D/I Neurological exam: PRESENT: alert, awake, oriented to person, oriented to place , oriented to time, oriented to situation, CN II-XII grossly intact Skin exam: PRESENT: dry, warm Results Laboratory Results: 07/10/18 04:33 07/12/18 04:32 Impressions: Pelvis CT 07/05/18 14:53 IMPRESSION: Left left acetabular fracture as described. Small left pelvic hematoma. Guidance Fluoroscopy 07/12/18 00:00 IMPRESSION: SUCCESSFUL PLACEMENT OF A 5 FR DUAL LUMEN 39 CM PICC IN THE LEFT BASILIC VEIN. Interventional Vascular Procedure 07/12/18 00:00 IMPRESSION: SUCCESSFUL PLACEMENT OF A 5 FR DUAL LUMEN 39 CM PICC IN THE LEFT BASILIC VEIN. PICC Line Insertion 07/12/18 00:00 IMPRESSION: SUCCESSFUL PLACEMENT OF A 5 FR DUAL LUMEN 39 CM PICC IN THE LEFT BASILIC VEIN. Assessment & Plan - Diagnosis (1) Mechanical complication associated with orthopedic device Qualifiers: Encounter type: subsequent encounter Qualified Code(s): T84.498D - Other mechanical complication of other internal orthopedic devices, implants and grafts, subsequent encounter Is this a current diagnosis for this admission?: Yes (2) UTI (urinary tract infection) Is this a current diagnosis for this admission?: Yes (3) ESTHER (acute kidney injury) Is this a current diagnosis for this admission?: Yes (4) Hyperkalemia Is this a current diagnosis for this admission?: Yes (5) Left hip pain Is this a current diagnosis for this admission?: Yes (6) Hyperlipidemia Qualifiers: Hyperlipidemia type: unspecified Qualified Code(s): E78.5 - Hyperlipidemia , unspecified Is this a current diagnosis for this admission?: Yes - Time Time Spent with patient: Less than 15 minutes - Plan Summary Plan Summary: Left hip -I discussed with patient about working with physical therapy and encouraged early ambulation. She understands but tells me that it hurts when she moves her hip. I told her that it will hurt at first but it will improve as she continues to work with physical therapy. Revision of left hip arthroplasty completed on 07/07/18. concern was for infection of previous prosthesis on 05/2018. patient had left femoral neck fracture with arthroplasty in 05/2018 and returned to hospital for revision I have spoken [place] infectious disease [place] [facility] [place] to start on Cipro 750 mg twice daily and continue vancomycin. Given that there was a hardware infection-recommendation is to continue with antibiotic for 6 weeks. I have started on Cipro from [facility]. A PICC line has been placed yesterday. As far as I understand she will be discharged to rehab but patient is considering going home with antibiotics. Case management is aware and is working with patient. Please also see provider note by regarding antibiotic recommendations. UTI- on antibiotics as mentioned above. UCx has grown enterobacter so far. ESTHER- -stable-higher than normal Cr- not sure if this is Acute or chronic- no prior diagnosis. i think she might have ?CKD 3. will monitor for now- might need to follow up with PCP and discuss this further. Hyperkalemia- resolved- she remains asymptomatic. did give her meds yesterday monitor for now
[2018-07-13] MEDS: QUETIAPINE FUMARATE 100 MG TABLET PO SCH (21:46)
[2018-07-13] MEDS: ATORVASTATIN CALCIUM 20 MG TABLET PO SCH (21:47)
[2018-07-14] MEDS: FERROUS SULFATE 325 MG TABLET PO SCH (08:05)
[2018-07-14] MEDS: NORMAL SALINE 10 ML SDV (SCHEDULED) IV SCH (09:38)
[2018-07-14] MEDS: CHLORPROMAZINE HCL 10 MG TABLET PO SCH ×3 (09:38→17:03)
[2018-07-14] MEDS: ENOXAPARIN SODIUM INJ 30 MG/0.3 ML DISP.SYRIN SUBCUT SCH (09:38)
[2018-07-14] MEDS: POLYETHYLENE GLYCOL 3350 POWDER 17 GM/1 PACKET PO SCH (09:39)
[2018-07-14] MEDS: OXYCODONE HCL IR 5 MG TABLET PO PRN (09:41)
[2018-07-14] MEDS ORDERED: CIPROFLOXACIN HCL 750 MG TABLET PO SCH (10:00)
[2018-07-14] MEDS: VANCOMYCIN HCL 1,250 MG in DEXTROSE 5%-WATER 250 ML IV SCH (11:18)
[2018-07-14 12:58] VITALS: BP 129/48
[2018-07-14] MEDS: INSULIN LISPRO 100 UNIT/ML 3 ML VIAL SUBCUT PRN (13:58)
== END 2018-07-14 18:10 | disposition home health service (06) | DRG 464 ==
LOC: 4S 13:08
PROVIDERS: ADMIT Orthopaedic Surgery; ATTEND Orthopaedic Surgery
PROC: 0SHB08Z Insertion of Spacer into Left Hip Joint, Open Approach (ICD-10-PCS; 2018-07-07)
PROC: 0SPB0JZ Removal of Synthetic Substitute from Left Hip Joint, Open Approach (ICD-10-PCS; principal; 2018-07-07 11:00)
DX: T84.031A Mechanical loosening of internal left hip prosthetic joint, initial encounter (principal); N17.9 Acute kidney failure, unspecified; N39.0 Urinary tract infection, site not specified; T84.52XA Infection and inflammatory reaction due to internal left hip prosthesis, initial encounter; E87.5 Hyperkalemia; E11.9 Type 2 diabetes mellitus without complications; E78.5 Hyperlipidemia, unspecified; F20.9 Schizophrenia, unspecified; Z87.891 Personal history of nicotine dependence; Z79.4 Long term (current) use of insulin; Z79.899 Other long term (current) drug therapy; Z88.8 Allergy status to other drugs, medicaments and biological substances
CPT/HCPCS: 01214; 36415; 36569; 72192; 76937; 77001; 80048; 80053; 80202; 81001; 82962; 83735; 84132; 85025; 85610; 85652; 85730; 86140; 86850; 86900; 86901; 87070; 87075; 87086; 87088; 87186; 87205; 88305; 88331; 93005; 93010; C1713; G8978-GP; G8979-GP; J0131; J0171; J0610; J0696; J0713; J1100; J1642; J1650; J1815; J2250; J2270; J2370; J2405; J2704; J3010; J3370; J3490; J7030; J7060; J7120

== ENCOUNTER → 2018-09-09 | Outpatient (CLI) | payer MEDICARE ==
[2018-09-09 12:49] LABS: ABSOLUTE EOSINOPHILS # (AUTO) 0.3 10^3/uL (0.0-0.6); ABSOLUTE LYMPHOCYTES (AUTO) 1.9 10^3/uL (0.5-4.7); ABSOLUTE MONOCYTES (AUTO) 0.8 10^3/uL (0.1-1.4); ABSOLUTE NEUT (AUTO) 6.4 10^3/uL (1.7-8.2); BASOPHILS % (AUTO) 0.4 % (0-2); EOSINOPHILS % (AUTO) 3.6 % (0-6); HEMATOCRIT 37.4 % (36.0-47.0); HEMOGLOBIN 12.4 g/dL (12.0-15.5); LYMPHOCYTES % (AUTO) 20.1 % (13-45); MEAN CORPUSCULAR HEMOGLOBIN 31.5 pg (27.0-33.4); MEAN CORPUSCULAR HGB CONC 33.1 g/dL (32.0-36.0); MEAN CORPUSCULAR VOLUME 95 fl (80-97); MONOCYTES % (AUTO) 8.7 % (3-13); PLATELET COUNT 314 10^3/uL (150-450); RED BLOOD COUNT 3.93 10^6/uL (3.72-5.28); RED CELL DISTRIBUTION WIDTH 15.2 % (11.5-14.0); SEGMENTED NEUTROPHILS % (AUTO) 67.2 % (42-78); TOTAL CELLS COUNTED % (AUTO) 100 %; WHITE BLOOD COUNT 9.6 10^3/uL (4.0-10.5)
--- NOTE | 2018-09-09 12:50 | EKG REPORT ---
SEVERITY:- ABNORMAL ECG - SINUS TACHYCARDIA BORDERLINE INFERIOR Q WAVES MINIMAL ST DEPRESSION, LATERAL LEADS INCREASED ST ELEVATIONS IN INFERIOR LEADS, COMPARED TO 07/05/18 EKG, NEED CLINICAL CORRELATION. : Confirmed by: Vito Garces MD 09-Sep-2018 12:50:18
[2018-09-09 13:11] LABS: ANION GAP 11 (5-19); BLOOD UREA NITROGEN 36 mg/dL (7-20); CALCIUM 10.8 mg/dL (8.4-10.2); CARBON DIOXIDE 25 mmol/L (22-30); CHLORIDE 103 mmol/L (98-107); GLUCOSE 306 mg/dL (75-110); POTASSIUM 4.5 mmol/L (3.6-5.0); SODIUM 138.7 mmol/L (137-145)
--- NOTE | 2018-09-09 14:24 | RADIOLOGY REPORT (SQ) ---
EXAM DESCRIPTION: CHEST PA/LATERAL COMPLETED DATE/TIME: 09/09/2018 2:17 pm REASON FOR STUDY: PRE-OP COMPARISON: 07/12/2018 06/21/2018 EXAM PARAMETERS: NUMBER OF VIEWS: two views TECHNIQUE: Digital Frontal and Lateral radiographic views of the chest acquired. RADIATION DOSE: NA LIMITATIONS: none FINDINGS: LUNGS AND PLEURA: Hyperexpansion of the lungs. No infiltrate, effusion, or mass. MEDIASTINUM AND HILAR STRUCTURES: No masses or contour abnormalities. HEART AND VASCULAR STRUCTURES: Heart normal size. No evidence for failure. BONES: No acute findings. HARDWARE: PICC line on the left. OTHER: No other significant finding. IMPRESSION: Chronic lung changes with no acute cardiopulmonary findings. TECHNICAL DOCUMENTATION: JOB ID: [id number] [employer]- All Rights Reserved Reading location - IP/workstation name: [email or web address]
[2018-09-10 12:11] LABS: APPEARANCE,URINE SLIGHTLY-CLOUDY; BILIRUBIN,URINE NEGATIVE (NEGATIVE); CALCIUM OXALATE CRYSTALS,URINE MODERATE /HPF; COLOR,URINE YELLOW; GLUCOSE, URINE NEGATIVE (NEGATIVE); KETONES,URINE NEGATIVE (NEGATIVE); LEUKOCYTE ESTERASE,URINE TRACE (NEGATIVE); NITRITE,URINE NEGATIVE (NEGATIVE); PROTEIN,URINE NEGATIVE (NEGATIVE); URINE SPECIFIC GRAVITY 1.014; UROBILINOGEN,URINE NEGATIVE mg/dL (<2.0)
== END ==
LOC: OD 11:42
PROVIDERS: ATTEND Orthopaedic Surgery
DX: Z01.810 Encounter for preprocedural cardiovascular examination (principal); Z01.812 Encounter for preprocedural laboratory examination; Z01.818 Encounter for other preprocedural examination; E11.9 Type 2 diabetes mellitus without complications
CPT/HCPCS: 36415; 71046; 80048; 81001; 83036; 85025; 93005; 93010

== ENCOUNTER 2018-09-29 05:32 | Inpatient (IN) | payer MEDICARE ==
[~2018-09-29 05:32] MED LIST: BUPIVACAINE INJ/PF LIPOSOME/PF 266 MG/20 ML SDV IJ PRN; CEFAZOLIN INJ 1 GM VIAL IV PRN; CEFAZOLIN INJ 1 GM VIAL ONE; IBUPROFEN 800 MG/NS 250 ML IV PRN; LACTATED RINGERS 1000 ML IV PRN; LANSOPRAZOLE 15 MG TAB.RAP.DR ONE; LANSOPRAZOLE 15 MG TAB.RAP.DR PO PRN; OXYCODONE HCL SR 10 MG TABLET PO ONE; OXYCODONE HCL SR 10 MG TABLET PO PRN; VANCOMYCIN HCL 1,000 MG in DEXTROSE 5%-WATER 250 ML IV PRN
[2018-09-29] MEDS ORDERED: MIDAZOLAM 2 MG/2 ML INJ ONE (06:51)
[2018-09-29] MEDS ORDERED: PROPOFOL INJ 200 MG/20 ML VIAL IV ONE (06:52)
[2018-09-29] MEDS ORDERED: TRANEXAMIC ACID INJ/PF 1,000 MG/10 ML SDV IV ONE ×3 (06:52→12:35)
[2018-09-29] MEDS ORDERED: ONDANSETRON HCL INJ/PF 4 MG/2 ML SDV ONE (06:52)
[2018-09-29 06:57] LABS: FREE T3 3.41 pg/mL (2.77-5.27); FREE T4 (FREE THYROXINE) 1.52 ng/dL (0.78-2.19)
[2018-09-29 07:11] LABS: THYROID STIMULATING HORMONE 1.61 uIU/mL (0.47-4.68)
[2018-09-29] MEDS ORDERED: THROMBIN (BOVINE) TOPICAL 20000 UNIT VIAL ONE (07:11)
[2018-09-29] MEDS ORDERED: BUPIVACAINE HCL 0.5%-EPI 1:200000 INJ/PF 30 ML VIAL ONE (07:11)
[2018-09-29] MEDS ORDERED: EPHEDRINE SULFATE INJ 50 MG/1 ML AMPULE ONE (08:07)
[2018-09-29] MEDS ORDERED: VASOPRESSIN INJ 20 UNIT/1 ML VIAL ONE (08:25)
[2018-09-29] MEDS ORDERED: DIPHENHYDRAMINE HCL 50 MG/ML VIAL IV PRN ×3 (08:34→09:53)
[2018-09-29] MEDS ORDERED: PROMETHAZINE HCL INJ 25 MG/1 ML VIAL IV PRN (08:34)
[2018-09-29] MEDS ORDERED: FENTANYL CITRATE INJ/PF 100 MCG/2 ML AMPUL IV PRN ×2 (08:34)
[2018-09-29] MEDS ORDERED: MEPERIDINE HCL/PF INJ 25 MG/1 ML DISP.SYRIN IV PRN (08:34)
[2018-09-29] MEDS ORDERED: MAG HYDROX/AL HYDROX/SIMETH SUSP 30 ML UDCUP PO PRN (09:07)
[2018-09-29] MEDS ORDERED: ZOLPIDEM TARTRATE 5 MG TABLET PO PRN (09:07)
[2018-09-29] MEDS ORDERED: RINGERS SOLUTION,LACTATED 1,000 ML IV PRN (09:07)
[2018-09-29] MEDS ORDERED: MORPHINE SULFATE 10 MG/ML INJ IV PRN ×4 (09:07)
[2018-09-29] MEDS ORDERED: ONDANSETRON 4 MG TAB.RAPDIS PO PRN ×2 (09:07→10:00)
[2018-09-29] MEDS ORDERED: ACETAMINOPHEN 325 MG TABLET PO PRN (09:07)
--- NOTE | 2018-09-29 09:07 | Operative Report ---
Operative Report DATE OF SURGERY: 09/29/18 PREOPERATIVE DIAGNOSIS: Acetabular failure acetabular fracture. Mechanical anayeli lure total hip arthroplasty OPERATION: Revision left hip arthroplasty. Sciatic neural lysis SURGEON: JUDITH MOTA ANESTHESIA: Spinal TISSUE REMOVED OR ALTERED: Cultures to microbiology. Frozen section of pathology ESTIMATED BLOOD LOSS: 200 PROCEDURE: Implants used: [place] titanium hemispherical cup, 62 mm [place] Cristiano modular mormonism stem 155 mm x 16 mm, 23 mm proximal body standard, 36 mm chrome cobalt head +5 neck 36 mm flat cross-link polyethylene liner With the patient in a right lateral decubitus position on the operating table left lower extremity hunker prepped and draped in sterile fashion. Curvilinear incision made with a previous surgical approach. Upon entering the subfascial area there is a modest amount of what appears to be brown/serosanguineous fluid and this is sent for culture and sensitivity. Synovium is sent for frozen section and a diagnosis of return of chronic inflammation no evidence of acute inflammation. A decision was then made to proceed with the hip reconstruction. The sciatic nerve is traced in the sciatic notch down to the gluteal sling and protected throughout its course. Continued posterior approach ensues with the uncovering of the underlying cement spacer. This is removed piecemeal using an osteotome. The acetabular is then explored and appears to be in continuity. Its reamed using hemispherical reamers until 61 mm reamer is seated. Subsequent 62 mm revision try obtaining him hemispherical shell was impacted into position and secured with 2 screws proximally. A trial liner was placed and attention was next turned to the femur. The femoral canal is prepared using a canal finder followed by conical reamers until 16 mm conical reamer seated to a depth of approximately 165 mm. A [place] modular race modular mormonism stem 16 mm x 155 mm was then impacted into the canal. The proximal canal was prepared using the appropriate cylindrical reamers. A 23 mm standard trial body is impacted and a trial reduction was performed. A 5+5 mm head can be reduced well +10 mm cannot be. Trial implants removed. The final 23 mm proximal body is put into place and secured with a screw proximally and a torque wrench. The next millimeter cross- link polyethylene liner is impacted into the shell. A second trial reduction was performed with 36 mm +5 neck extension. This appears to re-create preoperative leg length and provides excellent anterior posterior stability. Hip was dislocated one more time. The final chrome cobalt head is impacted onto the trunnion. The hip is reduced. Wound is cindy care with pulse lavage and 3 L of normal saline containing bacitracin. Wound is then closed in layers interrupted Vicryl followed by nylon. A sterile compressive dressing was applied and the patient's return to PACU in satisfactory
[2018-09-29] MEDS ORDERED: VANCOMYCIN HCL 0 MG in DEXTROSE 5%-WATER 250 ML IV NR (09:45)
[2018-09-29] MEDS ORDERED: (PENDING PHARMACY ID) (Rosuvastatin Calcium [Crestor 5 Mg Tablet] 5 MG) PO SCH (10:00)
[2018-09-29] MEDS ORDERED: THIOTHIXENE 5 MG PO SCH ×2 (10:00→23:00)
[2018-09-29] MEDS ORDERED: MORPHINE IV PRN ×2 (10:00)
[2018-09-29] MEDS ORDERED: OXYCODONE HCL IR 5 MG TABLET PO PRN (10:00)
--- NOTE | 2018-09-29 10:57 | RADIOLOGY REPORT (SQ) ---
EXAM DESCRIPTION: PELVIS AP COMPLETED DATE/TIME: 09/29/2018 10:44 am REASON FOR STUDY: Post Op Long Cassette in PACU T84.091D [facility] COMPL OF INTERNAL LEFT HIP PROSTHESI S, SUBS EN COMPARISON: Left hip films 06/19/2018, 06/20/2018, 07/05/2018 NUMBER OF VIEWS: One view TECHNIQUE: AP Pelvis LIMITATIONS: None. FINDINGS: AP portable pelvis film, 2 cassettes. There has been revision of the femoral component of a left hip replacement with a long intramedullary nail in good alignment. Heterotopic ossification around the left greater trochanter. Healed left innominate bone fracture with new bone along the medial left acetabular wall. Remainder of the bony pelvis is osteopenic but otherwise intact. Superficial skin donald over the l eft gluteal region with postoperative soft tissue air. IMPRESSION: Post revision of the left hip replacement with a long femoral component, in good alignme nt. Old healed left innominate bone/medial acetabular fracture COMMENT: Pelvic fractures are often occult on plain radiographs. If strong clinical suspicion for f racture, recommend CT or MR. TECHNICAL DOCUMENTATION: JOB ID: [id number] [employer]- All Rights Reserved Reading location - IP/workstation name: [email or web address]
[2018-09-29] MEDS ORDERED: OXYCODONE HCL PO SCH (11:00)
[2018-09-29] MEDS ORDERED: DEXTROSE 50%-WATER SYRINGE 25 GM/50 ML DOSE IV PRN (11:30)
[2018-09-29] MEDS ORDERED: DEXTROSE 50%-WATER SYRINGE 12.5 GM/25 ML DOSE IV PRN (11:30)
[2018-09-29] MEDS ORDERED: GLUCAGON,HUMAN RECOMB 1 MG INJ IM PRN (11:30)
[2018-09-29] MEDS ORDERED: DEXTROSE 40% GEL 15 GM TUBE PO PRN (11:30)
[2018-09-29] MEDS ORDERED: DEXTROSE 40% GEL 15 GM TUBE X 2 PO PRN (11:30)
[2018-09-29] MEDS ORDERED: OXYCODONE HCL IR 5 MG TABLET ONE (11:35)
[2018-09-29] MEDS ORDERED: IBUPROFEN 800 MG in NORMAL SALINE 250 ML IV SCH (14:00)
[2018-09-29] MEDS: OXYCODONE HCL SR 10 MG TABLET PO SCH ×2 (15:23→21:50)
[2018-09-29] MEDS: ASPIRIN 81 MG TABLET, ENT COATED PO SCH (15:26)
[2018-09-29] MEDS: OXYCODONE HCL IR 5 MG TABLET PO PRN (15:27)
[2018-09-29] MEDS: SENNOSIDES/DOCUSATE 8.6-50 MG 1 EACH TABLET PO SCH ×2 (15:27→21:47)
[2018-09-29] MEDS: PRENATAL VITAMIN W DHA CAPSULE PO SCH (15:27)
[2018-09-29] MEDS: PREGABALIN 75 MG CAPSULE PO SCH ×2 (15:29→17:19)
[2018-09-29] MEDS: ACETAMINOPHEN INJ/PF 1000 MG/100 ML SDV IV SCH ×2 (17:16→21:47)
[2018-09-29] MEDS: INSULIN LISPRO 100 UNIT/ML 3 ML VIAL SUBCUT SCH ×2 (17:20→22:13)
[2018-09-29] MEDS ORDERED: SITAGLIPTIN PHOSPHATE 50 MG TABLET PO SCH (18:00)
[2018-09-29] MEDS ORDERED: (PENDING PHARMACY ID) (Linagliptin [Tradjenta] 5 MG) PO SCH (18:00)
[2018-09-29] MEDS: ATORVASTATIN CALCIUM 10 MG TABLET PO SCH (21:47)
[2018-09-29] MEDS: QUETIAPINE FUMARATE 100 MG TABLET PO SCH (21:53)
[2018-09-30] MEDS: LANSOPRAZOLE 30 MG TAB.RAP.DR PO SCH (05:38)
[2018-09-30] MEDS: ACETAMINOPHEN INJ/PF 1000 MG/100 ML SDV IV SCH ×3 (05:38→21:47)
[2018-09-30] MEDS ORDERED: LANSOPRAZOLE 30 MG TAB.RAP.DR PO SCH (06:00)
--- NOTE | 2018-09-30 06:51 | PDOC PROGRESS REPORT ---
Subjective Progress Note for:: 09/30/18 Reason For Visit: T84.091D [facility] COMPL OF INTERNAL LEFT HIP PROSTHESI 62-year-old white female postop day 1 status post left hip reconstruction. Patient with an uneventful postoperative course. Made excellent progress with physical therapy in light of her prolonged deconditioning preoperatively. Physical Exam Vital Signs: Temp Pulse Resp BP Pulse Ox 36.5 C 115 H 18 98/49 L 94 09/29/18 23:13 09/29/18 23:13 09/29/18 23:13 09/29/18 23:13 09/29/18 23:13 Intake & Output 09/28/18 09/29/18 09/30/18 06:59 06:59 06:59 Intake Total 9516 Output Total 4650 Balance 4866 Weight 76.6 kg Physical Exam: Middle-aged white female lying in bed. She is alert oriented and appropriate. General appearance: PRESENT: no acute distress, mild distress Respiratory exam: PRESENT: unlabored Cardiovascular exam: PRESENT: RRR Pulses: PRESENT: +1 pedal pulses bilateral Vascular exam: PRESENT: normal capillary refill GI/Abdominal exam: PRESENT: soft Rectal exam: PRESENT: deferred Extremities exam: PRESENT: other - Left hip dressing is clean dry and intact. Leg lengths are equal. Distal neurovascular examination is intact. Neurological exam: PRESENT: alert, awake, oriented to person, oriented to place, oriented to time, oriented to situation. ABSENT: motor sensory deficit Psychiatric exam: PRESENT: appropriate affect, normal mood. ABSENT: homicidal ideation, suicidal ideation Skin exam: PRESENT: dry, intact, warm. ABSENT: cyanosis, rash Results Laboratory Results: 09/29/18 16:26 09/29/18 09/29/18 09/29/18 06:13 06:13 16:26 Creatinine 1.57 H Est GFR ( Amer) 41 L Est GFR (Non-Af Amer) 33 L TSH 1.61 Free T4 1.52 Free T3 pg/mL 3.41 Blood Type O POSITIVE Antibody Screen NEGATIVE Impressions: Pelvis X-Ray 09/29/18 09:08 IMPRESSION: Post revision of the left hip replacement with a long femoral component, in good alignment. Old healed left innominate bone/medial acetabular fracture Status: Imported from PACS Assessment & Plan - Diagnosis (1) Mechanical complication associated with orthopedic device Qualifiers: Is this a current diagnosis for this admission?: Yes Plan: Continue to mobilize with physical therapy and weightbearing as tolerated basis. Continue empiric antibiotics for 5 days to cover while we await intraoperative cultures. Anticipate discharge home with home health services and DME. Main tain the PICC line for vascular access at this point. - Time Time Spent with patient: 15-24 minutes Anticipated discharge: Home with Homehealth Within: Other
[2018-09-30] MEDS: INSULIN LISPRO 100 UNIT/ML 3 ML VIAL SUBCUT SCH ×4 (07:51→21:46)
[2018-09-30] MEDS ORDERED: VANCOMYCIN HCL 1,000 MG in DEXTROSE 5%-WATER 250 ML IV SCH ×2 (08:00→10:00)
[2018-09-30 09:07] LABS: HEMATOCRIT 22.8 % (36.0-47.0); MEAN CORPUSCULAR HEMOGLOBIN 31.4 pg (27.0-33.4); MEAN CORPUSCULAR HGB CONC 33.3 g/dL (32.0-36.0); MEAN CORPUSCULAR VOLUME 94 fl (80-97); PLATELET COUNT 152 10^3/uL (150-450); RED BLOOD COUNT 2.43 10^6/uL (3.72-5.28); RED CELL DISTRIBUTION WIDTH 15.4 % (11.5-14.0); WHITE BLOOD COUNT 8.9 10^3/uL (4.0-10.5)
[2018-09-30 09:15] LABS: HEMOGLOBIN 7.6 g/dL (12.0-15.5)
[2018-09-30] MEDS: ASPIRIN 81 MG TABLET, ENT COATED PO SCH (09:15)
[2018-09-30] MEDS: PREGABALIN 75 MG CAPSULE PO SCH ×2 (09:15→21:42)
[2018-09-30] MEDS: OXYCODONE HCL SR 10 MG TABLET PO SCH ×2 (09:16→21:47)
[2018-09-30] MEDS: PRENATAL VITAMIN W DHA CAPSULE PO SCH (09:17)
[2018-09-30] MEDS: SENNOSIDES/DOCUSATE 8.6-50 MG 1 EACH TABLET PO SCH ×2 (09:17→21:42)
[2018-09-30 09:18] LABS: ANION GAP 6 (5-19); BLOOD UREA NITROGEN 21 mg/dL (7-20); CALCIUM 9.1 mg/dL (8.4-10.2); CARBON DIOXIDE 28 mmol/L (22-30); CHLORIDE 101 mmol/L (98-107); GLUCOSE 125 mg/dL (75-110); POTASSIUM 4.1 mmol/L (3.6-5.0); SODIUM 134.8 mmol/L (137-145)
[2018-09-30] MEDS: ALBUMIN HUMAN 12.5 GM/50 ML RTUINJ IV SCH ×2 (21:38→21:43)
[2018-09-30] MEDS: ATORVASTATIN CALCIUM 10 MG TABLET PO SCH (21:47)
[2018-09-30] MEDS: QUETIAPINE FUMARATE 100 MG TABLET PO SCH (21:48)
[2018-10-01] MEDS: ACETAMINOPHEN INJ/PF 1000 MG/100 ML SDV IV SCH (05:54)
[2018-10-01] MEDS: LANSOPRAZOLE 30 MG TAB.RAP.DR PO SCH (05:56)
--- NOTE | 2018-10-01 06:43 | PDOC DISCHARGE SUMMARY ---
General - Admit/Disc Date/PCP Admission Date/Primary Care Provider: 09/29/18 05:32 HOLDEN RHODES MD Discharge Date: 10/01/18 - Discharge Diagnosis (1) Mechanical complication associated with orthopedic device Is this a current diagnosis for this admission?: Yes (2) Acute blood loss as cause of postoperative anemia Is this a current diagnosis for this admission?: Yes - Additional Information Resuscitation Status: Full Code Home Medications: Linagliptin [Tradjenta] 5 mg PO QPM 06/19/18 Thiothixene 5 mg PO ASDIR 06/19/18 Quetiapine Fumarate [Seroquel 100 mg Tablet] 100 mg PO QHS tablet 06/28/18 Rosuvastatin Calcium [Crestor 5 mg Tablet] 5 mg PO DAILY 09/28/18 Tramadol HCl [Ultram 50 mg Tablet] 50 mg PO Q6HP PRN 09/28/18 Ciprofloxacin HCl [Cipro 500 mg Tablet] 500 mg PO BID 09/29/18 History of Present Illness History of Present Illness: EDITH MONTAGUE is a 62 year old female Patient is a 62-year-old white female initially presented with a left femoral neck fracture was treated with a total hip arthroplasty. This was complicated by intraoperative acetabular fracture and perioperative infection. Patient underwent resection arthroplasty with implantation of a spacer. She was treated with antibiotics in the M and in the infection was eradicated. She is now admitted for an elective reconstruction of the left hip. Hospital Course Hospital Course: Patient is admitted through the operating room she undergoes uncomplicated left hip revision arthroplasty. She tolerates procedure without complication. She is returned to floor in satisfactory condition. In spite of significant amount of deconditioning over the prior 2 months the patient makes excellent progress with physical therapy ambulating with a walker and pain is well controlled. At one point her postoperative hematocrit dropped to 22.8% and she received 2 units of packed red blood cells. She subsequently for discharge home with home health services and DME. Physical Exam Vital Signs: Temp Pulse Resp BP Pulse Ox 37.2 C 111 H 18 110/55 L 95 09/30/18 23:18 09/30/18 23:18 09/30/18 23:18 09/30/18 23:18 09/30/18 23:18 Intake & Output 09/29/18 09/30/18 10/01/18 06:59 06:59 06:59 Intake Total 9782 2591 Output Total 5300 Balance 4482 2591 Weight 76.1 kg 76.1 kg General appearance: PRESENT: no acute distress Head exam: PRESENT: normocephalic Respiratory exam: PRESENT: unlabored Cardiovascular exam: PRESENT: RRR Pulses: PRESENT: +1 pedal pulses bilateral Vascular exam: PRESENT: normal capillary refill GI/Abdominal exam: PRESENT: soft Rectal exam: PRESENT: deferred Extremities exam: PRESENT: other - Left hip dressing clean dry and intact. Leg lengths are equal. Distal neurovascular examination is intact. Neurological exam: PRESENT: alert, awake, oriented to person, oriented to place, oriented to time, oriented to situation. ABSENT: motor sensory deficit Psychiatric exam: PRESENT: appropriate affect, normal mood. ABSENT: homicidal ideation, suicidal ideation Skin exam: PRESENT: dry, intact, warm. ABSENT: cyanosis, rash Results Laboratory Results: 09/30/18 08:30 09/30/18 08:30 09/29/18 09/30/18 09/30/18 06:13 08:30 08:30 WBC 8.9 RBC 2.43 L Hgb 7.6 L Hct 22.8 L MCV 94 MCH 31.4 MCHC 33.3 RDW 15.4 H Plt Count 152 Sodium 134.8 L Potassium 4.1 Chloride 101 Carbon Dioxide 28 Anion Gap 6 BUN 21 H Creatinine 1.36 H Est GFR ( Amer) 48 L Est GFR (Non-Af Amer) 40 L Glucose 125 H Calcium 9.1 Blood Type O POSITIVE Antibody Screen NEGATIVE Impressions: Pelvis X-Ray 09/29/18 09:08 IMPRESSION: Post revision of the left hip replacement with a long femoral component, in good alignment. Old healed left innominate bone/medial acetabular fracture Status: Imported from PACS Qualifiers - * PATIENT BEING DISCHARGED WITH ANY OF THE FOLLOWING DIAGNOSIS: No VTE patient discharged on overlapping Therapy?: Yes Plan Discharge Plan: Plan for discharge home with home health services and DME. Follow-up with Dr. Lerma and [facility] for surgery in 2 weeks for staple removal.
[2018-10-01 07:13] LABS: HEMATOCRIT 37.1 % (36.0-47.0); MEAN CORPUSCULAR HEMOGLOBIN 30.9 pg (27.0-33.4); MEAN CORPUSCULAR HGB CONC 34.3 g/dL (32.0-36.0); PLATELET COUNT 140 10^3/uL (150-450); RED BLOOD COUNT 4.11 10^6/uL (3.72-5.28); RED CELL DISTRIBUTION WIDTH 16.2 % (11.5-14.0); WHITE BLOOD COUNT 11.8 10^3/uL (4.0-10.5)
[2018-10-01 07:15] LABS: HEMOGLOBIN 12.7 g/dL (12.0-15.5)
[2018-10-01 07:16] LABS: MEAN CORPUSCULAR VOLUME 90 fl (80-97)
[2018-10-01] MEDS: INSULIN LISPRO 100 UNIT/ML 3 ML VIAL SUBCUT SCH ×4 (09:13→21:48)
[2018-10-01] MEDS: ASPIRIN 81 MG TABLET, ENT COATED PO SCH (09:14)
[2018-10-01] MEDS: PRENATAL VITAMIN W DHA CAPSULE PO SCH (09:14)
[2018-10-01] MEDS: SENNOSIDES/DOCUSATE 8.6-50 MG 1 EACH TABLET PO SCH ×2 (09:14→18:14)
[2018-10-01] MEDS: PREGABALIN 75 MG CAPSULE PO SCH ×2 (09:14→18:14)
[2018-10-01] MEDS: VANCOMYCIN HCL 1,250 MG in DEXTROSE 5%-WATER 250 ML IV SCH (10:15)
[2018-10-01] MEDS: QUETIAPINE FUMARATE 100 MG TABLET PO SCH (21:49)
[2018-10-01] MEDS: ATORVASTATIN CALCIUM 10 MG TABLET PO SCH (21:49)
[2018-10-02] MEDS: LANSOPRAZOLE 30 MG TAB.RAP.DR PO SCH (05:44)
[2018-10-02 05:57] LABS: HEMATOCRIT 33.1 % (36.0-47.0); HEMOGLOBIN 11.3 g/dL (12.0-15.5); MEAN CORPUSCULAR HGB CONC 34.2 g/dL (32.0-36.0); MEAN CORPUSCULAR VOLUME 91 fl (80-97); PLATELET COUNT 157 10^3/uL (150-450); RED BLOOD COUNT 3.65 10^6/uL (3.72-5.28); RED CELL DISTRIBUTION WIDTH 16.2 % (11.5-14.0); WHITE BLOOD COUNT 9.9 10^3/uL (4.0-10.5)
--- NOTE | 2018-10-02 07:17 | PDOC PROGRESS REPORT ---
Subjective Progress Note for:: 10/02/18 Reason For Visit: T84.091D [facility] COMPL OF INTERNAL LEFT HIP PROSTHESI 62-year-old white female status post left hip reconstruction. Patient is complaining of urinary urgency. There is some drainage on the dressing yesterday so the dressing was changed. Computer indicates a tachycardia of 125 beats a minute. This apparently is a mistake. Physical Exam Vital Signs: Temp Pulse Resp BP Pulse Ox 37.6 C 125 H 19 116/50 L 94 10/01/18 23:25 10/01/18 23:25 10/01/18 23:25 10/01/18 23:25 10/01/18 23:25 Intake & Output 10/01/18 10/02/18 10/03/18 06:59 06:59 06:59 Intake Total 2591 1633 Balance 2591 1633 Weight 76.1 kg 77.8 kg General appearance: PRESENT: no acute distress Head exam: PRESENT: normocephalic Respiratory exam: PRESENT: unlabored Cardiovascular exam: PRESENT: RRR Pulses: PRESENT: +1 pedal pulses bilateral Vascular exam: PRESENT: normal capillary refill GI/Abdominal exam: PRESENT: soft Rectal exam: PRESENT: deferred Extremities exam: PRESENT: other - Left hip dressing is clean dry and intact. Leg lengths are equal. Neurological exam: PRESENT: alert, awake, oriented to person, oriented to place, oriented to time, oriented to situation. ABSENT: motor sensory deficit Skin exam: PRESENT: dry, intact, warm. ABSENT: cyanosis, rash Results Laboratory Results: 10/02/18 05:47 10/01/18 05:59 10/01/18 10/01/18 10/02/18 05:59 05:59 05:47 WBC 11.8 H 9.9 RBC 4.11 3.65 L Hgb 12.7 D 11.3 L Hct 37.1 33.1 L MCV 90 D 91 MCH 30.9 31.0 MCHC 34.3 34.2 RDW 16.2 H 16.2 H Plt Count 140 L 157 Creatinine 1.37 H Est GFR ( Amer) 47 L Est GFR (Non-Af Amer) 39 L Impressions: Pelvis X-Ray 09/29/18 09:08 IMPRESSION: Post revision of the left hip replacement with a long femoral component, in good alignment. Old healed left innominate bone/medial acetabular fracture Status: Imported from PACS Assessment & Plan - Diagnosis (1) Mechanical complication associated with orthopedic device Qualifiers: Is this a current diagnosis for this admission?: Yes Plan: Patient making excellent progress with physical therapy. (2) Acute blood loss as cause of postoperative anemia Is this a current diagnosis for this admission?: Yes Plan: Posttransfusion hematocrit is 33% (3) Urinary urgency Is this a current diagnosis for this admission?: Yes Plan: UA has been ordered. - Time Time Spent with patient: 15-24 minutes Anticipated discharge: Home with Homehealth Within: within 24 hours
[2018-10-02] MEDS: INSULIN LISPRO 100 UNIT/ML 3 ML VIAL SUBCUT SCH ×2 (08:07→14:07)
[2018-10-02] MEDS: OXYCODONE HCL IR 5 MG TABLET PO PRN (08:21)
[2018-10-02] MEDS: PRENATAL VITAMIN W DHA CAPSULE PO SCH (09:52)
[2018-10-02] MEDS: SENNOSIDES/DOCUSATE 8.6-50 MG 1 EACH TABLET PO SCH (09:52)
[2018-10-02] MEDS: ASPIRIN 81 MG TABLET, ENT COATED PO SCH (09:52)
[2018-10-02] MEDS: VANCOMYCIN HCL 1,250 MG in DEXTROSE 5%-WATER 250 ML IV SCH (09:53)
[2018-10-02] MEDS: PREGABALIN 75 MG CAPSULE PO SCH (09:53)
[2018-10-02 10:59] LABS: APPEARANCE,URINE CLEAR; BILIRUBIN,URINE NEGATIVE (NEGATIVE); COLOR,URINE YELLOW; GLUCOSE, URINE NEGATIVE (NEGATIVE); KETONES,URINE NEGATIVE (NEGATIVE); LEUKOCYTE ESTERASE,URINE NEGATIVE (NEGATIVE); NITRITE,URINE NEGATIVE (NEGATIVE); PROTEIN,URINE NEGATIVE (NEGATIVE); URINE SPECIFIC GRAVITY 1.005; UROBILINOGEN,URINE NEGATIVE mg/dL (<2.0)
[2018-10-02 15:55] VITALS: BP 101/87
== END 2018-10-02 17:30 | disposition home health service (06) | DRG 940 ==
LOC: INOR 05:32 → 4S 13:00
PROVIDERS: ADMIT Orthopaedic Surgery; ATTEND Orthopaedic Surgery
PROC: 0SPB0JZ Removal of Synthetic Substitute from Left Hip Joint, Open Approach (ICD-10-PCS; 2018-09-29)
PROC: 0SRB02Z Replacement of Left Hip Joint with Metal on Polyethylene Synthetic Substitute, Open Approach (ICD-10-PCS; principal; 2018-09-29 07:30)
PROC: 30233N1 Transfusion of Nonautologous Red Blood Cells into Peripheral Vein, Percutaneous Approach (ICD-10-PCS; 2018-09-30)
DX: T84.091D Other mechanical complication of internal left hip prosthesis, subsequent encounter (principal); D62 Acute posthemorrhagic anemia; E11.22 Type 2 diabetes mellitus with diabetic chronic kidney disease; F20.9 Schizophrenia, unspecified; I12.9 Hypertensive chronic kidney disease with stage 1 through stage 4 chronic kidney disease, or unspecified chronic kidney disease; N18.9 Chronic kidney disease, unspecified; D63.1 Anemia in chronic kidney disease; E78.5 Hyperlipidemia, unspecified; Z87.891 Personal history of nicotine dependence; M25.562 Pain in left knee; Z96.642 Presence of left artificial hip joint; R39.15 Urgency of urination; Z79.84 Long term (current) use of oral hypoglycemic drugs
CPT/HCPCS: 01215; 36415; 36430; 72170; 80048; 81001; 82565; 82962; 84439; 84443; 84481; 85027; 86850; 86900; 86901; 86920; 87070; 87075; 87205; 88305; 88331; 94799; C1713; C1776; J0131; J0690; J1741; J1815; J2250; J2405; J2704; J3370; J3490; J7050; J7060; J7120; P9016; P9047

== ENCOUNTER 2018-10-11 12:03 | Emergency (ER) | payer MEDICARE ==
--- NOTE | 2018-10-11 12:27 | ER Document Report ---
ED Medical Screen (RME) - General Chief Complaint: Skin Problem Stated Complaint: WOUND CHECK Time Seen by Provider: 10/11/18 12:15 Primary Care Provider: HOLDEN RHODES MD [Primary Care Provider] - Follow up as needed Mode of Arrival: Wheelchair Information source: Patient Notes: 62-year-old female presents emergency department with bleeding from the left hip. She states that she had a left hip replacement done on 09-29-[address] Lerma. She states that this morning she has been having bleeding from the donald. She states that she has had a low-grade fever. She states the material draining from the donald is reddish in color but does have a foul odor. Family contacted Dr. Lerma's office and was told to go to the emergency department for evaluation. Patient has an outpatient appointment scheduled with him for tomorrow. I have greeted and performed a rapid initial assessment of this patient. A comprehensive ED assessment and evaluation of the patient, analysis of test results and completion of the medical decision making process will be conducted by additional ED providers. PHYSICAL EXAMINATION: GENERAL: Well-appearing, well-nourished and in no acute distress. HEAD: Atraumatic, normocephalic. EYES: Pupils equal round extraocular movements intact, conjunctiva are normal. ENT: Nares patent NECK: Normal range of motion LUNGS: No respiratory distress Musculoskeletal: Normal range of motion. Lawrence in tact to the L hip. No active bleeding. No purulent drainage. TRAVEL OUTSIDE OF THE [place] IN LAST 30 DAYS: No - Related Data Allergies/Adverse Reactions: merbromin [From Mercurochrome] Allergy (Verified 09/15/18 12:40) Past Medical History - Social History Chew tobacco use (# tins/day): No Frequency of alcohol use: None - Past Medical History Cardiac Medical History: Reports: Hx Hypercholesterolemia Denies: Hx Atrial Fibrillation, Hx Congestive Heart Failure, Hx Coronary Artery Disease, Hx DVT, Hx Heart Attack, Hx Hypertension, Hx Peripheral Vascular Disease, Hx Pulmonary Embolism, Hx Heart Murmur Pulmonary Medical History: Denies: Hx Asthma, Hx COPD, Hx Respiratory Failure, Hx Sleep Apnea Neurological Medical History: Denies: Hx Cerebrovascular Accident, Hx Seizures Endocrine Medical History: Reports: Hx Diabetes Mellitus Type 2. Denies: Hx Diabetes Mellitus Type 1, Hx Hyperthyroidism, Hx Hypothyroidism Renal/ Medical History: Denies: Hx Kidney Stones, Hx Peritoneal Dialysis GI Medical History: Denies: Hx Crohn's Disease, Hx Gastroesophageal Reflux Disease, Hx Ulcerative Colitis Musculoskeltal Medical History: Denies Hx Arthritis, Denies Hx Fibromyalgia, Denies Hx Gout, Denies Hx Muscular Dystrophy Skin Medical History: Denies Hx Eczema, Denies Hx Psoriasis Psychiatric Medical History: Reports: Hx Schizophrenia Denies: Hx Bipolar Disorder, Hx Depression, Hx Post Traumatic Stress Disorder Traumatic Medical History: Reports: Hx Fractures - left hip Past Surgical History: Reports: Hx Orthopedic Surgery - Left hip arthroplasty 06/20/2018. Denies: Hx Appendectomy, Hx Bowel Surgery, Hx Section, Hx Cholecystectomy, Hx Coronary Artery Bypass Graft, Hx Gastric Bypass Surgery, Hx Herniorrhaphy, Hx Hysterectomy, Hx Mastectomy, Hx Pacemaker, Hx Tonsillectomy, Hx Tubal Ligation - Immunizations Hx Diphtheria, Pertussis, Tetanus Vaccination: Yes History of Influenza Vaccine for 05/2017 - 10/2017 Season: Unknown Doctor's Discharge - Discharge Referrals: HOLDEN RHODES MD [Primary Care Provider] - Follow up as needed
[2018-10-11 13:16] LABS: ABSOLUTE EOSINOPHILS # (AUTO) 0.3 10^3/uL (0.0-0.6); ABSOLUTE LYMPHOCYTES (AUTO) 2.1 10^3/uL (0.5-4.7); ABSOLUTE MONOCYTES (AUTO) 0.7 10^3/uL (0.1-1.4); ABSOLUTE NEUT (AUTO) 7.4 10^3/uL (1.7-8.2); BASOPHILS % (AUTO) 0.4 % (0-2); EOSINOPHILS % (AUTO) 2.4 % (0-6); HEMATOCRIT 36.2 % (36.0-47.0); HEMOGLOBIN 12.3 g/dL (12.0-15.5); LYMPHOCYTES % (AUTO) 19.7 % (13-45); MEAN CORPUSCULAR HGB CONC 34.1 g/dL (32.0-36.0); MEAN CORPUSCULAR VOLUME 91 fl (80-97); MONOCYTES % (AUTO) 6.9 % (3-13); PLATELET COUNT 654 10^3/uL (150-450); RED BLOOD COUNT 3.98 10^6/uL (3.72-5.28); SEGMENTED NEUTROPHILS % (AUTO) 70.6 % (42-78); TOTAL CELLS COUNTED % (AUTO) 100 %; WHITE BLOOD COUNT 10.5 10^3/uL (4.0-10.5)
[2018-10-11 13:38] LABS: ALANINE AMINOTRANSFERASE 21 U/L (9-52); ALBUMIN 3.9 g/dL (3.5-5.0); ALKALINE PHOSPHATASE 154 U/L (38-126); ANION GAP 11 (5-19); ASPARTATE AMINO TRANSFERASE 26 U/L (14-36); BILIRUBIN,DIRECT 0.2 mg/dL (0.0-0.4); BILIRUBIN,TOTAL 0.3 mg/dL (0.2-1.3); BLOOD UREA NITROGEN 23 mg/dL (7-20); CALCIUM 10.5 mg/dL (8.4-10.2); CARBON DIOXIDE 26 mmol/L (22-30); CHLORIDE 105 mmol/L (98-107); GLUCOSE 121 mg/dL (75-110); POTASSIUM 4.9 mmol/L (3.6-5.0); SODIUM 142.3 mmol/L (137-145); TOTAL PROTEIN 6.9 g/dL (6.3-8.2)
--- NOTE | 2018-10-11 14:50 | ER Document Report ---
ED General - General Chief Complaint: Skin Problem Stated Complaint: WOUND CHECK Time Seen by Provider: 10/11/18 12:15 Primary Care Provider: HOLDEN RHODES MD [Primary Care Provider] - Follow up as needed JUDITH MOTA MD [ACTIVE STAFF] - Follow up tomorrow Mode of Arrival: Wheelchair Notes: Patient is a 62-year-old female with recent total hip arthroplasty revision that presents to the emergency department for chief complaint of possible wound infection. Patient had a total hip arthroplasty revision on 09/29/2018, she has been home getting rehab, and had a home health nurse had visited today, they are concerned of a possible infection to her surgical wound so she was advised to co me to the emergency department. They noticed a foul odor associated with the drainage. She has had bloody drainage for the most part since the time of surgery, that is been red and clear in nature, it seemed to change today so they called the orthopedic surgeon's office who advised them to come to the emergency department. She is had some discomfort over this area, but overall has been progressing with her therapy. She denies having any groin pain, denies fevers, chills, night sweats, chest pain, shortness of breath, nausea, vomiting or abdominal pain. 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 Past Medical History: Diabetes mellitus Past Surgical History: Total hip arthroplasty with revision, cataract surgery Social History: Currently smokes cigarettes daily, denies alcohol or drug use. Family History: Reviewed and noncontributory for presenting illness Allergies: Reviewed, see documented allergy list. REVIEW OF SYSTEMS: Other than noted above, the 12 point review of systems was reviewed with the patient and were negative, all pertinent findings are included in the HPI. PHYSICAL EXAMINATION: Vital signs reviewed, nursing noted reviewed. GENERAL: Elderly female, no acute distress HEAD: Atraumatic, normocephalic. EYES: Eyes appear normal, extraocular movements intact, sclera anicteric, conjunctiva are normal. ENT: nares patent, oropharynx clear without exudates. Moist mucous membranes. NECK: Normal range of motion, supple without lymphadenopathy LUNGS: Breath sounds clear to auscultation bilaterally and equal. No wheezes rales or rhonchi. HEART: Regular rate and rhythm without murmurs ABDOMEN: Soft, nontender, normoactive bowel sounds. No rebound, guarding, or rigidity. No masses appreciated. EXTREMITIES: Over the posterior lateral aspect of the patient's left hip, there is a long surgical incisional wound, with donald in place, there is very mild erythema on the distal portion of the surgical wound, and mild tenderness to palpation to the area, there is a serosanguineous drainage noted, no discrete purulent drainage noted on my exam. The dressing is saturated in the proximal and posterior aspect, in the dependent position of the patient's wound. There is no active drainage at this time. The rest the patient's extremity exam is unremarkable, she does have good range of motion of the hip, knee, and ankle of the left leg, her upper extremities are unremarkable as well as her right lower extremity. NEUROLOGICAL: No focal neurological deficits. Moves all extremities spontaneously Motor and sensory grossly intact on exam. PSYCH: Normal mood, normal affect. SKIN: Warm, Dry, normal turgor, no rashes or lesions noted on exposed skin TRAVEL OUTSIDE OF THE [place] IN LAST 30 DAYS: No - Related Data Allergies/Adverse Reactions: merbromin [From Biomode - Biomolecular Determination] Allergy (Verified 09/15/18 12:40) Past Medical History - General Information source: Patient - Social History Smoking Status: Current Every Day Smoker Chew tobacco use (# tins/day): No Frequency of alcohol use: None Family History: Reviewed & Not Pertinent, DM Patient has suicidal ideation: No Patient has homicidal ideation: No - Past Medical History Cardiac Medical History: Reports: Hx Hypercholesterolemia Denies: Hx Atrial Fibrillation, Hx Congestive Heart Failure, Hx Coronary Artery Disease, Hx DVT, Hx Heart Attack, Hx Hypertension, Hx Peripheral Vascular Disease, Hx Pulmonary Embolism, Hx Heart Murmur Pulmonary Medical History: Denies: Hx Asthma, Hx COPD, Hx Respiratory Failure, Hx Sleep Apnea Neurological Medical History: Denies: Hx Cerebrovascular Accident, Hx Seizures Endocrine Medical History: Reports: Hx Diabetes Mellitus Type 2. Denies: Hx Diabetes Mellitus Type 1, Hx Hyperthyroidism, Hx Hypothyroidism Renal/ Medical History: Denies: Hx Kidney Stones, Hx Peritoneal Dialysis GI Medical History: Denies: Hx Crohn's Disease, Hx Gastroesophageal Reflux Disease, Hx Ulcerative Colitis Musculoskeletal Medical History: Denies Hx Arthritis, Denies Hx Fibromyalgia, Denies Hx Gout, Denies Hx Muscular Dystrophy Skin Medical History: Denies Hx Eczema, Denies Hx Psoriasis Psychiatric Medical History: Reports: Hx Schizophrenia Denies: Hx Bipolar Disorder, Hx Depression, Hx Post Traumatic Stress Disorder Traumatic Medical History: Reports: Hx Fractures - left hip Past Surgical History: Reports: Hx Orthopedic Surgery - Left hip arthroplasty 06/20/2018. Denies: Hx Appendectomy, Hx Bowel Surgery, Hx Section, Hx Cholecystectomy, Hx Coronary Artery Bypass Graft, Hx Gastric Bypass Surgery, Hx Herniorrhaphy, Hx Hysterectomy, Hx Mastectomy, Hx Pacemaker, Hx Tonsillectomy, Hx Tubal Ligation - Immunizations Hx Diphtheria, Pertussis, Tetanus Vaccination: Yes Physical Exam - Vital signs Vitals: Temp Pulse Resp BP Pulse Ox 97.6 F 89 18 103/69 95 10/11/18 12:06 10/11/18 12:06 10/11/18 12:06 10/11/18 12:06 10/11/18 12:06 Course - Re-evaluation Re-evalutation: Patient seen and examined, vital signs reviewed. Patient overall appears well on exam, nontoxic-appearing wound, had serosanguineous drainage, did not appear to be significantly infected at this time, no discrete purulent drainage noted. Blood work was obtained, including ESR and CRP, did discuss his case with Dr. Mota. He requested inflammatory markers to be obtained, and he would see her in the office tomorrow, patient is given a dose of Bactrim in the emergency department Patient's ESR was consistent with her prior labs and inflammatory markers, as well as the CRP, her wound did not appear to be a deep infectious wound, there is no dehiscence, there is mild erythema, I feel that the patient can be discharged home on Bactrim, for 7 days has an appoint with her orthopedic s urgeon tomorrow, her dressing was changed, and patient was discharged home. Laboratory 10/11/18 10/11/18 10/11/18 13:01 13:01 13:01 WBC 10.5 RBC 3.98 Hgb 12.3 Hct 36.2 MCV 91 MCH 31.0 MCHC 34.1 RDW 16.0 H Plt Count 654 H Seg Neutrophils % 70.6 Lymphocytes % 19.7 Monocytes % 6.9 Eosinophils % 2.4 Basophils % 0.4 Absolute Neutrophils 7.4 Absolute Lymphocytes 2.1 Absolute Monocytes 0.7 Absolute Eosinophils 0.3 Absolute Basophils 0.0 ESR 103 H Sodium 142.3 Potassium 4.9 Chloride 105 Carbon Dioxide 26 Anion Gap 11 BUN 23 H Creatinine 1.27 H Est GFR ( Amer) 52 L Est GFR (Non-Af Amer) 43 L Glucose 121 H Calcium 10.5 H Total Bilirubin 0.3 Direct Bilirubin 0.2 Neonat Total Bilirubin Not Reportable Neonat Direct Bilirubin Not Reportable Neonat Indirect Bili Not Reportable AST 26 ALT 21 Alkaline Phosphatase 154 H C-Reactive Protein Total Protein 6.9 Albumin 3.9 10/11/18 13:01 WBC RBC Hgb Hct MCV MCH MCHC RDW Plt Count Seg Neutrophils % Lymphocytes % Monocytes % Eosinophils % Basophils % Absolute Neutrophils Absolute Lymphocytes Absolute Monocytes Absolute Eosinophils Absolute Basophils ESR Sodium Potassium Chloride Carbon Dioxide Anion Gap BUN Creatinine Est GFR ( Amer) Est GFR (Non-Af Amer) Glucose Calcium Total Bilirubin Direct Bilirubin Neonat Total Bilirubin Neonat Direct Bilirubin Neonat Indirect Bili AST ALT Alkaline Phosphatase C-Reactive Protein 42.1 H Total Protein Albumin - Vital Signs Vital signs: Temp Pulse Resp BP Pulse Ox 98.1 F 102 H 20 136/51 H 94 10/11/18 16:34 10/11/18 16:34 10/11/18 16:34 10/11/18 16:34 10/11/18 16:34 - Laboratory Result Diagrams: 10/11/18 13:01 10/11/18 13:01 Laboratory results interpreted by me: 10/11/18 10/11/18 10/11/18 13:01 13:01 13:01 RDW 16.0 H Plt Count 654 H ESR 103 H BUN 23 H Creatinine 1.27 H Est GFR ( Amer) 52 L Est GFR (Non-Af Amer) 43 L Glucose 121 H Calcium 10.5 H Alkaline Phosphatase 154 H C-Reactive Protein 10/11/18 13:01 RDW Plt Count ESR BUN Creatinine Est GFR ( Amer) Est GFR (Non-Af Amer) Glucose Calcium Alkaline Phosphatase C-Reactive Protein 42.1 H Discharge - Discharge Clinical Impression: Wound infection Condition: Stable Disposition: HOME, SELF-CARE Instructions: Wound Infection ([facility]) Additional Instructions: Please complete the entire course of antibiotics as prescribed. While you are taking this antibiotic you need to DISCONTINUE TAKING THE LISINOPRIL 10mg TABLET THAT YOU TAKE FOR BLOOD PRESSURE. You can resume taking the lisinopril after you finish the antibiotics. Please follow-up with Dr. Mota in the office tomorrow at your regularly scheduled appointment. Prescriptions: Sulfamethoxazole/Trimethoprim [Bactrim Ds Tablet] 1 each PO BID #14 tablet Referrals: HOLDEN RHODES MD [Primary Care Provider] - Follow up as needed JUDITH MOTA MD [ACTIVE STAFF] - Follow up tomorrow
[2018-10-11] MEDS ORDERED: CEPHALEXIN 500 MG CAPSULE PO ONE (15:13)
[2018-10-11] MEDS ORDERED: SULFAMETHOXAZOLE/TRIMETHOPRIM 800-160 MG TABLET PO ONE (15:46)
[2018-10-11 16:41] VITALS: BP 136/51
== END 2018-10-11 16:44 | disposition home or self-care (01) ==
LOC: ER 12:03
DX: T81.49XA Infection following a procedure, other surgical site, initial encounter (principal); Z98.890 Other specified postprocedural states; X58.XXXA Exposure to other specified factors, initial encounter; E11.9 Type 2 diabetes mellitus without complications; F17.210 Nicotine dependence, cigarettes, uncomplicated
CPT/HCPCS: 99282; 36415; 87040; 85025; 85652; 86140; 80053; A9270